=== PATIENT | female | born 1950 | race Caucasian/White ===

== ENCOUNTER 2016-07-28 13:05 | Outpatient (CLI) | payer MEDICARE, OTHER | END 2016-07-28 13:06 | DX: N18.9 Chronic kidney disease, unspecified (principal); E78.5 Hyperlipidemia, unspecified; E11.9 Type 2 diabetes mellitus without complications; I10 Essential (primary) hypertension ==

== ENCOUNTER 2017-08-06 08:00 | Outpatient (CLI) | payer MEDICARE, OTHER ==
[2017-08-06 19:32] LABS: ALBUMIN 3.6 g/dL (3.2-5.5); ALBUMIN/GLOBULIN RATIO 0.9 (1.0-2.2); ALKALINE PHOSPHATASE 66 IU/L (42-121); ALT ALANINE AMINOTRANSFERASE 18 IU/L (10-60); AST ASPARTATE AMINOTRANSFERASE 21 IU/L (10-42); BILIRUBIN,TOTAL 0.2 mg/dL (0.2-1.0); BUN - BLOOD UREA NITROGEN 30 mg/dL (6-20); CALCIUM 8.6 mg/dL (8.5-10.3); CARBON DIOXIDE - CO2 24 mmol/L (21-32); CHLORIDE 104 mmol/L (101-111); CHOL/HDL RATIO 4.9 (<4.4); CHOLESTEROL 227 mg/dL; CREATININE 1.6 mg/dL (0.4-1.0); GFR - MDRD 32 (>89); GLUCOSE 98 mg/dL (70-100); HDL CHOLESTEROL 46 mg/dL; LDL CHOLESTEROL,CALCULATED 130 mg/dL; LDL/HDL RATIO 2.8 (<4.4); SODIUM 140 mmol/L (135-145); TOTAL PROTEIN 7.6 g/dL (6.7-8.2); VLDL CHOLESTEROL 51 mg/dL
[2017-08-06 20:12] LABS: HB2 TOTAL 13.9 g/dL; HEMOGLOBIN A1C 0.69 g/dL; HEMOGLOBIN A1C % 6.7 % (4.6-6.2)
== END 2017-08-06 08:01 | disposition home or self-care (01) ==
LOC: LAB.WCP 08:00
PROVIDERS: ATTEND Family Medicine
DX: E11.22 Type 2 diabetes mellitus with diabetic chronic kidney disease (principal); I12.9 Hypertensive chronic kidney disease with stage 1 through stage 4 chronic kidney disease, or unspecified chronic kidney disease; N18.9 Chronic kidney disease, unspecified; E78.5 Hyperlipidemia, unspecified
CPT/HCPCS: 36415; 80053; 80061; 82043; 83036; 83721

== ENCOUNTER 2018-06-23 14:41 | Outpatient (CLI) | payer MEDICARE, OTHER ==
[2018-06-23 18:56] LABS: BASOPHILS # (AUTO) 0.1 10^3/uL (0.0-0.1); EOSINOPHILS # (AUTO) 0.2 10^3/uL (0.0-0.7); EOSINOPHILS % (AUTO) 2.6 %; HGB - HEMOGLOBIN 11.3 g/dL (12.0-16.0); LYMPHOCYTES # (AUTO) 2.3 10^3/uL (1.5-3.5); LYMPHOCYTES % (AUTO) 26.2 %; MEAN CORPUSCULAR HGB CONC 32.3 g/dL (32.0-36.0); MEAN CORPUSCULAR VOLUME 86.7 fL (81.0-99.0); MEAN PLATELET VOLUME 8.3 fL (7.9-10.8); MONOCYTES # (AUTO) 0.5 10^3/uL (0.0-1.0); MONOCYTES % (AUTO) 5.6 %; NEUTROPHILS # (AUTO) 5.6 10^3/uL (1.5-6.6); NEUTROPHILS % (AUTO) 64.6 %; PLT - PLATELET COUNT 292 10^3/uL (130-450); RED BLOOD COUNT 4.03 10^6/uL (4.20-5.40); WHITE BLOOD COUNT 8.6 x10^3/uL (4.8-10.8)
[2018-06-23 19:21] LABS: ALBUMIN/GLOBULIN RATIO 0.7 (1.0-2.2); ALKALINE PHOSPHATASE 62 IU/L (42-121); ALT ALANINE AMINOTRANSFERASE 13 IU/L (10-60); AST ASPARTATE AMINOTRANSFERASE 14 IU/L (10-42); BILIRUBIN,TOTAL 0.4 mg/dL (0.2-1.0); BUN - BLOOD UREA NITROGEN 33 mg/dL (6-20); CALCIUM 8.8 mg/dL (8.5-10.3); CARBON DIOXIDE - CO2 24 mmol/L (21-32); CHLORIDE 106 mmol/L (101-111); CHOL/HDL RATIO 4.8 (<4.4); CHOLESTEROL 213 mg/dL; CREATININE 2.4 mg/dL (0.4-1.0); GFR - MDRD 20 (>89); GLUCOSE 74 mg/dL (70-100); HDL CHOLESTEROL 44 mg/dL; LDL CHOLESTEROL,CALCULATED 111 mg/dL; LDL/HDL RATIO 2.5 (<4.4); SODIUM 141 mmol/L (135-145); TOTAL PROTEIN 7.2 g/dL (6.7-8.2); VLDL CHOLESTEROL 58 mg/dL
[2018-06-23 20:13] LABS: HB2 TOTAL 10.8 g/dL; HEMOGLOBIN A1C 0.45 g/dL
== END 2018-06-23 23:59 | disposition home or self-care (01) ==
LOC: LAB.WCP 14:41
PROVIDERS: ATTEND Family Medicine
DX: I10 Essential (primary) hypertension (principal); E11.9 Type 2 diabetes mellitus without complications; N18.9 Chronic kidney disease, unspecified; E78.5 Hyperlipidemia, unspecified
CPT/HCPCS: 36415; 80053; 80061; 83036; 83721; 84443; 85025

== ENCOUNTER 2018-07-14 14:48 | Outpatient (CLI) | payer MEDICARE, OTHER ==
--- NOTE | 2018-07-14 16:38 | XRAY Report ---
Reason: COUGH Procedure Date: 07/14/2018 Accession Number: [id number] / [id number] Procedure: WCP - Chest 2 View X-Ray CPT Code: 47917 FULL RESULT: EXAM: CHEST RADIOGRAPHY EXAM DATE: 07/14/2018 02:50 PM. CLINICAL HISTORY: COUGH. COMPARISON: None. TECHNIQUE: 2 views. FINDINGS: Lungs/Pleura: No focal opacities evident. No pleural effusion. No pneumothorax. Normal volumes. Mediastinum: Cardiomegaly. Other: Degenerative change in the spine. IMPRESSION: Cardiomegaly. Clear lungs. RADIA
== END 2018-07-14 14:49 | disposition home or self-care (01) ==
LOC: DI.WCP 14:48
PROVIDERS: ATTEND Family Medicine
DX: R05 Cough (principal); I51.7 Cardiomegaly
CPT/HCPCS: 71046

== ENCOUNTER 2018-07-23 13:15 | Outpatient (CLI) | payer MEDICARE, OTHER | END 2018-07-23 13:16 | disposition home or self-care (01) | LOC: DI 13:15 | PROVIDERS: ATTEND Family Medicine | DX: I51.7 Cardiomegaly (principal); I34.0 Nonrheumatic mitral (valve) insufficiency | CPT/HCPCS: 93306 ==

== ENCOUNTER 2018-08-10 15:34 | Outpatient (CLI) | payer MEDICARE, OTHER ==
[2018-08-10 19:47] LABS: CREATININE,URINE 176.1 mg/dL; PROTEIN/CREATININE RATIO,URINE 5.3 (<=0.2)
== END 2018-08-10 15:35 | disposition home or self-care (01) ==
LOC: LAB.WCP 15:34
PROVIDERS: ATTEND Internal Medicine Nephrology
DX: R80.9 Proteinuria, unspecified (principal)
CPT/HCPCS: 82570; 84156

== ENCOUNTER 2018-08-17 08:00 | Outpatient (CLI) | payer MEDICARE, OTHER ==
[2018-08-17 19:27] LABS: CALCIUM 8.9 mg/dL (8.5-10.3); CREATININE 2.4 mg/dL (0.4-1.0)
[2018-08-19 22:11] LABS: ANCA SCREEN NEGATIVE (NEGATIVE)
[2018-08-19 23:31] LABS: ANA SCREEN NEGATIVE (NEGATIVE)
[2018-08-20 11:30] LABS: GLOM BASEMENT MEMBRANE AB IGG <1.0 AI (<1.0)
[2018-08-25 12:51] LABS: ALPHA 1 GLOBULIN 0.4 g/dL (0.2-0.3); ALPHA 2 GLOBULIN 1.1 g/dL (0.5-0.9); BETA 1 GLOBULIN 0.5 g/dL (0.4-0.6); BETA 2 GLOBULIN 0.6 g/dL (0.2-0.5); GAMMA GLOBULIN 1.1 g/dL (0.8-1.7)
== END 2018-08-17 23:59 ==
LOC: LAB.WCP 08:00
PROVIDERS: ATTEND Internal Medicine Nephrology
DX: L93.2 Other local lupus erythematosus (principal); I50.32 Chronic diastolic (congestive) heart failure; M31.30 Wegener's granulomatosis without renal involvement; N00.9 Acute nephritic syndrome with unspecified morphologic changes; D47.2 Monoclonal gammopathy
CPT/HCPCS: 36415; 80048; 81599; 82570; 83520; 83880; 84155; 84165; 84166; 86021; 86038

== ENCOUNTER 2018-09-01 08:00 | Outpatient (CLI) | payer MEDICARE, OTHER ==
[2018-09-01 19:19] LABS: CALCIUM 8.9 mg/dL (8.5-10.3); CREATININE 2.6 mg/dL (0.4-1.0)
== END 2018-09-01 23:59 | disposition home or self-care (01) ==
LOC: LAB.WCP 08:00
PROVIDERS: ATTEND Internal Medicine Nephrology
DX: N05.9 Unspecified nephritic syndrome with unspecified morphologic changes (principal)
CPT/HCPCS: 36415; 80048

== ENCOUNTER 2018-09-23 11:27 | Outpatient (CLI) | payer MEDICARE, OTHER ==
[2018-09-23 11:52] LABS: HGB - HEMOGLOBIN 8.9 g/dL (12.0-16.0); MEAN CORPUSCULAR HEMOGLOBIN 28.7 pg (27.0-31.0); MEAN CORPUSCULAR HGB CONC 33.3 g/dL (32.0-36.0); RED BLOOD COUNT 3.11 10^6/uL (4.20-5.40); RED CELL DISTRIBUTION WIDTH 14.3 % (12.0-15.0); WHITE BLOOD COUNT 10.1 x10^3/uL (4.8-10.8)
[2018-09-23 11:57] LABS: CALCIUM 7.8 mg/dL (8.5-10.3); CREATININE 2.9 mg/dL (0.4-1.0)
== END 2018-09-23 11:28 | disposition home or self-care (01) ==
LOC: LAB 11:27
PROVIDERS: ATTEND Internal Medicine Nephrology
DX: N05.9 Unspecified nephritic syndrome with unspecified morphologic changes (principal); D70.9 Neutropenia, unspecified; D63.1 Anemia in chronic kidney disease
CPT/HCPCS: 36415; 80048; 85027

== ENCOUNTER 2018-09-29 14:01 | Outpatient (CLI) | payer MEDICARE, OTHER ==
--- NOTE | 2018-09-29 19:13 | XRAY Report ---
Reason: DYSPNEA Procedure Date: 09/29/2018 Accession Number: [id number] / [id number] Procedure: WCP - Chest 2 View X-Ray CPT Code: 32305 FULL RESULT: EXAM: CHEST RADIOGRAPHY EXAM DATE: 09/29/2018 02:16 PM. CLINICAL HISTORY: Status post retroperitoneal bleed from kidney biopsy now with left-sided pain, shortness of breath and decreased oxygen saturation. COMPARISON: 07/14/2018 and 09/20/2018 chest x-ray TECHNIQUE: 2 views. FINDINGS: Lungs/Pleura: Moderate left pleural effusion and associated passive atelectasis. Lungs otherwise clear. Mediastinum: Large heart Other: Slight height loss at T7 and T8. IMPRESSION: Left pleural effusion and basilar airspace disease. Cardiomegaly. RADIA
== END 2018-09-29 14:02 | disposition home or self-care (01) ==
LOC: DI.WCP 14:01
PROVIDERS: ATTEND Family Medicine
DX: R06.00 Dyspnea, unspecified (principal); J90 Pleural effusion, not elsewhere classified; I51.7 Cardiomegaly
CPT/HCPCS: 71046

== ENCOUNTER 2018-09-29 14:59 | Emergency (ER) | payer MEDICARE, OTHER ==
[2018-09-29 16:38] LABS: BASOPHILS # (AUTO) 0.1 10^3/uL (0.0-0.1); BASOPHILS % (AUTO) 0.9 %; EOSINOPHILS # (AUTO) 0.1 10^3/uL (0.0-0.7); EOSINOPHILS % (AUTO) 0.8 %; HGB - HEMOGLOBIN 9.6 g/dL (12.0-16.0); LYMPHOCYTES # (AUTO) 1.2 10^3/uL (1.5-3.5); LYMPHOCYTES % (AUTO) 9.1 %; MEAN CORPUSCULAR HEMOGLOBIN 27.8 pg (27.0-31.0); MEAN CORPUSCULAR HGB CONC 32.6 g/dL (32.0-36.0); MEAN CORPUSCULAR VOLUME 85.4 fL (81.0-99.0); MEAN PLATELET VOLUME 7.6 fL (7.9-10.8); MONOCYTES # (AUTO) 0.9 10^3/uL (0.0-1.0); MONOCYTES % (AUTO) 6.6 %; NEUTROPHILS # (AUTO) 10.9 10^3/uL (1.5-6.6); NEUTROPHILS % (AUTO) 82.6 %; PLT - PLATELET COUNT 446 10^3/uL (130-450); RED BLOOD COUNT 3.44 10^6/uL (4.20-5.40); WHITE BLOOD COUNT 13.2 x10^3/uL (4.8-10.8)
[2018-09-29 16:46] LABS: INR 1.2 (0.8-1.2); PT - PROTHROMBIN TIME 13.2 secs (9.9-12.6)
[2018-09-29 16:53] LABS: ALBUMIN 2.9 g/dL (3.2-5.5); ALBUMIN/GLOBULIN RATIO 0.6 (1.0-2.2); BILIRUBIN,TOTAL 0.9 mg/dL (0.2-1.0); CALCIUM 8.5 mg/dL (8.5-10.3); CREATININE 2.8 mg/dL (0.4-1.0); TOTAL PROTEIN 7.5 g/dL (6.7-8.2)
--- NOTE | 2018-09-29 17:32 | ED Physician Documentation ---
History of Present Illness - Stated complaint Stated Complaint: SENT BY DOC - Chief complaint Chief Complaint: General - History obtained from History obtained from: Patient, Family - History of Present Illness Timing: How many days ago (several) - Additonal information Additional information: 68-year-old female presents to the emergency department 10 days status post a kidney biopsy accompanied by retroperitoneal hematoma. She received 2 units of blood after this. She states she has had increasing shortness of breath over the past week or so, saw her doctor today and had a left-sided pleural effusion on chest x-ray. Her primary care doctor was concerned about a possible recurrent retroperitoneal bleed and sent her here. Patient states she has had n o fevers. No coughing. She is short of breath with exertion. No leg pain or chest pain. Better with rest and worse with exertion Review of Systems Constitutional: denies: Fever, Chills Respiratory: denies: Cough GI: denies: Abdominal Pain, Nausea, Vomiting, Diarrhea : denies: Dysuria, Frequency, Hesitancy, Hematuria Skin: denies: Rash Musculoskeletal: denies: Neck pain, Back pain Neurologic: denies: Headache PD PAST MEDICAL HISTORY - Past Medical History Past Medical History: Yes Cardiovascular: Hypertension Endocrine/Autoimmune: Type 2 diabetes - Past Surgical History Past Surgical History: Yes - Present Medications Home Medications: Ambulatory Orders Medication Instructions Recorded Confirmed Cephalexin [Keflex] 500 mg PO Q6H 7 Days capsule 01/04/15 - Allergies Allergies/Adverse Reactions: Allergies Allergy/AdvReac Type Severity Reaction Status Date / Time No Known Drug Allergies Allergy Verified 09/29/18 15:59 - Social History Does the pt smoke?: No Smoking Status: Never smoker Does the pt drink ETOH?: No Does the pt have substance abuse?: No - Immunizations Immunizations are current?: No - POLST Patient has POLST: No Results - Vitals Vitals: Vital Signs - 24 hr 09/29/18 09/29/18 09/29/18 15:50 17:09 19:12 Temperature 36.4 C L Heart Rate 63 70 63 Respiratory 18 16 18 Rate Blood Pressure 138/65 H 166/77 H 150/74 H O2 Saturation 95 95 95 09/29/18 09/29/18 09/29/18 19:42 20:39 22:00 Temperature 37.0 C 37.0 C Heart Rate 71 63 57 L Respiratory 25 H 14 18 Rate Blood Pressure 174/81 H 157/70 H 145/60 H O2 Saturation 95 98 97 Oxygen O2 Source Room air Oxygen Flow Rate 2 - Labs Labs: Laboratory Tests 09/29/18 09/29/18 09/29/18 16:30 16:30 16:30 WBC 13.2 H RBC 3.44 L Hgb 9.6 L Hct 29.4 L MCV 85.4 MCH 27.8 MCHC 32.6 RDW 14.0 Plt Count 446 MPV 7.6 L Neut # (Auto) 10.9 H Lymph # (Auto) 1.2 L Jack # (Auto) 0.9 Eos # (Auto) 0.1 Baso # (Auto) 0.1 Absolute Nucleated RBC 0.01 Nucleated RBC % 0.1 PT 13.2 H INR 1.2 APTT 33.0 Sodium 134 L Potassium 4.2 Chloride 103 Carbon Dioxide 18 L Anion Gap 13.0 BUN 42 H Creatinine 2.8 H Estimated GFR (MDRD) 17 L Glucose 73 Calcium 8.5 Total Bilirubin 0.9 AST 41 ALT 56 Alkaline Phosphatase 135 H Total Protein 7.5 Albumin 2.9 L Globulin 4.6 H Albumin/Globulin Ratio 0.6 L Lipase 52 H - Rads (name of study) CT abd/pelvis Radiology: Prelim report reviewed, EMP read contemporaneously, See rad report (Moderate amount of left perinephric and retroperitoneal hemorrhage, mildly displacing the left kidney. ) CT chest Radiology: Prelim report reviewed, EMP read contemporaneously, See rad report (Small to moderate left pleural effusion with basilar left lower lobe collapse. 2. Cardiomegaly. ) PD MEDICAL DECISION MAKING - ED course Complexity details: reviewed results, re-evaluated patient, considered differential, d/w patient, d/w family, d/w python consultant ED course: 68-year-old female presents to the emergency department status post a left kidney biopsy approximately 10 days ago. She received a blood transfusion after that. Appears to still have a moderate amount of hemorrhage that appears to be irritating the diaphragm likely causing her pleural effusion on the left. She is hypoxic as well, 88% on room air when walking to the bed. Feels better on oxygen. Discussed the case with 1944 Star Finch in [place] nephrology who recommends admission and diuresis. He recommends admitting the patient here. Discussed the case with 1949 Dr. Ramos, hospitalist he states that the patient is an appropriate for our facility and recommends transfer to [facility]. Recontacted 2004 Dr. Waite who states that that the patient can be transferred to [facility] and accepts in transfer. COBRA forms filled out. Patient transferred This document was made in part using voice recognition software. While efforts are made to proofread this document, sound alike and grammatical errors may occur. Departure - Departure Disposition: 02 Transfer Acute Care Hosp Clinical Impression: Retroperitoneal hemorrhage, Pleural effusion, left, Hypoxia Condition: Stable
--- NOTE | 2018-09-29 19:16 | CT Report ---
Reason: L pleural effusion Procedure Date: 09/29/2018 Accession Number: [id number] / [id number] Procedure: CT - CHEST WO CPT Code: FULL RESULT: EXAM: CT CHEST EXAM DATE: 09/29/2018 05:59 PM. CLINICAL HISTORY: Left pleural effusion. COMPARISONS: ABDOMEN/PELVIS W/ 09/29/2018 5:59 PM CHEST 2 VIEW 09/29/2018 1:55 PM. TECHNIQUE: Routine helical CT imaging was performed through the chest. IV contrast: None. Reconstructions: Coronal and sagittal. In accordance with CT protocol optimization, one or more of the following dose reduction techniques were utilized for this exam: automated exposure control, adjustment of mA and/or KV based on patient size, or use of iterative reconstructive technique. FINDINGS: Lungs/Pleura: There is a small to moderate left pleural effusion. There is basilar left lower lobe collapse. There is mosaic attenuation throughout the remainder of the pulmonary parenchyma. Mild atelectasis in the inferior lingula. No right pleural effusion. No pneumothorax. Mediastinum: The heart is enlarged. No pericardial effusion. No lymphadenopathy. Bones: Unremarkable. Visualized Abdomen: See separately dictated CT. Other: None. IMPRESSION: 1. Small to moderate left pleural effusion with basilar left lower lobe collapse. 2. Cardiomegaly. RADIA
--- NOTE | 2018-09-29 19:35 | CT Report ---
Reason: recent kidney bx, possible retroperitoneal bleed? Procedure Date: 09/29/2018 Accession Number: [id number] / [id number] Procedure: CT - Abdomen/Pelvis WO CPT Code: FULL RESULT: EXAM: CT ABDOMEN AND PELVIS (CT KUB) EXAM DATE: 09/29/2018 05:59 PM. CLINICAL HISTORY: Recent kidney biopsy COMPARISONS: CHEST W/ 09/29/2018 5:59 PM. TECHNIQUE: Routine axial helical CT imaging was performed through the abdomen and pelvis without IV contrast. Reconstructions: Coronal and sagittal. In accordance with CT protocol optimization, one or more of the following dose reduction techniques were utilized for this exam: automated exposure control, adjustment of mA and/or KV based on patient size, or use of iterative reconstructive technique. FINDINGS: Evaluation of solid abdominal organs is limited without intravenous contrast. Lung Bases: See separately dictated CT. Right Kidney/Ureter: No stone, hydronephrosis, or hydroureter. No perinephric fat stranding. Left Kidney/Ureter: Moderate amount of perinephric and retroperitoneal hemorrhage with dominant component measuring 7.1 x 4.7 x 13.4 cm. Hemorrhage extends into the left upper quadrant abutting the left hemidiaphragm measuring 5.2 x 4.0 cm. The left kidney is mildly displaced anteriorly by the hemorrhage. No hydronephrosis. Other Solid Organs: 12 mm hypoattenuating right liver lesion. Noncontrast images of the solid organs are grossly unremarkable. Gallbladder/Bile Ducts: Unremarkable. Peritoneal Cavity: No free fluid, free air or anna marie adenopathy. Left retroperitoneal hemorrhage as described. No hemoperitoneum. Pelvic Organs: The bladder is unremarkable. Uterus and adnexa are unremarkable. Vasculature: Mild atherosclerosis. Other: Left flank subcutaneous edema. IMPRESSION: Moderate amount of left perinephric and retroperitoneal hemorrhage, mildly displacing the left kidney. REY The call report notification system was initiated by Dr. Cesar Law at 07:21 PM on 09/29/2018. The above call report findings were discussed with Yeyo Velazquez by Dr. Cesar Law at 07:28 PM on 09/29/2018.
[2018-09-29 23:34] VITALS: BP 154/72
== END 2018-09-29 23:45 | disposition short-term general hospital (02) ==
LOC: ED 14:59
DX: R58 Hemorrhage, not elsewhere classified (principal); J90 Pleural effusion, not elsewhere classified; R09.02 Hypoxemia; I10 Essential (primary) hypertension; E11.9 Type 2 diabetes mellitus without complications; I51.7 Cardiomegaly
CPT/HCPCS: 36415; 71046; 71250; 74176; 80053; 83690; 85025; 85610; 85730; 99284

== ENCOUNTER 2018-10-19 14:21 | Outpatient (CLI) | payer MEDICARE, OTHER ==
[2018-10-19 19:58] LABS: BASOPHILS # (AUTO) 0.1 10^3/uL (0.0-0.1); BASOPHILS % (AUTO) 1.4 %; EOSINOPHILS # (AUTO) 0.2 10^3/uL (0.0-0.7); EOSINOPHILS % (AUTO) 2.6 %; HGB - HEMOGLOBIN 10.8 g/dL (12.0-16.0); LYMPHOCYTES # (AUTO) 2.1 10^3/uL (1.5-3.5); LYMPHOCYTES % (AUTO) 24.7 %; MEAN CORPUSCULAR HEMOGLOBIN 27.7 pg (27.0-31.0); MEAN CORPUSCULAR HGB CONC 31.9 g/dL (32.0-36.0); MEAN CORPUSCULAR VOLUME 86.8 fL (81.0-99.0); MEAN PLATELET VOLUME 8.7 fL (7.9-10.8); MONOCYTES # (AUTO) 0.6 10^3/uL (0.0-1.0); MONOCYTES % (AUTO) 7.2 %; NEUTROPHILS # (AUTO) 5.3 10^3/uL (1.5-6.6); NEUTROPHILS % (AUTO) 64.1 %; PLT - PLATELET COUNT 375 10^3/uL (130-450); RED BLOOD COUNT 3.91 10^6/uL (4.20-5.40); RED CELL DISTRIBUTION WIDTH 14.5 % (12.0-15.0); WHITE BLOOD COUNT 8.3 x10^3/uL (4.8-10.8)
[2018-10-19 20:14] LABS: CALCIUM 9.1 mg/dL (8.5-10.3); CREATININE 3.1 mg/dL (0.4-1.0); PHOSPHORUS 4.6 mg/dL (2.5-4.6)
[2018-10-19 20:43] LABS: CREATININE,URINE 302.5 mg/dL; PROTEIN/CREATININE RATIO,URINE 4.1 (<=0.2)
== END 2018-10-19 14:22 | disposition home or self-care (01) ==
LOC: LAB.WCP 14:21
PROVIDERS: ATTEND Internal Medicine Nephrology
DX: N05.9 Unspecified nephritic syndrome with unspecified morphologic changes (principal); I50.32 Chronic diastolic (congestive) heart failure; E83.30 Disorder of phosphorus metabolism, unspecified; R80.9 Proteinuria, unspecified; N25.81 Secondary hyperparathyroidism of renal origin
CPT/HCPCS: 36415; 80048; 82570; 83880; 83970; 84100; 84156; 85025

== ENCOUNTER 2018-10-28 13:53 | Outpatient (CLI) | payer MEDICARE, OTHER ==
--- NOTE | 2018-10-28 16:14 | XRAY Report ---
Reason: PLEURAL EFFUSION Procedure Date: 10/28/2018 Accession Number: [id number] / [id number] Procedure: WCP - Chest 2 View X-Ray CPT Code: 60443 FULL RESULT: EXAM: CHEST RADIOGRAPHY 2 VIEWS EXAM DATE: 10/28/2018. CLINICAL HISTORY: Left pleural effusion. COMPARISON: PA and lateral chest on 09/29/2018.. TECHNIQUE: PA and lateral views. FINDINGS: Lungs/Pleura: The left pleural effusion and left lung atelectasis have resolved. Lungs appear clear. The vasculature is normal. No pneumothorax. Mediastinum: Cardiomegaly and aortic tortuosity are unchanged. Bones: Slight decrease in height at T7 and T8, probably developmental, and unchanged. IMPRESSION: Left pleural effusion and left lung atelectasis have resolved since 09/29/2018. Cardiomegaly and aortic tortuosity are unchanged. RADIA
== END 2018-10-28 13:54 | disposition home or self-care (01) ==
LOC: DI.WCP 13:53
PROVIDERS: ATTEND Family Medicine
DX: J90 Pleural effusion, not elsewhere classified (principal); I51.7 Cardiomegaly; Q25.46 Tortuous aortic arch
CPT/HCPCS: 71046

== ENCOUNTER 2018-11-03 08:00 | Outpatient (CLI) | payer MEDICARE, OTHER ==
[2018-11-03 18:59] LABS: CHOLESTEROL 257 mg/dL; HDL CHOLESTEROL 32 mg/dL; LDL CHOLESTEROL,CALCULATED 154 mg/dL; LDL/HDL RATIO 4.8 (<4.4); VLDL CHOLESTEROL 71 mg/dL
[2018-11-03 19:19] LABS: HB2 TOTAL 12.3 g/dL; HEMOGLOBIN A1C 0.52 g/dL
== END 2018-11-03 23:59 | disposition home or self-care (01) ==
LOC: LAB.WCP 08:00
PROVIDERS: ATTEND Family Medicine
DX: E11.9 Type 2 diabetes mellitus without complications (principal); E78.5 Hyperlipidemia, unspecified
CPT/HCPCS: 36415; 80061; 83036; 83721

== ENCOUNTER 2018-12-23 08:00 | Outpatient (CLI) | payer MEDICARE, OTHER ==
[2018-12-23 19:05] LABS: BASOPHILS # (AUTO) 0.1 10^3/uL (0.0-0.1); BASOPHILS % (AUTO) 0.6 %; EOSINOPHILS # (AUTO) 0.3 10^3/uL (0.0-0.7); EOSINOPHILS % (AUTO) 2.6 %; HGB - HEMOGLOBIN 11.7 g/dL (12.0-16.0); LYMPHOCYTES # (AUTO) 2.8 10^3/uL (1.5-3.5); LYMPHOCYTES % (AUTO) 23.6 %; MEAN CORPUSCULAR HEMOGLOBIN 28.8 pg (27.0-31.0); MEAN CORPUSCULAR HGB CONC 32.1 g/dL (32.0-36.0); MEAN CORPUSCULAR VOLUME 89.9 fL (81.0-99.0); MEAN PLATELET VOLUME 10.7 fL (7.9-10.8); MONOCYTES # (AUTO) 0.8 10^3/uL (0.0-1.0); NEUTROPHILS # (AUTO) 7.7 10^3/uL (1.5-6.6); NEUTROPHILS % (AUTO) 65.6 %; PLT - PLATELET COUNT 325 10^3/uL (130-450); RED BLOOD COUNT 4.06 10^6/uL (4.20-5.40); RED CELL DISTRIBUTION WIDTH 13.2 % (12.0-15.0); WHITE BLOOD COUNT 11.7 x10^3/uL (4.8-10.8)
[2018-12-23 19:34] LABS: CALCIUM 9.5 mg/dL (8.5-10.3); CREATININE 2.3 mg/dL (0.4-1.0)
== END 2018-12-23 23:59 | disposition home or self-care (01) ==
LOC: LAB.WCP 08:00
PROVIDERS: ATTEND Internal Medicine Nephrology
DX: N05.9 Unspecified nephritic syndrome with unspecified morphologic changes (principal); D70.9 Neutropenia, unspecified
CPT/HCPCS: 36415; 80048; 85025

== ENCOUNTER 2019-11-27 18:50 | Observation (INO) | payer MEDICARE, OTHER ==
--- NOTE | 2019-11-27 19:40 | XRAY Report ---
PROCEDURE: Chest 1 View X-Ray INDICATIONS: Chest pain TECHNIQUE: One view of the chest was acquired. COMPARISON: Chest x-ray, 2 view, October 28, 2018. FINDINGS: Surgical changes and devices: None. Lungs and pleura: Mild interstitial prominence. No pleural effusions or pneumothorax. Lungs are marta ar. Mediastinum: Mediastinal contours appear normal. Heart size is normal. Bones and chest wall: No suspicious bony lesions. Overlying soft tissues appear unremarkable. IMPRESSION: No acute cardiopulmonary disease. Reviewed by: Rakesh Bhardwaj MD on 11/27/2019 7:38 PM PDT Approved by: Rakesh Bhardwaj MD on 11/27/2019 7:38 PM PDT Station ID: [id number]
--- NOTE | 2019-11-27 20:22 | ED Physician Documentation ---
PD HPI FOCAL NEURO - Stated complaint Stated Complaint: NUMBNESS LT SHOULDER - Chief complaint Chief Complaint: Cardiac - History obtained from History obtained from: Patient, Family - Additional information Additional information: 69-year-old woman with history of renal insufficiency, over the last week she has had waxing and waning but fairly constant left-sided numbness mostly involving the arm but also notable in the face. She has some weakness in the left arm. Review of Systems Ten Systems: 10 systems reviewed and negative Constitutional: denies: Fever, Chills GI: denies: Abdominal Pain, Nausea, Vomiting Neurologic: reports: Headache (Mild frontal and left-sided) PD PAST MEDICAL HISTORY - Past Medical History Cardiovascular: Hypertension Endocrine/Autoimmune: Type 2 diabetes - Past Surgical History Past Surgical History: Yes - Present Medications Home Medications: Ambulatory Orders Medication Instructions Recorded Confirmed Felodipine [Felodipine ER] 10 mg PO DAILY 11/27/19 11/27/19 Furosemide [Lasix] 40 mg PO DAILY 11/27/19 11/27/19 Insulin Glargine [Lantus Solostar] 15 units SQ DAILY 11/27/19 11/27/19 Simvastatin 40 mg PO DAILY 11/27/19 11/27/19 atenoloL [Atenolol] 100 mg PO DAILY 11/27/19 11/27/19 - Allergies Allergies/Adverse Reactions: Allergies Allergy/AdvReac Type Severity Reaction Status Date / Time No Known Drug Allergies Allergy Verified 11/27/19 19:15 - Social History Does the pt smoke?: No Smoking Status: Never smoker Does the pt drink ETOH?: No Does the pt have substance abuse?: No - Immunizations Immunizations are current?: No - POLST Patient has POLST: No PD ED PE NORMAL - Vitals Vital signs reviewed: Yes - General General: Alert and oriented X 3, No acute distress - HEENT HEENT: PERRL, EOMI - Neck Neck: Supple, no meningeal sign, No bony TTP - Cardiac Cardiac: RRR, No murmur - Respiratory Respiratory: No respiratory distress, Clear bilaterally - Abdomen Abdomen: Non tender - Back Back: No CVA TTP, No spinal TTP - Derm Derm: Normal color, Warm and dry - Extremities Extremities: No tenderness to palpate, No edema, No calf tenderness / cord - Neuro Neuro: Alert and oriented X 3, Normal speech NIHSS - Time Time: 20:10 - Level of Consciousness Level of consciousness: (0) Alert, Keenly responsive LOC Questions: (0) Answers both Q's correct LOC Commands: (0) Performs both correctly - Gaze Best Gaze: (0) Normal - Visual Visual: (0) No loss - Facial Palsy Facial Palsy: (0) Normal, symmetrical movement - Motor Arms (both separate) Motor Arm (right): (0) No drift Motor Arm (left): (0) No drift - Motor Legs (both separate) Motor Leg (right): (0) No drift Motor Leg (left): (0) No drift - Limb Ataxia Limb Ataxia: (0) Absent - Sensory Sensory: (1) [id number]-[id number] loss (Left face and arm, spares the leg) - Best Language Best Language: (0) No aphasia - Dysarthria Dysarthria: (0) Normal - Extinction and Inattention (formally neg Extinction and inattention: (0) No abnormality - Total Score/Results Total Score/Result: 1 Results - Vitals Vitals: Vital Signs - 24 hr 11/27/19 11/27/19 11/27/19 19:08 20:18 20:35 Temperature 36.5 C Heart Rate 57 L 114 H 64 Respiratory 16 15 16 Rate Blood Pressure 131/71 H 93/56 L 165/74 H O2 Saturation 99 98 99 11/27/19 11/27/19 11/27/19 21:15 21:16 21:36 Temperature Heart Rate 64 65 62 Respiratory 18 18 13 Rate Blood Pressure 172/79 H 172/79 H 176/78 H O2 Saturation 98 98 98 11/27/19 22:00 Temperature Heart Rate 64 Respiratory 15 Rate Blood Pressure 181/83 H O2 Saturation 99 Oxygen O2 Source Room air - EKG (time done) 191 Rate: Rate (enter#) (191) Rhythm: NSR Amonate: Normal QRS: Normal, LVH Ischemia: Normal ST segments Computer interpretation: Agree with computer - Labs Labs: Laboratory Tests 11/27/19 11/27/19 11/27/19 20:28 20:28 20:28 WBC 13.6 H RBC 3.65 L Hgb 10.7 L Hct 31.9 L MCV 87.4 MCH 29.3 MCHC 33.5 RDW 13.2 Plt Count 269 MPV 10.3 Neut # (Auto) 10.1 H Lymph # (Auto) 2.2 [place] # (Auto) 0.6 Eos # (Auto) 0.4 Baso # (Auto) 0.1 Absolute Nucleated RBC 0.00 Nucleated RBC % 0.0 Sodium 135 Potassium 4.1 Chloride 102 Carbon Dioxide 18 L Anion Gap 15.0 H BUN 82 H* Creatinine 5.2 H Estimated GFR (MDRD) 8 L Glucose 146 H Calcium 8.4 L Total Bilirubin 0.4 AST 12 ALT 12 Alkaline Phosphatase 61 Troponin I High Sens 12.9 Total Protein 8.3 H Albumin 3.9 Globulin 4.4 H Albumin/Globulin Ratio 0.9 L Lipase 99 H - Rads (name of study) CT Head Radiology: EMP read contemporaneously (NAD) PD MEDICAL DECISION MAKING - ED course ED course: 69-year-old woman with history of renal insufficiency presents with waxing and waning but fairly constant left-sided sensory deficits of the arm and face. Distribution would suggest a central phenomenon as opposed to cervical radiculopathy or early Cummings's palsy. Clearly she is not a TPA candidate because of the time course. Case discussed by phone with Dr. Mcleod on on-call for her business applications specialist, Dr. Woods. He reviewed her chart, patient was lost to follow-up since December of last year. She has a history of nephropathy, they are not sure if it is IgA nephropathy or FSGS. Regardless she is on Lasix and wanted that stopped and to follow-up with Dr. Chuck KRAUSE outpatient. Aspirin was ordered. CT Head without acute issue. Spoke with Dr. Vann for admission at 10:08 PM. Departure - Departure Disposition: ED Place in Observation Clinical Impression: Stroke-like symptom, Chronic renal failure Condition: Serious
[2019-11-27 20:36] LABS: BASOPHILS # (AUTO) 0.1 10^3/uL (0.0-0.1); BASOPHILS % (AUTO) 0.8 %; EOSINOPHILS # (AUTO) 0.4 10^3/uL (0.0-0.7); EOSINOPHILS % (AUTO) 3.1 %; HGB - HEMOGLOBIN 10.7 g/dL (12.0-16.0); LYMPHOCYTES # (AUTO) 2.2 10^3/uL (1.5-3.5); LYMPHOCYTES % (AUTO) 16.4 %; MEAN CORPUSCULAR HEMOGLOBIN 29.3 pg (27.0-31.0); MEAN CORPUSCULAR HGB CONC 33.5 g/dL (32.0-36.0); MEAN CORPUSCULAR VOLUME 87.4 fL (81.0-99.0); MEAN PLATELET VOLUME 10.3 fL (7.9-10.8); MONOCYTES # (AUTO) 0.6 10^3/uL (0.0-1.0); MONOCYTES % (AUTO) 4.2 %; NEUTROPHILS # (AUTO) 10.1 10^3/uL (1.5-6.6); NEUTROPHILS % (AUTO) 74.6 %; PLT - PLATELET COUNT 269 10^3/uL (130-450); RED BLOOD COUNT 3.65 10^6/uL (4.20-5.40); RED CELL DISTRIBUTION WIDTH 13.2 % (12.0-15.0); WHITE BLOOD COUNT 13.6 x10^3/uL (4.8-10.8)
[2019-11-27 20:59] LABS: ALBUMIN 3.9 g/dL (3.2-5.5); ALBUMIN/GLOBULIN RATIO 0.9 (1.0-2.2); BILIRUBIN,TOTAL 0.4 mg/dL (0.2-1.0); CALCIUM 8.4 mg/dL (8.5-10.3); CREATININE 5.2 mg/dL (0.4-1.0); TOTAL PROTEIN 8.3 g/dL (6.7-8.2)
--- NOTE | 2019-11-27 21:38 | CT Report ---
PROCEDURE: HEAD WO INDICATIONS: stroke sx TECHNIQUE: Noncontrast 4.5 mm thick angled axial sections acquired from the foramen magnum to the vertex. For r adiation dose reduction, the following was used: automated exposure control, adjustment of mA and/or kV according to patient size. COMPARISON: None. FINDINGS: Image quality: Excellent. CSF spaces: Basal cisterns are patent. No extra-axial fluid collections. Ventricles are normal in size and shape. Brain: No midline shift. No intracranial masses or hemorrhage. There is mild cerebral volume loss. There are periventricular white matter chronic small vessel ischemic changes. Skull and face: Calvarium and visualized facial bones are intact, without suspicious lesions. Sinuses: Visualized sinuses and mastoids are clear. IMPRESSION: No acute intracranial abnormalities. Reviewed by: Rakesh Bhardwaj MD on 11/27/2019 9:37 PM PDT Approved by: Rakesh Bhardwaj MD on 11/27/2019 9:37 PM PDT Station ID: [id number]
[2019-11-27] MEDS ORDERED: ASPIRIN CHEW 81 MG TABLET PO STA (22:04)
[2019-11-27] MEDS ORDERED: ACETAMINOPHEN 325 MG TABLET PO PRN (22:08)
[2019-11-27] MEDS ORDERED: SODIUM CHLORIDE FLUSH 0.9% 10 ML SYRINGE IVP PRN (22:08)
[2019-11-27] MEDS ORDERED: ONDANSETRON 4 MG/2 ML VIAL IVP PRN (22:08)
--- NOTE | 2019-11-27 22:10 | HISTORY & PHYSICAL EXAMINATION ---
Chief Complaint - Chief Complaint Chief Complaint: Left face and arm numbness History of Present Illness - Admitted From Admitted From:: Home - History Obtained From Records Reviewed: Yes History obtained from: Patient, ER Physician, EMR - History of Present Illness HPI Comment/Other: This is a pleasant 69-year-old female with a past medical history significant for type 2 diabetes mellitus on insulin, hypertension, chronic kidney disease who presents today complaining of left-sided facial and arm numbness. She states her symptoms began about 1 week ago but initially were only lasting a few minutes at a time and have been intermittent. Today her symptoms returned and lasted for a few hours and so she sought medical attention. She also feels that today she had some left upper extremity weakness which was not present before. She states numbness in her face and arm always occur at the same time. She reports no slurred speech. She denies any weakness on the right side of her body or in her left lower extremity. She denies any history of stroke in the past. She is not on aspirin at home. Denies any history of atrial fibrillation. She reports that she currently still has ongoing symptoms although they have improved since earlier on in the day. She denies a history of migraines and reports no headache at this time. She does complain of some blurry vision which is chronic and she has cataracts. 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 When asked as to why she did not follow-up, she could not give an explanation. In the emergency department, she was afebrile temperature of 36.5 C. Her heart rate was 57. Her blood pressure was 131/71. She was not tachypneic and saturating well on room air. Labs are significant for a white count of 13.6, a BUN of 82, and a creatinine of 5.2. CT of the head was unremarkable. The ER provider did speak with the on-call [employer] who reported that the patient is a history of nephropathy and it was unclear if it was secondary to IgA nephropathy or FSGS. They recommended discontinuing the Lasix on discharge and to follow-up as soon as possible with Dr. Woods. The patient was administered 325 mg of aspirin in the emergency department. Given the above findings, medicine was consulted for admission. I did discuss goals of care the patient and she would like to be a full code. History - Past Medical History Cardiovascular: reports: Hypertension, High cholesterol Endocrine/Autoimmune: reports: Type 2 diabetes : reports: Renal insuffiency MRSA Hx?: No - Past Surgical History Cardiovascular: reports: Other (She reports a history of renal artery stenting in the early .) HEENT: reports: Cataracts - Family & Social History Family History Comment/Other: Her mother in her late 90s. She reports no family history of stroke or renal disease. Living arrangement: At home Living Situation: With spouse/s.o. Social History Notes: She lives at home with her , Nik. They are both retired. She does not smoke or drink any alcohol. - Substance History Use: Uses substance without health or social issues: NONE - POLST Patient has POLST: No Meds/Allgy - Home Medications Home Medications: Ambulatory Orders Medication Instructions Recorded Confirmed Felodipine [Felodipine ER] 10 mg PO DAILY 11/27/19 11/27/19 Furosemide [Lasix] 40 mg PO DAILY 11/27/19 11/27/19 Insulin Glargine [Lantus Solostar] 15 units SQ DAILY 11/27/19 11/27/19 Simvastatin 40 mg PO DAILY 11/27/19 11/27/19 atenoloL [Atenolol] 100 mg PO DAILY 11/27/19 11/27/19 - Allergies Allergies/Adverse Reactions: Allergies Allergy/AdvReac Type Severity Reaction Status Date / Time No Known Drug Allergies Allergy Verified 11/27/19 19:15 Review of Systems - Constitutional Constitutional: denies: Fatigue, Fever, Chills, Malaise, Weakness, Poor appetite - Eyes Eyes: reports: Blurred vision - Ears, Nose & Throat Ears, Nose & Throat: denies: Nasal discharge, Nasal congestion, Postnasal drainage, Sore throat - Cardiovascular Cariovascular: denies: Chest pain, Edema, Lightheadedness, Syncope, Exertional dyspnea, Decr. exercise tolerance - Respiratory Respiratory: denies: Cough, SOB at rest, SOB with exertion - Gastrointestinal Gastrointestinal: denies: Abdominal pain, Constipation, Diarrhea, Nausea, Vomiting - Genitourinary Genitourinary: denies: Dysuria, Frequency, Urgency, Hematuria - Musculoskeletal Musculoskeletal: reports: Muscle weakness. denies: Muscle pain, Limited range of motion, Joint pain - Integumentary Integumentary: denies: Rash - Neurological Neurological: reports: Focal weakness, Numbness. denies: General weakness, Headache, Dizziness, Memory problems - Hematologic/Lymphatic Hematologic/Lymphatic: denies: Bleeding tendencies - All Other Systems All Other Systems: reports: Reviewed and negative Prior Level of Functionality: She is independent with her ADL's. Exam - Vital Signs Reviewed Vital Signs: Yes Vital Signs: Vital Signs x48h Temp Pulse Resp BP Pulse Ox 11/27/19 22:00 64 15 181/83 H 99 11/27/19 21:36 62 13 176/78 H 98 11/27/19 21:16 65 18 172/79 H 98 11/27/19 21:15 64 18 172/79 H 98 11/27/19 20:35 64 16 165/74 H 99 11/27/19 20:18 114 H 15 93/56 L 98 11/27/19 19:08 36.5 C 57 L 16 131/71 H 99 - Physical Exam General Appearance: positive: Alert Eyes Bilateral: positive: Normal inspection, Conjunctivae nml ENT: positive: ENT inspection nml Neck: positive: Nml inspection Respiratory: positive: No respiratory distress. negative: Wheezes, Rales, Rhonchi Cardiovascular: positive: Regular rate & rhythm, No murmur. negative: Tachycardia, Bradycardia, Systolic murmur Abdomen: positive: Non-tender, No distention, Tenderness. negative: Guarding, Rebound Skin: positive: No rash, Warm, Dry Extremities: positive: Full ROM, No pedal edema Neurologic/Psychiatric: positive: Oriented x3, Other (Sensation is intact in all 4 extremities. She appears to have a slight motor deficit in her left upper extremity when compared to her right upper extremity but overall her strength is quite excellent. Her cranial nerves are grossly intact.). negative: Disoriented to person, Disoriented to place, Disoriented to time, Facial droop, Slurred/abnml speech Conclusion/Plan - Problem List (1) Stroke-like symptom Conclusion/Plan: She presents with left facial numbness and left arm numbness that is been waxing waning for the past week but is more prominent today and now there appears to be evidence of slight left upper extremity weakness. No overt deficits on exam. CT the head was unremarkable. This may potentially be to a stroke versus TIAs. I also do wonder if this may be related to her worsening renal function given her BUN is elevated in the 80s and uremia can at times present with neuropathy. For the time being we will continue her on aspirin 81 mg daily and change her statin to Lipitor 40 mg every evening. Will allow for permissive hypertension overnight and will likely resume her home antihypertensives tomorrow. Obtain MRI of the brain. Check echocardiogram and monitor on telemetry. Check A1c and lipid panel. Neurochecks. (2) Chronic renal failure Conclusion/Plan: She has advanced chronic renal failure which is thought to be secondary to either IgA nephropathy or FSGS. She had been lost to follow-up since January 17. Creatinine at that time was approximately 2.3 and today it is 5.2. It is unclear if this is acute kidney injury or worsening of her kidney disease. Her BUN is also elevated in the 80s. Her electrolytes are acceptable and her bicarbonate is slightly decreased at 18. The ER provider spoke with nephrology who recommended outpatient follow-up within the week and discontinuing her diuretic. We will hydrate her with IV fluids and recheck her renal function tomorrow morning. Avoid nephrotoxins. Qualifiers: Chronic kidney disease stage: stage 5 Qualified Code(s): N18.5 - Chronic kidney disease, stage 5 (3) Hypertension Conclusion/Plan: She is on felodipine and atenolol at home. She is currently hypertensive with systolics ranging from the 160s to 180s. We will allow for permissive hype rtension over the next 24 hours. We will resume her home antihypertensives tomorrow. (4) Type 2 diabetes mellitus treated with insulin Conclusion/Plan: Her blood glucose is 146 on admission. Her last A1c was 6% in October 2018. We will resume her home Lantus and check an A1c in the morning. Carb controlled diet. - Lab Results Lab results reviewed: Yes Fish Bones: 11/27/19 20:28 11/27/19 20:28 - Diagnostic Imaging Results Diagnostic Imaging Results: positive: Final report reviewed - EKG Results EKG Interpreted Independently: Yes EKG Comparison: No prior EKG EKG Findings: EKG shows sinus rhythm with LVH. No evidence of ischemia Core Measures - Anticipated LOS I expect patient to be DC'd or transferred within 96 hours.: Yes - Issues Hospital Issues and Management Plan: 69-year-old female with chronic kidney disease who presents with left-sided facial and arm numbness that has been waxing waning for the past week. CT of the head unremarkable. Will observe overnight for possible stroke/TIA. Will obtain MRI, echo, carotid Dopplers. Monitor on telemetry. - DVT/VTE - Prophylaxis VTE/DVT Device ordered at admit?: Yes VTE/DVT Prophylaxis med ordered at admit?: Yes
[2019-11-28] MEDS: LACTATED RINGERS 1,000 ML IV SCH ×2 (01:43→12:50)
[2019-11-28] MEDS: SODIUM CHLORIDE FLUSH 0.9% 10 ML SYRINGE IVP SCH ×2 (01:44→08:14)
[2019-11-28 06:01] LABS: BASOPHILS # (AUTO) 0.1 10^3/uL (0.0-0.1); BASOPHILS % (AUTO) 0.7 %; EOSINOPHILS # (AUTO) 0.3 10^3/uL (0.0-0.7); EOSINOPHILS % (AUTO) 3.4 %; HGB - HEMOGLOBIN 9.3 g/dL (12.0-16.0); LYMPHOCYTES # (AUTO) 2.6 10^3/uL (1.5-3.5); LYMPHOCYTES % (AUTO) 28.7 %; MEAN CORPUSCULAR HGB CONC 32.5 g/dL (32.0-36.0); MEAN CORPUSCULAR VOLUME 86.1 fL (81.0-99.0); MEAN PLATELET VOLUME 10.2 fL (7.9-10.8); MONOCYTES # (AUTO) 0.5 10^3/uL (0.0-1.0); MONOCYTES % (AUTO) 5.6 %; NEUTROPHILS # (AUTO) 5.4 10^3/uL (1.5-6.6); PLT - PLATELET COUNT 218 10^3/uL (130-450); RED BLOOD COUNT 3.32 10^6/uL (4.20-5.40); RED CELL DISTRIBUTION WIDTH 13.1 % (12.0-15.0); WHITE BLOOD COUNT 8.9 x10^3/uL (4.8-10.8)
[2019-11-28 06:15] LABS: CALCIUM 8.3 mg/dL (8.5-10.3); MAGNESIUM 2.2 mg/dL (1.7-2.8); PHOSPHORUS 4.7 mg/dL (2.5-4.6)
[2019-11-28 06:17] LABS: CHOL/HDL RATIO 5.7 (<4.4); CHOLESTEROL 188 mg/dL; HDL CHOLESTEROL 33 mg/dL; LDL CHOLESTEROL,CALCULATED 106 mg/dL; LDL/HDL RATIO 3.2 (<4.4); VLDL CHOLESTEROL 49 mg/dL
[2019-11-28 06:18] LABS: HB2 TOTAL 9.8 g/dL; HEMOGLOBIN A1C 0.4 g/dL; HEMOGLOBIN A1C % 5.9 % (4.6-6.2)
--- NOTE | 2019-11-28 07:26 | Ultrasound Report ---
PROCEDURE: Carotid Doppler Complete INDICATIONS: stroke sx TECHNIQUE: Color and pulse Doppler interrogation was performed of both carotid systems, with image documentation and velocity measurements. COMPARISON: None. FINDINGS: Right side: Brachial blood pressure: Not measured Common carotid artery peak systolic velocity: 68 cm/sec. Internal carotid artery peak systolic velocity: 135 cm/sec. Internal carotid artery end diastolic velocity: 45 cm/sec. External carotid artery peak systolic velocity: 71 cm/sec. ICA/CCA peak systolic ratio: 1.98 . Cummings scale imaging description: Calcified plaque Percent internal carotid artery stenosis: 50-69% . Vertebral artery: Flow direction is antegrade. Left side: Brachial blood pressure: Not measured Common carotid artery peak systolic velocity: 53 cm/sec. Internal carotid artery peak systolic velocity: 66 cm/sec. Internal carotid artery end diastolic velocity: 22 cm/sec. External carotid artery peak systolic velocity: 254 cm/sec. ICA/CCA peak systolic ratio: 1.24 . Cummings scale imaging description: Calcified plaque Percent internal carotid artery stenosis: Less than 50% . Vertebral artery: Flow direction is antegrade. IMPRESSION: 1. 50-69% right internal carotid artery stenosis. 2. Less than 50% left internal carotid artery stenosis. The estimate of stenosis included in the report of the imaging study was calculated using the NASCET method Reviewed by: Caryn Allen MD, PhD on 11/28/2019 7:24 AM PDT Approved by: Caryn Allen MD, PhD on 11/28/2019 7:24 AM PDT Station ID: [id number]
[2019-11-28 07:49] LABS: BILIRUBIN,URINE NEGATIVE (NEGATIVE); GLUCOSE, URINE (UA) NEGATIVE (NEGATIVE); KETONES,URINE (UA) NEGATIVE (NEGATIVE); LEUKOCYTE ESTERASE, URINE NEGATIVE (NEGATIVE); NITRITE,URINE NEGATIVE (NEGATIVE); OCCULT BLOOD,URINE TRACE-INTA (NEGATIVE); PROTEIN,URINE 100 mg/dL (NEGATIVE); UROBILINOGEN,URINE 0.2 (NORMAL) E.U./dL (NORMAL)
[2019-11-28 07:50] LABS: CLARITY,URINE CLEAR (CLEAR)
[2019-11-28 08:01] LABS: RBC,URINE 0-5 /HPF (0-5)
[2019-11-28 08:02] LABS: BACTERIA,URINE None Seen /HPF (None Seen); SQUAMOUS EPITHELIAL CELL,UR RARE Squamous (<= Few)
--- NOTE | 2019-11-28 08:05 | PHARMACY PROGRESS NOTE ---
- Best Possible Medication History Admit Date and Time: 11/27/192207 Processed by: Pharmacy Medication History completed: Yes Secondary Source(s): Physician records, Pharmacy records, Insurance records As the person ultimately responsible for medication therapy, providers are able to order a medication from an existing home medication list in [facility] via the "Reconcile Routine" prior to Confirmation of that medication by decision support manager. Such practice is discouraged except when the physician, in their clinical judgment, deems that a medical need exists for a medication without regard to previous use.
[2019-11-28] MEDS ORDERED: hydrALAZINE INJ 20 MG/ML VIAL IVP PRN (08:25)
[2019-11-28] MEDS ORDERED: cloNIDine 0.1 MG TABLET PO PRN (08:26)
[2019-11-28] MEDS ORDERED: atenoloL 25 MG TABLET PO SCH (09:00)
[2019-11-28] MEDS ORDERED: FELODIPINE ER 2.5 MG TABLET PO SCH (09:00)
[2019-11-28] MEDS ORDERED: INSULIN GLARGINE 300 UNIT/3 ML PEN SUBQ SCH ×2 (09:00)
[2019-11-28] MEDS ORDERED: HEPARIN 5,000 UNIT/ML VIAL SUBQ SCH (09:00)
[2019-11-28] MEDS ORDERED: ASPIRIN EC 81 MG TABLET PO SCH (09:00)
[2019-11-28 11:58] VITALS: BP 151/74
--- NOTE | 2019-11-28 13:16 | MRI Report ---
PROCEDURE: Brain W/O INDICATIONS: Neuro deficit. TECHNIQUE: Noncontrast axial T1 spin echo, axial T2 fast spin echo, sagittal and axial FLAIR, coronal T2 fast sp in echo, axial gradient echo, axial diffusion and ADC through the brain. COMPARISON: CT head 11/27/2019 FINDINGS: Image quality: Degraded by patient motion artifact. CSF Spaces: Basal cisterns are patent. No extra-axial fluid collections. Ventricles are normal in size and shape. Brain: No intracranial masses or hemorrhage. There is mild, diffuse cerebral volume loss. There are mild periventricular and subcortical white matter chronic microvascular ischemic changes. Cummings/white matter interface is normal. Brainstem appears normal. Diffusion-weighted images demonstrate no acut e ischemic insult. No chronic ischemic insults. Normal intravascular flow voids are present. There is a 6 mm aneurysm of the proximal basilar artery. There is a 3 mm aneurysm of the distal basilar art jeet. Skull and face: Calvarium has normal marrow signal. Orbits appear normal. Sinuses: Sinuses and mastoids are clear. IMPRESSION: 1. No acute intracranial disease process. 2. No areas of acute or chronic infarction. 3. No intracranial hemorrhage. 4. Mild, diffuse cerebral volume loss. 5. Mild periventricular and subcortical white matter chronic microvascular ischemic changes. 6. 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 Recommend CT angiogram of the head and neck for definitive characterization. Reviewed by: Caryn Allen MD, PhD on 11/28/2019 1:15 PM PDT Approved by: Caryn Allen MD, PhD on 11/28/2019 1:15 PM PDT Station ID: [id number]
--- NOTE | 2019-11-28 14:31 | Discharge Plan ---
Discharge Plan Problem Reviewed?: Yes Disposition: Home, Self Care Condition: Stable Prescriptions: Aspirin Chewable [[facility] [place] Aspirin] 81 mg PO DAILY #10 tablet Diet: Diabetic Activity Restrictions: Activity as Tolerated Shower Restrictions: No (fall precaution) Instruction Topics: TIA, Aspirin ASA chewable tablets, Kidney Failure Tx Options, Kidney Failure HC Team Health Concerns: TIA with 6mm and 3mm basilar artery aneurysms, acute on chronic kidney disease Plan of Treatment: Your left facial numbness and left upper extremity weakness are resolved. PT/OT evaluate and treated with you. Your MRI of brain show no acute intracranial disease process but with 6mm and 3mm basilar artery aneurysms, advise you followup neurologist as outpatient and good control of your blood pressure. your kidney function worsen than before but you still make good urination, Advise you closely followup your endoscopy tech Dr Woods, any efforts to make medical compliance and keep medical appointments, meanwhile keep your hydration. Care Goals: stabilization and improvement of your medical conditions Assessment: discussed with you and your about your medical conditions, you and your understood and agreed. you already made an appointment to see Dr. Woods. Additional Instructions or Follow Up instructions: You may followup with your PCP in one week, followup with your endoscopy tech as your scheduled, and followup neurologist as outpatient. Should your symptoms return or worsen, you may present ER or call 911 for help. No Smoking: If you smoke, Please STOP! Call for help. Follow-up with: Melina Miles DO [Primary Care Provider] -
--- NOTE | 2019-11-28 14:59 | DISCHARGE SUMMARY ---
Discharge Summary Admit Date: 11/27/19 Discharge Date: 11/28/19 Discharging Provider: Ghulam Mason Primary Care Provider: Dr. Mirela Miles Condition at Discharge: Stable Discharge Disposition: 01 Home, Self Care Discharge Facility Name: home - DIAGNOSES Admission Diagnoses: (1) Stroke-like symptom (2) Chronic renal failure (3) Hypertension (4) Type 2 diabetes mellitus treated with insulin Discharge Diagnoses with Status of Each Condition: (1) Stroke-like symptom resolved. pt has no more focal neurological deficit. 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 pt's declined to have angiogram because of pt's kidney issue. pt has creatinine 5.0 on today. The call was made to [place] neurologist. [place] neurologist advise pt followup neurologist and neurosurgeon closely. The neurologist also recommended pt need baby aspirin and statin. I discussed the care plan with pt and pt's . Patient's and the patient understood and state they will follow-up closely with neurologist and neurosurgeon closely. Pt has already an appointment on 12/05/2019 to see pt's PCP Dr Miles. Pt had PT/OT evaluation and treatment. PT/OT recommended pt can be d/c to home today safely. pt is prescribed baby aspirin daily. pt had home statin and will continue. Advise pt have medical compliance and a good blood pressure control with her home blood pressure medications. I called pt and pt's after pt was d/c from hospital. Pt's agreed to have MRA of brain for her although he declined to have further angiogram for her in the hospital. advised pt and her when she saw Dr. Miles, discussed with Dr. Miles to have MRA of brain to monitor her basilar artery aneurysm, and referral to neurologist and neurosurgeon to monitor. Advise pt immediately to have medical attention if she had severe headache, and other neurological symptoms. advise her to have a good blood pressure control and make medical compliance. I called Dr. Miles's office and discussed the care with Dr. Miles. Dr. Miles state she will take care of and will order MRA of brain for pt. (2) Chronic renal failure Patient has a history of chronic renal failure but the patient did not follow up with her shaft headman for about 1 year. Patient's creatinine increased, but pt's creatinine and BUN is becoming better and number becoming less in the hospital. The ER provider did speak with the on-call shaft headman who reported that the patient is a history of nephropathy and it was unclear if it was secondary to IgA nephropathy or FSGS. They recommended discontinuing the Lasix on discharge and to follow-up as soon as possible with Dr. Woods. I called 's office to make appointment for pt. Pt is scheduled to see Dr. Woods on 2:30pm 11/30/2019. I notified pt and her the appointment. Her state he will send her to see Dr. Woods on 2:30 pm on 11/30/2019. patient still make a good urine per patient report and the nurse Javon report. pt went to bathroom by herself so documentation of urine 150 cc in [employer] was no accurate at all. I personally saw pt's last urine in bathroom with good yellow color and 350 cc amount around 2:30pm. pt report she had three times of urinatio n like this on today day-time. pt's home meds Lasix was advises to be held by shaft headman in ER consultation with shaft headman, and until pt saw her PCP or shaft headman. pt has normal ECHO, done at this hospital. pt has 97% sat on room air without any respiratory distress, her lung sound is normal. pt has no lower extremities edema. pt's Lasix is hold now. pt ate 100% diet. (3) Hypertension stable, resume home blood pressure. pt's also told me pt actually took Hydralazine 10 mg daily as well but pt did not tell our pharmacy (4) Type 2 diabetes mellitus treated with insulin stable, continue home insulin regimen (5)medical noncompliance pt did not followup with her shaft headman for about one year. advise pt make medical compliance. both pt and her state they will. - HPI History of Present Illness: refer from Dr. Vann's HPI on 11/27/2019 This is a pleasant 69-year-old female with a past medical history significant for type 2 diabetes mellitus on insulin, hypertension, chronic kidney disease who presents today complaining of left-sided facial and arm numbness. She states her symptoms began about 1 week ago but initially were only lasting a few minutes at a time and have been intermittent. Today her symptoms returned and lasted for a few hours and so she sought medical attention. She also feels that today she had some left upper extremity weakness which was not present before. She states numbness in her face and arm always occur at the same time. She reports no slurred speech. She denies any weakness on the right side of her body or in her left lower extremity. She denies any history of stroke in the past. She is not on aspirin at home. Denies any history of atrial fibrillation. She reports that she currently still has ongoing symptoms although they have improved since earlier on in the day. She denies a history of migraines and reports no headache at this time. She does complain of some blurry vision which is chronic and she has cataracts. She is aware of her chronic kidney disease but she has not follow-up with her shaft headman, Dr. Woods in about 1 year. When asked as to why she did not follow-up, she could not give an explanation. In the emergency department, she was afebrile temperature of 36.5 C. Her heart rate was 57. Her blood pressure was 131/71. She was not tachypneic and saturating well on room air. Labs are significant for a white count of 13.6, a BUN of 82, and a creatinine of 5.2. CT of the head was unremarkable. The ER provider did speak with the on-call shaft headman who reported that the patient is a history of nephropathy and it was unclear if it was secondary to IgA nephropathy or FSGS. They recommended discontinuing the Lasix on discharge and to follow-up as soon as possible with Dr. Woods. The patient was administered 325 mg of aspirin in the emergency department. Given the above findings, medicine was consulted for admission. I did discuss goals of care the patient and she would like to be a full code. - HOSPITAL COURSE Hospital Course: Patient was admitted for left facial numbness and left upper extremity weakness.After the patient was admitted in the hospital, his symptoms was completely resolved by her own. Patient has no more other of focal neuro deficits. Echo and ultrasound of carotids were unremarkable. MRI of the brain show no acute stroke process. patient has 6 mm and 3 mm basilar artery aneurysm. Patient declined to have angiogram for patient in the hospital. I called [place] neurologist who recommendation patient can be D/C to home with baby aspirin and statin, and hopeful patient have a MRA to monitor patient. I called to patient after the patient was discharged from the hospital.Patient and her agreed to have MRA of the brain. Patient's report she will see her PCP Dr. Miles on December 05, 2019. I called Dr. Miles, she will schedule an MRA of the brain for patient. Patient was also found to have renal failure with creatinine 5.2. Patient has chronic renal disease and patient was follow-up by Dr. Woods. After hydration, patient's creatinine is running down. ER provider already call shaft headman, shaft headman recommended patient follow-up with Dr. Woods as soon possible. I called 's office and make appointment for patient on November 30, 2019. pt state she will see on 11/30/2019. - ALLERGIES Allergies/Adverse Reactions: Allergies Allergy/AdvReac Type Severity Reaction Status Date / Time No Known Drug Allergies Allergy Verified 11/27/19 19:15 - MEDICATIONS Home Medications: Ambulatory Orders Medication Instructions Recorded Confirmed Felodipine [Felodipine ER] 10 mg PO DAILY 11/27/19 11/27/19 Insulin Glargine [Lantus Solostar] 15 units SQ DAILY 11/27/19 11/27/19 Simvastatin 40 mg PO DAILY 11/27/19 11/27/19 atenoloL [Atenolol] 100 mg PO DAILY 11/27/19 11/27/19 Aspirin Chewable [[place] 81 mg PO DAILY #10 tablet 11/28/19 Aspirin] - PHYSICAL EXAM AT DISCHARGE General Appearance: positive: No acute distress, Alert. negative: Lethargic Eyes Bilateral: positive: Normal inspection, PERRL, No lid inflammation ENT: positive: ENT inspection nml, Pharynx nml, No signs of dehydration. negative: Purulent nasal drainage, Dry mucous membranes Neck: positive: Nml inspection, Thyroid nml, No JVD, Trachea midline. negative: Thyromegaly, Stiff neck, Tracheal deviation Respiratory: positive: Chest non-tender, No respiratory distress, Breath sounds nml. negative: Wheezes, Rales, Rhonchi Cardiovascular: positive: Regular rate & rhythm, No murmur, No gallop. negative: Irregularly irregular, Tachycardia, Bradycardia, Systolic murmur, Diastolic murmur Peripheral Pulses: positive: 2+ Abdomen: positive: Non-tender, No organomegaly, Nml bowel sounds, No distention. negative: Tenderness, Guarding, Rebound Back: positive: Nml inspection. negative: CVA tenderness (R), CVA tenderness (L) Skin: positive: Color nml, No rash, Warm, Dry. negative: Cyanosis, Diaphoresis, Pallor Extremities: positive: Non-tender, Full ROM, Nml appearance. negative: Calf tenderness, Alecia's sign/cords Neurologic/Psychiatric: positive: Oriented x3, Motor nml, Sensation nml, Mood/affect nml. negative: Weakness, Sensory loss, Facial droop, Slurred/abnml speech, Depressed mood/affect - LABS Result Diagrams: 11/28/19 05:48 11/28/19 05:48 - DIAGNOSTIC IMAGING Diagnostic Imaging Results Comments: US of carotid and ECHO are unremarkable, MRI shows no acute stroke but show 6mm and 3mm basilar artery aneurysm - FOLLOW UP Follow Up: Your left facial numbness and left upper extremity weakness are resolved. PT/OT evaluate and treated with you. Your MRI of brain show no acute intracranial disease process but with 6mm and 3mm basilar artery aneurysms, advise you followup neurologist as outpatient and good control of your blood pressure. your kidney function worsen than before but you still make good urination, A dvise you closely followup your shaft headman Dr Woods, any efforts to make medical compliance and keep medical appointments, meanwhile keep your hydration. You may followup with your PCP in one week, followup with your shaft headman as your scheduled, and followup neurologist and neurosurgeon as outpatient. Should your symptoms return or worsen, you may present ER or call 911 for help. - TIME SPENT Time Spent in Discharge (Minutes): 45
[2019-11-28] MEDS ORDERED: ATORVASTATIN 40 MG TABLET PO SCH (21:00)
== END 2019-11-28 15:23 | disposition home or self-care (01) ==
LOC: ED 18:50 → MS2 22:08
PROVIDERS: ADMIT Internal Medicine; ATTEND Nurse Practitioner Gerontology
DX: R20.0 Anesthesia of skin (principal); R53.1 Weakness; I72.5 Aneurysm of other precerebral arteries; E11.22 Type 2 diabetes mellitus with diabetic chronic kidney disease; I12.0 Hypertensive chronic kidney disease with stage 5 chronic kidney disease or end stage renal disease; N18.5 Chronic kidney disease, stage 5; Z79.4 Long term (current) use of insulin; I65.23 Occlusion and stenosis of bilateral carotid arteries; Z91.19 Patient's noncompliance with other medical treatment and regimen; E11.36 Type 2 diabetes mellitus with diabetic cataract; H26.9 Unspecified cataract
CPT/HCPCS: 36415; 70450; 70551; 71045; 80048; 80053; 80061; 81001; 83036; 83690; 83735; 84100; 84484; 85025; 93005; 93306; 93880; 96360; 96361; 96372; 97161; 97166; 99285; A9270; G0378; J1815; J7120; 81003; 83721

== ENCOUNTER 2019-11-28 07:00 | Outpatient (CLI) | payer MEDICARE, OTHER | END 2019-11-28 23:59 | disposition home or self-care (01) | LOC: LAB.R 07:00 | PROVIDERS: ATTEND Internal Medicine Nephrology | DX: N25.81 Secondary hyperparathyroidism of renal origin (principal) | CPT/HCPCS: 83970 ==

== ENCOUNTER 2019-12-08 18:05 | Outpatient (CLI) | payer MEDICARE, OTHER | END 2019-12-08 18:06 | disposition EMS.NT | LOC: EMS 18:05 | PROVIDERS: ATTEND Surgery | DX: R58 Hemorrhage, not elsewhere classified (principal) ==

== ENCOUNTER 2019-12-08 18:50 | Emergency (ER) | payer MEDICARE, OTHER ==
--- NOTE | 2019-12-08 19:44 | ED Physician Documentation ---
History of Present Illness - Stated complaint Stated Complaint: DIALYSIS PORT BLEEDING - Chief complaint Chief Complaint: General - History obtained from History obtained from: Patient - History of Present Illness Timing: Today Pain level max: 0 Pain level now: 0 - Additonal information Additional information: 69-year-old female presents to the emergency department after having a dialysis port placed in the right upper chest today at [facility]. When she got home she noticed that there was bleeding underneath the bandage. Came here for evaluation. Nothing makes it better or worse. Otherwise asymptomatic. She is not on blood thinners. Review of Systems Constitutional: denies: Fever GI: denies: Vomiting, Diarrhea Skin: denies: Rash Musculoskeletal: denies: Neck pain, Back pain PD PAST MEDICAL HISTORY - Past Medical History Cardiovascular: Hypertension, High cholesterol Respiratory: Sleep apnea Endocrine/Autoimmune: Type 2 diabetes GI: None : Renal insuffiency Psych: None Musculoskeletal: None Derm: None - Past Surgical History Past Surgical History: Yes Cardiovascular: Other HEENT: Cataracts - Present Medications Home Medications: Ambulatory Orders Medication Instructions Recorded Confirmed Felodipine [Felodipine ER] 10 mg PO DAILY 11/27/19 11/27/19 Insulin Glargine [Lantus Solostar] 15 units SQ DAILY 11/27/19 11/27/19 Simvastatin 40 mg PO DAILY 11/27/19 11/27/19 atenoloL [Atenolol] 100 mg PO DAILY 11/27/19 11/27/19 Aspirin Chewable [[place] 81 mg PO DAILY #10 tablet 11/28/19 Aspirin] - Allergies Allergies/Adverse Reactions: Allergies Allergy/AdvReac Type Severity Reaction Status Date / Time No Known Drug Allergies Allergy Verified 12/08/19 19:12 - Social History Does the pt smoke?: No Smoking Status: Never smoker Does the pt drink ETOH?: No Does the pt have substance abuse?: No - Immunizations Immunizations are current?: No - POLST Patient has POLST: No PD ED PE NORMAL - Vitals Vital signs reviewed: Yes - General General: Alert and oriented X 3, No acute distress - HEENT HEENT: Moist mucous membranes - Neck Neck: Supple, no meningeal sign - Cardiac Cardiac: RRR - Respiratory Respiratory: No respiratory distress, Clear bilaterally - Derm Derm: Warm and dry, Other (Port in the right upper chest with clotted blood.) - Neuro Neuro: Alert and oriented X 3 Results - Vitals Vitals: Vital Signs - 24 hr 12/08/19 12/08/19 19:06 21:11 Temperature 37 C Heart Rate 57 L 57 L Respiratory 16 18 Rate Blood Pressure 183/83 H 194/86 H O2 Saturation 99 100 Oxygen O2 Source Room air PD MEDICAL DECISION MAKING - ED course Complexity details: reviewed results, re-evaluated patient, considered differential, d/w patient ED course: The dressing was removed and clots were removed. Gauze was applied to the area and a weight was placed on the patient's chest. Allowed to stay for several hours. Minimal trickle of blood after removal of this gauze. A new dressing was placed. We will allow her to go home and see how she progresses overnight, if she worsens, they will return to [facility] for further evaluation as this is where the device was placed. Patient counseled regarding signs and symptoms for which I believe and urgent re-evaluation would be necessary. Patient with good understanding of and agreement to plan and is comfortable going home at this time This document was made in part using voice recognition software. While efforts are made to proofread this document, sound alike and grammatical errors may occur. Departure - Departure Disposition: 01 Home, Self Care Clinical Impression: Visit for wound check Condition: Good Instructions: ED Wound Check Post Op Bleeding Follow-Up: Melina Miles DO [Primary Care Provider] - Within 3 Days Comments: If the bleeding has not stopped by tomorrow morning, you should follow-up with [facility] for repeat evaluation. You can apply ice to the area tonight as well. Return if you worsen.
[2019-12-08 21:16] VITALS: BP 194/86
== END 2019-12-08 21:35 | disposition home or self-care (01) ==
LOC: ED 18:50
DX: T82.838A Hemorrhage due to vascular prosthetic devices, implants and grafts, initial encounter (principal); E11.22 Type 2 diabetes mellitus with diabetic chronic kidney disease; N18.6 End stage renal disease; Z79.4 Long term (current) use of insulin
CPT/HCPCS: 99281; 99282

== ENCOUNTER 2019-12-12 20:33 | Emergency (ER) | payer MEDICARE, OTHER ==
--- NOTE | 2019-12-12 20:58 | ED Physician Documentation ---
History of Present Illness - Stated complaint Stated Complaint: WEAKNESS - Chief complaint Chief Complaint: General - History obtained from History obtained from: Family (the patient is a 69 y/o f brought in by her for left arm weakness that he noticed when she woke up this morning. she is a T/TH dialysis patient and completed dialysis today. is on insulin and takes a baby asa daily.) Review of Systems Constitutional: reports: Reviewed and negative Eyes: reports: Reviewed and negative Ears: reports: Reviewed and negative Nose: reports: Reviewed and negative Throat: reports: Reviewed and negative Cardiac: reports: Reviewed and negative Respiratory: reports: Reviewed and negative GI: reports: Reviewed and negative : reports: Reviewed and negative Skin: reports: Reviewed and negative Musculoskeletal: reports: Reviewed and negative Neurologic: reports: Focal weakness Psychiatric: reports: Reviewed and negative Endocrine: reports: Reviewed and negative Immunocompromised: reports: Reviewed and negative PD PAST MEDICAL HISTORY - Past Medical History Cardiovascular: Hypertension, High cholesterol Respiratory: Sleep apnea Endocrine/Autoimmune: Type 2 diabetes GI: None : Renal insuffiency Psych: None Musculoskeletal: None Derm: None - Past Surgical History Past Surgical History: Yes Cardiovascular: Other HEENT: Cataracts - Present Medications Home Medications: Ambulatory Orders Medication Instructions Recorded Confirmed Felodipine [Felodipine ER] 10 mg PO DAILY 11/27/19 11/27/19 Insulin Glargine [Lantus Solostar] 15 units SQ DAILY 11/27/19 11/27/19 Simvastatin 40 mg PO DAILY 11/27/19 11/27/19 atenoloL [Atenolol] 100 mg PO DAILY 11/27/19 11/27/19 Aspirin Chewable [[place] 81 mg PO DAILY #10 tablet 11/28/19 Aspirin] - Allergies Allergies/Adverse Reactions: Allergies Allergy/AdvReac Type Severity Reaction Status Date / Time No Known Drug Allergies Allergy Verified 12/12/19 20:37 - Social History Does the pt smoke?: No Smoking Status: Never smoker Does the pt drink ETOH?: No Does the pt have substance abuse?: No - Immunizations Immunizations are current?: No - POLST Patient has POLST: No PD ED PE NORMAL - Vitals Vital signs reviewed: Yes - General General: Alert and oriented X 3, No acute distress - HEENT HEENT: PERRL - Neck Neck: Supple, no meningeal sign - Cardiac Cardiac: RRR, No murmur - Respiratory Respiratory: Clear bilaterally - Abdomen Abdomen: Normal bowel sounds, Soft, Non tender, Non distended - Derm Derm: Warm and dry - Extremities Extremities: No deformity - Neuro Neuro: Other (left arm weakness, decreased strength and sensation of the left upper extremity, dysarthria present.) - Psych Psych: Normal mood, Normal affect Results - Vitals Vitals: Vital Signs - 24 hr 12/12/19 20:37 Temperature 36.5 C Heart Rate 58 L Respiratory 16 Rate Blood Pressure 145/66 H O2 Saturation 98 Oxygen O2 Source Room air - EKG (time done) 01:10 Rate: Other (no stemi) - Labs Labs: Laboratory Tests 12/12/19 12/12/19 12/12/19 21:02 21:39 21:39 WBC 9.1 RBC 3.71 L Hgb 10.6 L Hct 31.6 L MCV 85.2 MCH 28.6 MCHC 33.5 RDW 12.8 Plt Count 261 MPV 9.7 Neut # (Auto) 6.8 H Lymph # (Auto) 1.4 L [place] # (Auto) 0.5 Eos # (Auto) 0.3 Baso # (Auto) 0.1 Absolute Nucleated RBC 0.00 Nucleated RBC % 0.0 PT 12.3 INR 1.1 APTT 31.5 Sodium Potassium Chloride Carbon Dioxide Anion Gap BUN Creatinine Estimated GFR (MDRD) Glucose POC Whole Bld Glucose 113 H Calcium Total Bilirubin AST ALT Alkaline Phosphatase Total Protein Albumin Globulin Albumin/Globulin Ratio Lipase 12/12/19 21:39 WBC RBC Hgb Hct MCV MCH MCHC RDW Plt Count MPV Neut # (Auto) Lymph # (Auto) [place] # (Auto) Eos # (Auto) Baso # (Auto) Absolute Nucleated RBC Nucleated RBC % PT INR APTT Sodium 132 L Potassium 3.2 L Chloride 91 L Carbon Dioxide 28 Anion Gap 13.0 BUN 22 H Creatinine 2.6 H Estimated GFR (MDRD) 18 L Glucose 116 H POC Whole Bld Glucose Calcium 8.9 Total Bilirubin 0.9 AST 13 ALT 11 Alkaline Phosphatase 62 Total Protein 8.1 Albumin 4.0 Globulin 4.1 Albumin/Globulin Ratio 1.0 Lipase 60 H PD MEDICAL DECISION MAKING - ED course Complexity details: reviewed old records, reviewed results, re-evaluated patient, considered differential (cva. attempted to get CTA of H/N however radiologist refusing becuase of labs although patient is a dialysis patient. Patient transferred to [facility] for MRI/A, Neuro consult. not a TPA candidate or neurointerventional candidate. ), d/w patient, d/w family, d/w multi site leasing consultant (dr. russell at [facility] accepts this patient. ) - Consults Consults: Consulted (name) (dr. wallace. patient will need higher level of care, patient will require dialysis.), Discussed case with (dr. russell at [facility] who agrees to accept this patient.), Request multi site leasing consultant accept pt in transfer - Critical Care Time(min): 30 Time Includes: Direct patient care, Review records, Reassess patient, Document care, Coordinate care, Medical consult, Family consult for tx dec Data interpretation: Labs, Prior EKG Procedures included in critical care time: Peripheral IV Procedures excluded from critical care time: EKG Departure - Departure Disposition: 02 Transfer Acute Care Hosp Clinical Impression: Left arm weakness CVA (cerebral vascular accident) Qualifiers: CVA mechanism: unspecified Qualified Code(s): I63.9 - Cerebral infarction, unspecified Condition: Stable
[2019-12-12] MEDS ORDERED: IOVERSOL 320 100 ML VIAL IVP ONE (21:48)
[2019-12-12 21:51] LABS: BASOPHILS # (AUTO) 0.1 10^3/uL (0.0-0.1); BASOPHILS % (AUTO) 0.7 %; EOSINOPHILS # (AUTO) 0.3 10^3/uL (0.0-0.7); EOSINOPHILS % (AUTO) 3.2 %; HGB - HEMOGLOBIN 10.6 g/dL (12.0-16.0); LYMPHOCYTES # (AUTO) 1.4 10^3/uL (1.5-3.5); LYMPHOCYTES % (AUTO) 15.5 %; MEAN CORPUSCULAR HEMOGLOBIN 28.6 pg (27.0-31.0); MEAN CORPUSCULAR HGB CONC 33.5 g/dL (32.0-36.0); MEAN CORPUSCULAR VOLUME 85.2 fL (81.0-99.0); MEAN PLATELET VOLUME 9.7 fL (7.9-10.8); MONOCYTES # (AUTO) 0.5 10^3/uL (0.0-1.0); MONOCYTES % (AUTO) 5.5 %; NEUTROPHILS # (AUTO) 6.8 10^3/uL (1.5-6.6); NEUTROPHILS % (AUTO) 74.4 %; PLT - PLATELET COUNT 261 10^3/uL (130-450); RED BLOOD COUNT 3.71 10^6/uL (4.20-5.40); RED CELL DISTRIBUTION WIDTH 12.8 % (12.0-15.0); WHITE BLOOD COUNT 9.1 x10^3/uL (4.8-10.8)
[2019-12-12 21:56] LABS: INR 1.1 (0.8-1.2); PT - PROTHROMBIN TIME 12.3 secs (9.9-12.6)
[2019-12-12 22:04] LABS: PARTIAL THROMBOPLASTIN TIME 31.5 secs (24.9-33.3)
[2019-12-12 22:07] LABS: BILIRUBIN,TOTAL 0.9 mg/dL (0.2-1.0); CALCIUM 8.9 mg/dL (8.5-10.3); CREATININE 2.6 mg/dL (0.4-1.0); TOTAL PROTEIN 8.1 g/dL (6.7-8.2)
[2019-12-12] MEDS ORDERED: MORPHINE 2 MG/ML CARPUJECT IVP STA (22:26)
[2019-12-12] MEDS ORDERED: ONDANSETRON 4 MG/2 ML VIAL IVP STA (22:26)
[2019-12-13 01:42] VITALS: BP 135/85
--- NOTE | 2019-12-13 07:13 | CT Report ---
PROCEDURE: HEAD WO INDICATIONS: left arm weakness TECHNIQUE: Noncontrast 4.5 mm thick angled axial sections acquired from the foramen magnum to the vertex. For r adiation dose reduction, the following was used: automated exposure control, adjustment of mA and/or kV according to patient size. COMPARISON: Brain MRI 11/28/[address] head 11/27/2019. FINDINGS: Image quality: Excellent. CSF spaces: Basal cisterns are patent. No extra-axial fluid collections. Ventricles are normal in size and shape. Brain: No midline shift. No intracranial masses or hemorrhage. Cummings-white matter interface is norm al. Skull and face: Calvarium and visualized facial bones are intact, without suspicious lesions. Sinuses: Visualized sinuses and mastoids are clear. IMPRESSION: No acute intracranial disease process. Reviewed by: Caryn Allen MD, PhD on 12/13/2019 7:12 AM PDT Approved by: Caryn Allen MD, PhD on 12/13/2019 7:12 AM PDT Station ID: [id number]
== END 2019-12-13 02:55 | disposition short-term general hospital (02) ==
LOC: ED 20:33
DX: I63.9 Cerebral infarction, unspecified (principal); R29.898 Other symptoms and signs involving the musculoskeletal system; R47.1 Dysarthria and anarthria; I49.3 Ventricular premature depolarization; I44.0 Atrioventricular block, first degree; N28.9 Disorder of kidney and ureter, unspecified; Z99.2 Dependence on renal dialysis; I10 Essential (primary) hypertension; E11.9 Type 2 diabetes mellitus without complications; Z79.4 Long term (current) use of insulin; Z79.82 Long term (current) use of aspirin
CPT/HCPCS: 36415; 70450; 80053; 83690; 85025; 85610; 85730; 93005; 96374; 96375; 99291

== ENCOUNTER 2020-01-09 14:48 | Outpatient (CLI) | payer MEDICARE, OTHER | END 2020-01-09 14:49 | disposition critical access hospital (66) | LOC: EMS 14:48 | PROVIDERS: ATTEND Surgery | DX: R46.4 Slowness and poor responsiveness (principal); R11.10 Vomiting, unspecified ==

== ENCOUNTER 2020-01-09 21:04 | Outpatient (CLI) | payer MEDICARE, OTHER | END 2020-01-09 21:05 | disposition short-term general hospital (02) | LOC: EMS 21:04 | PROVIDERS: ATTEND Surgery | DX: R90.89 Other abnormal findings on diagnostic imaging of central nervous system (principal); R41.82 Altered mental status, unspecified | CPT/HCPCS: A0425; A0426; A0429 ==

== ENCOUNTER 2020-02-10 08:00 | Outpatient (CLI) | payer MEDICARE, OTHER ==
[2020-02-10 13:08] LABS: BASOPHILS # (AUTO) 0.1 10^3/uL (0.0-0.1); BASOPHILS % (AUTO) 0.9 %; EOSINOPHILS # (AUTO) 0.8 10^3/uL (0.0-0.7); EOSINOPHILS % (AUTO) 13.6 %; HGB - HEMOGLOBIN 7.8 g/dL (12.0-16.0); LYMPHOCYTES # (AUTO) 1.1 10^3/uL (1.5-3.5); LYMPHOCYTES % (AUTO) 19.1 %; MEAN CORPUSCULAR HEMOGLOBIN 29.1 pg (27.0-31.0); MEAN CORPUSCULAR HGB CONC 31.3 g/dL (32.0-36.0); MEAN CORPUSCULAR VOLUME 92.9 fL (81.0-99.0); MEAN PLATELET VOLUME 10.6 fL (7.9-10.8); MONOCYTES # (AUTO) 0.4 10^3/uL (0.0-1.0); MONOCYTES % (AUTO) 6.5 %; NEUTROPHILS # (AUTO) 3.5 10^3/uL (1.5-6.6); NEUTROPHILS % (AUTO) 59.6 %; PLT - PLATELET COUNT 309 10^3/uL (130-450); RED BLOOD COUNT 2.68 10^6/uL (4.20-5.40); RED CELL DISTRIBUTION WIDTH 14.5 % (12.0-15.0); WHITE BLOOD COUNT 5.9 x10^3/uL (4.8-10.8)
[2020-02-10 13:17] LABS: CREATININE 5.9 mg/dL (0.4-1.0); MAGNESIUM 2.4 mg/dL (1.7-2.8); PHOSPHORUS 4.8 mg/dL (2.5-4.6)
== END 2020-02-10 23:59 | disposition home or self-care (01) ==
LOC: LAB.R 08:00
PROVIDERS: ATTEND Family Medicine
DX: N18.6 End stage renal disease (principal)
CPT/HCPCS: 36415; 80048; 83735; 84100; 85025

== ENCOUNTER 2020-03-07 20:20 | Outpatient (CLI) | payer MEDICARE, OTHER | END 2020-03-07 20:21 | disposition critical access hospital (66) | LOC: EMS 20:20 | PROVIDERS: ATTEND Surgery | DX: R07.9 Chest pain, unspecified (principal); R11.10 Vomiting, unspecified | CPT/HCPCS: A0425; A0429 ==

== ENCOUNTER 2020-03-07 20:26 | Emergency (ER) | payer MEDICARE, OTHER ==
--- NOTE | 2020-03-07 20:47 | ED Physician Documentation ---
History of Present Illness - Stated complaint Stated Complaint: CP, N/V - Chief complaint Chief Complaint: Abd Pain - History obtained from History obtained from: Patient, Family - Additonal information Additional information: Patient is a 70-year-old female brought in from [facility] for chest pain and shortness of breath she had a previous stroke that left her with chronic left-sided deficits and also reports that she has a peritoneal dialysis catheter but it has not been being used. The majority of the history is obtained from the patient's , As the patient has chronic aphasia from her stroke. Review of Systems Unable to obtain: Confused PD PAST MEDICAL HISTORY - Past Medical History Cardiovascular: Hypertension, High cholesterol Respiratory: Sleep apnea Neuro: CVA (about a month ago) Endocrine/Autoimmune: Type 2 diabetes GI: None : Renal insuffiency Psych: None Musculoskeletal: None Derm: None - Past Surgical History Past Surgical History: Yes Cardiovascular: Other HEENT: Cataracts - Present Medications Home Medications: Ambulatory Orders Medication Instructions Recorded Confirmed Insulin Glargine [Lantus Solostar] 15 units SQ DAILY 11/27/19 03/07/20 Aspirin Chewable [[place] 81 mg PO DAILY #10 tablet 11/28/19 03/07/20 Aspirin] Acetaminophen [Tylenol] 650 mg PO QID PRN 03/07/20 03/07/20 Apixaban [Eliquis] 2.5 mg PO BID 03/07/20 03/07/20 Atorvastatin Calcium 80 mg PO DAILY PM 03/07/20 03/07/20 Citalopram Hydrobromide 10 mg PO DAILY PRN 03/07/20 03/07/20 [Citalopram HBr] Clopidogrel [Plavix] 75 mg PO DAILY 03/07/20 03/07/20 Ferrous Sulfate 325 mg PO DAILY 03/07/20 03/07/20 Fludrocortisone Acetate 0.1 mg PO DAILY 03/07/20 03/07/20 Gabapentin 100 mg PO DAILY PM 03/07/20 03/07/20 Hydralazine HCl 25 mg PO Q6HR PRN 03/07/20 03/07/20 Lidocaine Patch 5% [Lidoderm Patch] 1 patch TOP DAILY 03/07/20 03/07/20 Metoprolol Tartrate 0.5 tab PO BID 03/07/20 03/07/20 Midodrine HCl 5 mg PO QID 03/07/20 03/07/20 Nitroglycerin 0.4 mg SL Q5MIN PRN 03/07/20 03/07/20 Ondansetron [Ondansetron Odt] 4 mg PO Q8HR 03/07/20 03/07/20 Potassium Chloride 10 meq PO BID 03/07/20 03/07/20 Sennosides/Docusate Sodium 8.6 mg PO BID 03/07/20 03/07/20 [Docuzen Tablet] Sodium Bicarbonate 650 mg PO DAILY 03/07/20 03/07/20 - Allergies Allergies/Adverse Reactions: Allergies Allergy/AdvReac Type Severity Reaction Status Date / Time No Known Drug Allergies Allergy Verified 03/07/20 20:36 - Social History Does the pt smoke?: No Smoking Status: Never smoker Does the pt drink ETOH?: No Does the pt have substance abuse?: No - Immunizations Immunizations are current?: No - POLST Patient has POLST: No PD ED PE NORMAL - Vitals Vital signs reviewed: Yes - General General: No acute distress, Other (Patient is a phasic obvious chronic left- sided deficits from previous stroke) - HEENT HEENT: PERRL - Neck Neck: Supple, no meningeal sign - Cardiac Cardiac: No murmur, Other (Tachycardic and regular rhythm diffuse crackles in bilateral lung benz) - Respiratory Respiratory: No respiratory distress, Other (Trachea midline breath sounds are present no use of accessory muscles breath sounds present bilateral lung benz diffuse crackles in bilateral lung benz throughout worse at the bases) - Abdomen Abdomen: Normal bowel sounds, Soft, Non tender, Non distended, Other (Peritoneal dialysis catheter in place with no signs of infection no swelling no midline abdominal pulsatile mass normoactive bowel sounds no guarding no rebound or hepatosplenomegaly no CVA tenderness) - Back Back: No CVA TTP, No spinal TTP - Derm Derm: Normal color, Warm and dry, No rash - Extremities Extremities: Other (Chronic contracture of left upper extremity no gross deformity of bilateral lower leg) - Neuro Neuro: Other (Chronic upper and lower extremity left-sided deficits with some mild left-sided hemineglect she is aphasic) - Psych Psych: Normal mood, Normal affect Results - Vitals Vitals: Vital Signs - 24 hr 03/07/20 03/07/20 03/07/20 20:30 21:06 21:09 Temperature 36.7 C Heart Rate 116 H 112 H Respiratory 18 Rate Blood Pressure 190/113 H 189/111 H O2 Saturation 98 97 03/07/20 03/07/20 03/07/20 21:24 21:52 22:18 Temperature Heart Rate 111 H 103 H Respiratory 16 13 15 Rate Blood Pressure 179/109 H 178/105 H O2 Saturation 98 94 03/07/20 03/07/20 03/08/20 23:05 23:59 00:10 Temperature 36.0 C L Heart Rate 98 98 102 H Respiratory 16 14 14 Rate Blood Pressure 170/101 H 181/108 H O2 Saturation 95 96 Oxygen O2 Source Room air - EKG (time done) 20:29 Rate: Other (no stemi) - Labs Labs: Laboratory Tests 03/07/20 03/07/20 03/07/20 20:50 20:50 20:50 WBC 7.1 RBC 2.56 L Hgb 7.5 L Hct 24.1 L MCV 94.1 MCH 29.3 MCHC 31.1 L RDW 15.6 H Plt Count 268 MPV 10.4 Neut # (Auto) 5.4 Lymph # (Auto) 1.0 L [place] # (Auto) 0.4 Eos # (Auto) 0.2 Baso # (Auto) 0.1 Absolute Nucleated RBC 0.00 Nucleated RBC % 0.0 Sodium 141 Potassium 4.3 Chloride 102 Carbon Dioxide 24 Anion Gap 15.0 H BUN 39 H Creatinine 5.4 H Estimated GFR (MDRD) 8 L Glucose 153 H Lactic Acid Calcium 9.4 Phosphorus Magnesium Total Bilirubin 0.9 AST 16 ALT < 10 L Alkaline Phosphatase 82 Troponin I High Sens 111.3 H* B-Natriuretic Peptide Total Protein 7.7 Albumin 3.8 Globulin 3.9 Albumin/Globulin Ratio 1.0 Lipase 58 H 03/07/20 03/07/20 03/07/20 20:50 20:50 20:50 WBC RBC Hgb Hct MCV MCH MCHC RDW Plt Count MPV Neut # (Auto) Lymph # (Auto) [place] # (Auto) Eos # (Auto) Baso # (Auto) Absolute Nucleated RBC Nucleated RBC % Sodium Potassium Chloride Carbon Dioxide Anion Gap BUN Creatinine Estimated GFR (MDRD) Glucose Lactic Acid 2.1 Calcium Phosphorus 4.0 Magnesium 2.1 Total Bilirubin AST ALT Alkaline Phosphatase Troponin I High Sens B-Natriuretic Peptide 3007 H Total Protein Albumin Globulin Albumin/Globulin Ratio Lipase PD MEDICAL DECISION MAKING - ED course Complexity details: reviewed old records, reviewed results, re-evaluated patient, considered differential, d/w patient, d/w family, d/w hr consultant ED course: 70 old your old female with previous stroke that has left her with left sided deficits and kidney failure. she is supposed to be on dialysis but has not been receiving dialysis. she has a peritoneal dialysis catheter but is not currently undergoing treatment. she is at [facility] and was sent in by ambulance for cp/sob. patient unable to communicate because of aphasia from prior stroke. patient is here with and the is able to provide limited history. remainder of the history is unknown other than that patient has received the majority of her care at [facility]. her workup here today is concerning for CHF/pulmonary edema, pneumonia, kidney failure, elevated troponin. will need to transfer to a higher level of care for cardiology and nephrology consultation. Attempted multiple times to transfer this patient to [facility] as well as [facility], both of them state they do not have any beds available and will not accept transfer for this patient I did speak to Dr. buitrago at [facility] in [place] has agreed to accept this patient. Patient and family are agreeable to this plan. - Consults Consults: Discussed case with (dr. buitrago, Specialist at [facility] in [place] has agreed to accept this patient) - Critical Care Time(min): 30 Time Includes: Direct patient care, Review records, Reassess patient, Document care, Coordinate care, Medical consult, Family consult for tx dec Data interpretation: Labs, CXR, Prior EKG Procedures included in critical care time: Peripheral IV Procedures excluded from critical care time: EKG Departure - Departure Disposition: 02 Transfer Acute Care Hosp Clinical Impression: Pneumonia Qualifiers: Pneumonia type: due to unspecified organism Laterality: right Lung location: unspecified part of lung Qualified Code(s): J18.9 - Pneumonia, unspecified organism Kidney failure Qualifiers: Renal failure chronicity: acute on chronic Acute renal failure type: unspecified Chronic kidney disease stage: unspecified stage Qualified Code(s): N17.9 - Acute kidney failure, unspecified Pulmonary edema Qualifiers: Chronicity: acute Qualified Code(s): J81.0 - Acute pulmonary edema Condition: Stable
[2020-03-07] MEDS ORDERED: MORPHINE 2 MG/ML CARPUJECT IVP STA (20:54)
[2020-03-07] MEDS ORDERED: ONDANSETRON 4 MG/2 ML VIAL IVP STA (20:54)
[2020-03-07] MEDS ORDERED: ASPIRIN 325 MG TABLET PO STA (20:54)
[2020-03-07 20:57] LABS: BASOPHILS # (AUTO) 0.1 10^3/uL (0.0-0.1); EOSINOPHILS # (AUTO) 0.2 10^3/uL (0.0-0.7); EOSINOPHILS % (AUTO) 2.7 %; HGB - HEMOGLOBIN 7.5 g/dL (12.0-16.0); LYMPHOCYTES % (AUTO) 14.1 %; MEAN CORPUSCULAR HEMOGLOBIN 29.3 pg (27.0-31.0); MEAN CORPUSCULAR HGB CONC 31.1 g/dL (32.0-36.0); MEAN CORPUSCULAR VOLUME 94.1 fL (81.0-99.0); MEAN PLATELET VOLUME 10.4 fL (7.9-10.8); MONOCYTES # (AUTO) 0.4 10^3/uL (0.0-1.0); MONOCYTES % (AUTO) 6.1 %; NEUTROPHILS # (AUTO) 5.4 10^3/uL (1.5-6.6); NEUTROPHILS % (AUTO) 75.5 %; PLT - PLATELET COUNT 268 10^3/uL (130-450); RED BLOOD COUNT 2.56 10^6/uL (4.20-5.40); RED CELL DISTRIBUTION WIDTH 15.6 % (12.0-15.0); WHITE BLOOD COUNT 7.1 x10^3/uL (4.8-10.8)
[2020-03-07 21:12] LABS: ALBUMIN 3.8 g/dL (3.2-5.5); ALKALINE PHOSPHATASE 82 IU/L (42-121); ALT ALANINE AMINOTRANSFERASE < 10 IU/L (10-60); AST ASPARTATE AMINOTRANSFERASE 16 IU/L (10-42); BILIRUBIN,TOTAL 0.9 mg/dL (0.2-1.0); BUN - BLOOD UREA NITROGEN 39 mg/dL (6-20); CALCIUM 9.4 mg/dL (8.5-10.3); CARBON DIOXIDE - CO2 24 mmol/L (21-32); CHLORIDE 102 mmol/L (101-111); CREATININE 5.4 mg/dL (0.4-1.0); GLUCOSE 153 mg/dL (70-100); LIPASE 58 U/L (22-51); SODIUM 141 mmol/L (135-145); TOTAL PROTEIN 7.7 g/dL (6.7-8.2)
[2020-03-07 21:14] LABS: MAGNESIUM 2.1 mg/dL (1.7-2.8)
[2020-03-07] MEDS ORDERED: cefTRIAXone 1 GM VIAL IVP STA (21:42)
--- NOTE | 2020-03-07 21:43 | XRAY Report ---
PROCEDURE: Chest 1 View X-Ray INDICATIONS: Chest pain TECHNIQUE: One view of the chest was acquired. COMPARISON: 01/09/2020 FINDINGS: Surgical changes and devices: A vascular stent projects over the midline lower neck.. There is been interval removal of a right IJ dialysis catheter. Lungs and pleura: Diffuse interstitial prominence. Hazy alveolar opacity in the right lower lung may be accentuated by overlying soft tissue. No pneumothorax. Mediastinum: Mediastinal contours appear normal. The central vasculature is indistinct. Heart size i s enlarged, stable. Bones and chest wall: No suspicious bony lesions. Overlying soft tissues appear unremarkable. IMPRESSION: 1. Findings suggestive of interstitial and alveolar edema. This may be accentuated by overlying soft tissue densities. 2. Stable cardiomegaly with mild central vascular congestion. 3. Interval removal of dialysis catheter. Reviewed by: Dottie Sanderson MD on 03/07/2020 9:42 PM PDT Approved by: Dottie Sanderson MD on 03/07/2020 9:42 PM PDT Station ID: [id number]
[2020-03-08] MEDS ORDERED: FUROSEMIDE 40 MG/4 ML VIAL IVP STA
[2020-03-08 01:17] VITALS: BP 176/102
== END 2020-03-08 01:40 | disposition short-term general hospital (02) ==
LOC: EDUNIT# → ED 20:26
DX: J18.9 Pneumonia, unspecified organism (principal); J81.0 Acute pulmonary edema; N17.9 Acute kidney failure, unspecified; N18.9 Chronic kidney disease, unspecified; I12.9 Hypertensive chronic kidney disease with stage 1 through stage 4 chronic kidney disease, or unspecified chronic kidney disease; E11.22 Type 2 diabetes mellitus with diabetic chronic kidney disease; Z79.4 Long term (current) use of insulin; R79.89 Other specified abnormal findings of blood chemistry; R00.0 Tachycardia, unspecified; R94.31 Abnormal electrocardiogram [ECG] [EKG]; I69.354 Hemiplegia and hemiparesis following cerebral infarction affecting left non-dominant side; I69.320 Aphasia following cerebral infarction; Z79.01 Long term (current) use of anticoagulants; Z79.02 Long term (current) use of antithrombotics/antiplatelets; Z79.82 Long term (current) use of aspirin
CPT/HCPCS: 36415; 71045; 80053; 83605; 83690; 83735; 83880; 84100; 84484; 85025; 87040; 93005; 96374; 96375; 99291

== ENCOUNTER 2020-03-08 01:45 | Outpatient (CLI) | payer MEDICARE, OTHER | END 2020-03-08 01:46 | disposition short-term general hospital (02) | LOC: EMS 01:45 | PROVIDERS: ATTEND Surgery | DX: R07.9 Chest pain, unspecified (principal); R11.0 Nausea; J18.9 Pneumonia, unspecified organism; N19 Unspecified kidney failure | CPT/HCPCS: A0425; A0428 ==

== ENCOUNTER 2020-03-25 15:44 | Outpatient (CLI) | payer MEDICARE, OTHER | END 2020-03-25 15:45 | disposition short-term general hospital (02) | LOC: EMS 15:44 | PROVIDERS: ATTEND Surgery | DX: R55 Syncope and collapse (principal) | CPT/HCPCS: A0425; A0427 ==

== ENCOUNTER 2020-05-16 | Outpatient (CLI) | payer MEDICARE, OTHER | END 2020-05-16 00:01 | disposition short-term general hospital (02) | LOC: EMS | PROVIDERS: ATTEND Surgery | DX: R11.10 Vomiting, unspecified (principal); R50.9 Fever, unspecified; R53.83 Other fatigue | CPT/HCPCS: A0425; A0427 ==

== ENCOUNTER 2020-06-15 08:16 | Outpatient (CLI) | payer MEDICARE, OTHER | END 2020-06-15 08:17 | disposition critical access hospital (66) | LOC: EMS 08:16 | PROVIDERS: ATTEND Surgery | DX: Z76.89 Persons encountering health services in other specified circumstances (principal) | CPT/HCPCS: A0425; A0429 ==

== ENCOUNTER 2020-06-15 08:26 | Emergency (ER) | payer MEDICARE, OTHER ==
--- NOTE | 2020-06-15 08:58 | ED Physician Documentation ---
History of Present Illness - Stated complaint Stated Complaint: LABS - Chief complaint Chief Complaint: General - History obtained from History obtained from: Patient, EMS, Other (TRACY Funes at [facility] in [place]) - Additonal information Additional information: 70-year-old woman with end-stage renal disease on hemodialysis with recent [place] infection 1 month ago presents from [facility] with request for blood cultures from her udall site. Per TRACY Funes at [facility], patient was supposed to get HD yesterday but her BP was 130 systolic which is lower than her usual, so they held off and requested she have blood cultures drawn to make sure she does not have a new infection. Patient denies pain or drainage at the site, fever/chills or other symptoms. 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 : Renal insuffiency HEENT: None Psych: None Musculoskeletal: None Derm: None - Past Surgical History Past Surgical History: Yes Cardiovascular: Other HEENT: Cataracts - Present Medications Home Medications: Ambulatory Orders Medication Instructions Recorded Confirmed Aspirin Chewable [[place] 81 mg PO DAILY #10 tablet 11/28/19 06/15/20 Aspirin] Acetaminophen [Tylenol] 650 mg PO QID PRN 03/07/20 06/15/20 Apixaban [Eliquis] 2.5 mg PO BID 03/07/20 06/15/20 Atorvastatin Calcium 80 mg PO DAILY PM 03/07/20 06/15/20 Citalopram Hydrobromide 10 mg PO DAILY PRN 03/07/20 06/15/20 [Citalopram HBr] Clopidogrel [Plavix] 75 mg PO DAILY 03/07/20 06/15/20 Gabapentin 100 mg PO DAILY PM 03/07/20 06/15/20 Hydralazine HCl 25 mg PO Q6HR PRN 03/07/20 06/15/20 Metoprolol Tartrate 0.5 tab PO BID 03/07/20 06/15/20 Midodrine HCl 5 mg PO QID 03/07/20 06/15/20 Ondansetron [Ondansetron Odt] 4 mg PO Q8HR 03/07/20 06/15/20 Potassium Chloride 10 meq PO BID 03/07/20 06/15/20 Pantoprazole [Protonix] 1 tab PO DAILY 06/15/20 06/15/20 - Allergies Allergies/Adverse Reactions: Allergies Allergy/AdvReac Type Severity Reaction Status Date / Time No Known Drug Allergies Allergy Verified 06/15/20 08:39 - Social History Does the pt smoke?: No Smoking Status: Never smoker Does the pt drink ETOH?: No Does the pt have substance abuse?: No - Immunizations Immunizations are current?: No - POLST Patient has POLST: No PD ED PE NORMAL - Vitals Vital signs reviewed: Yes - General General: No acute distress, Other (elderly woman, alert and interactive) - HEENT HEENT: Atraumatic, PERRL, EOMI - Neck Neck: Supple, no meningeal sign, Other (R subclavian udall clean with dressing in place. nontender to palpation. mild clear crusting around site. no purulent drainage. ) - Cardiac Cardiac: RRR - Respiratory Respiratory: No respiratory distress, Clear bilaterally - Abdomen Abdomen: Non tender, Non distended - Derm Derm: Normal color - Extremities Extremities: No deformity Results - Vitals Vitals: Vital Signs - 24 hr 06/15/20 08:34 Temperature 36 C L Heart Rate 86 Respiratory 18 Rate Blood Pressure 188/86 H O2 Saturation 98 Oxygen O2 Source Room air PD MEDICAL DECISION MAKING - ED course ED course: 70-year-old woman presented for medical screening evaluation and blood culture draw. Low suspicion for infection at this time. Patient will be discharged home to [facility]. They will coordinate hemodialysis and will have her follow-up with her primary doctor for blood culture results. Return precautions given Departure - Departure Disposition: Home, Self Care Clinical Impression: Encounter for medical screening examination Condition: Good Instructions: ED Screening Exam Medical Nonurgent Comments: You were seen in the emergency department for a medical screening exam. Your hemodialysis staff yesterday found that your blood pressure was a little bit lower than usual, and wanted to make sure that you do not have an infection in your dialysis catheter. 2 blood cultures were drawn in the emergency department. Your doctor will need to call to obtain the results. Return to the ED if you develop any new symptoms or have other concerns. Follow up at [facility] to coordinate your dialysis.
[2020-06-15 09:46] VITALS: BP 183/77
== END 2020-06-15 10:24 | disposition home or self-care (01) ==
LOC: EDUNIT# → ED 08:26
DX: Z76.89 Persons encountering health services in other specified circumstances (principal)
CPT/HCPCS: 87040; 87150; 99282; 99283

== ENCOUNTER 2020-06-15 10:34 | Outpatient (CLI) | payer MEDICARE, OTHER | END 2020-06-15 10:35 | disposition home or self-care (01) | LOC: EMS 10:34 | PROVIDERS: ATTEND Surgery | DX: I69.351 Hemiplegia and hemiparesis following cerebral infarction affecting right dominant side (principal); Z74.01 Bed confinement status ==

== ENCOUNTER 2020-06-15 14:58 | Outpatient (CLI) | payer MEDICARE, OTHER | END 2020-06-15 14:59 | disposition critical access hospital (66) | LOC: EMS 14:58 | PROVIDERS: ATTEND Surgery | DX: Z76.89 Persons encountering health services in other specified circumstances (principal) ==

== ENCOUNTER 2020-06-15 15:05 | Emergency (ER) | payer MEDICARE, OTHER ==
--- NOTE | 2020-06-15 14:51 | ED Physician Documentation ---
History of Present Illness - Stated complaint Stated Complaint: PORT FLUSH - History obtained from History obtained from: Other (TRACY Kellogg at [facility]) - Additonal information Additional information: Patient was brought back to the emergency department in order to flush her hemodialysis catheter site since she will not be getting dialysis today and it was accessed for blood cultures earlier today. No other issues at this time. Review of Systems Constitutional: denies: Fever PD ED PE NORMAL - Vitals Vital signs reviewed: Yes - General General: Alert and oriented X 3 - HEENT HEENT: Atraumatic - Neck Neck: Supple, no meningeal sign - Cardiac Cardiac: Other (R subclavian HD central line in place) - Neuro Neuro: Alert and oriented X 3 - Psych Psych: Normal mood, Normal affect PD MEDICAL DECISION MAKING - ED course ED course: I called the senior living after the patient was discharged and requested that a heparin flush be placed through the central venous line that we thuy blood cultures from. Because Chan is unable to do the flush at the facility and she is not getting HD till wednesday, she was brought back in for heparin flush. no other issues at this time. Departure - Departure Disposition: Home, Self Care Clinical Impression: Encounter for medical screening examination Condition: Good Comments: 500 units of heparin flush with inserted into the venous port of your dialysis catheter for maintenance of the lumen. Please follow-up for hemodialysis on Wednesday.
[2020-06-15 15:14] VITALS: BP 164/81
== END 2020-06-15 15:28 | disposition home or self-care (01) ==
LOC: EDUNIT# → ED 15:05
DX: Z49.01 Encounter for fitting and adjustment of extracorporeal dialysis catheter (principal); N18.9 Chronic kidney disease, unspecified; N18.6 End stage renal disease
CPT/HCPCS: 87040; 87150; 96374; 99282; 99283

== ENCOUNTER 2020-06-15 15:33 | Outpatient (CLI) | payer MEDICARE, OTHER | END 2020-06-15 15:34 | disposition home or self-care (01) | LOC: EMS 15:33 | PROVIDERS: ATTEND Surgery | DX: Z74.01 Bed confinement status (principal); I69.351 Hemiplegia and hemiparesis following cerebral infarction affecting right dominant side; Z76.89 Persons encountering health services in other specified circumstances | CPT/HCPCS: A0425; A0428; A0429 ==

== ENCOUNTER 2020-06-17 18:00 | Outpatient (CLI) | payer MEDICARE, OTHER | END 2020-06-17 18:01 | disposition short-term general hospital (02) | LOC: EMS 18:00 | PROVIDERS: ATTEND Surgery | DX: Z74.01 Bed confinement status (principal) | CPT/HCPCS: A0425; A0429 ==

== ENCOUNTER 2020-07-02 16:30 | Outpatient (CLI) | payer MEDICARE, OTHER | END 2020-07-02 16:31 | disposition short-term general hospital (02) | LOC: EMS 16:30 | PROVIDERS: ATTEND Surgery | DX: D58.2 Other hemoglobinopathies (principal) | CPT/HCPCS: A0425; A0429 ==

== ENCOUNTER → 2021-01-29 | Outpatient (CLI) | payer MEDICARE, OTHER | END | disposition short-term general hospital (02) | LOC: EMS 10:17 | DX: R41.82 Altered mental status, unspecified (principal) | CPT/HCPCS: A0425; A0429 ==

== ENCOUNTER 2021-05-14 15:18 | Outpatient (CLI) | payer MEDICARE, OTHER | END 2021-05-14 15:19 | disposition short-term general hospital (02) | LOC: EMS 15:18 | DX: T85.898A Other specified complication of other internal prosthetic devices, implants and grafts, initial encounter (principal) | CPT/HCPCS: A0425; A0429 ==

== ENCOUNTER 2021-06-10 14:37 | Outpatient (CLI) | payer MEDICARE, OTHER | END 2021-06-10 14:38 | disposition home or self-care (01) | LOC: LAB.R 14:37 | DX: T80.219A Unspecified infection due to central venous catheter, initial encounter (principal) | CPT/HCPCS: 87070; 87077; 87181; 87205 ==

== ENCOUNTER 2021-07-29 13:38 | Outpatient (CLI) | payer MEDICARE, OTHER ==
--- NOTE | 2021-07-29 15:43 | XRAY Report ---
PROCEDURE: Shoulder 2 View LT INDICATIONS: LT SHOULDER PAIN TECHNIQUE: 2 views of the shoulder were acquired. COMPARISON: None. FINDINGS: Bones: There is prominent inferior subluxation/borderline dislocation of the humerus at the glenohume ral joint space. No visualized fracture. No suspicious bony lesions. Visualized ribs appear intact. Severe acromioclavicular degenerative narrowing. Soft tissues: No suspicious soft tissue calcifications. IMPRESSION: Prominent inferior subluxation with borderline anterior dislocation of the left shoulder . Full x-ray shoulder views as well as clinical correlation is recommended. Reviewed by: Chantal Fletcher MD on 07/29/2021 3:41 PM PST Approved by: Chantal Fletcher MD on 07/29/2021 3:41 PM PST Station ID: [id number]
== END 2021-07-29 13:39 | disposition home or self-care (01) ==
LOC: DI 13:38
PROVIDERS: ATTEND Hospitalist
DX: S43.032A Inferior subluxation of left humerus, initial encounter (principal)

== ENCOUNTER 2021-07-30 14:28 | Emergency (ER) | payer MEDICARE, OTHER ==
[2021-07-30] MEDS ORDERED: SODIUM CHLORIDE 0.9% 1,000 ML IV STA (14:58)
[2021-07-30] MEDS ORDERED: PROPOFOL 200 MG/20 ML VIAL IVP STA (14:58)
--- NOTE | 2021-07-30 15:59 | ED Physician Documentation ---
History of Present Illness - Stated complaint Stated Complaint: LEFT SHOULDER PX - Chief complaint Chief Complaint: Ext Problem - History obtained from History obtained from: Patient, Family - History of Present Illness Timing: Other (3 months) Pain level max: 7 Pain level now: 7 - Additonal information Additional information: Patient is a 71-year-old female with complaint of left shoulder pain for the past 4 to 5 months. She had a stroke about a year and a half ago and has been paralyzed in the left arm. Had an x-ray yesterday which showed a subluxation versus dislocation. Sent here for evaluation. No current complaints. The states he thinks she fell in March. 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 : Renal insuffiency HEENT: None Psych: None Musculoskeletal: None Derm: None - Past Surgical History Past Surgical History: Yes Cardiovascular: Other HEENT: Cataracts - Present Medications Home Medications: Ambulatory Orders Medication Instructions Recorded Confirmed Aspirin Chewable [[place] 81 mg PO DAILY #10 tablet 11/28/19 06/15/20 Aspirin] Acetaminophen [Tylenol] 650 mg PO QID PRN 03/07/20 06/15/20 Apixaban [Eliquis] 2.5 mg PO BID 03/07/20 06/15/20 Atorvastatin Calcium 80 mg PO DAILY PM 03/07/20 06/15/20 Citalopram Hydrobromide 10 mg PO DAILY PRN 03/07/20 06/15/20 [Citalopram HBr] Clopidogrel [Plavix] 75 mg PO DAILY 03/07/20 06/15/20 Gabapentin 100 mg PO DAILY PM 03/07/20 06/15/20 Hydralazine HCl 25 mg PO Q6HR PRN 03/07/20 06/15/20 Metoprolol Tartrate 0.5 tab PO BID 03/07/20 06/15/20 Midodrine HCl 5 mg PO QID 03/07/20 06/15/20 Ondansetron [Ondansetron Odt] 4 mg PO Q8HR 03/07/20 06/15/20 Potassium Chloride 10 meq PO BID 03/07/20 06/15/20 Pantoprazole [Protonix] 1 tab PO DAILY 06/15/20 06/15/20 - Allergies Allergies/Adverse Reactions: Allergies Allergy/AdvReac Type Severity Reaction Status Date / Time No Known Drug Allergies Allergy Verified 07/30/21 14:39 - Social History Does the pt smoke?: No Smoking Status: Never smoker Does the pt drink ETOH?: No Does the pt have substance abuse?: No - Immunizations Immunizations are current?: No - POLST Patient has POLST: No PD ED PE NORMAL - Vitals Vital signs reviewed: Yes - General General: Alert and oriented X 3, No acute distress - HEENT HEENT: Moist mucous membranes - Neck Neck: Supple, no meningeal sign - Cardiac Cardiac: RRR - Respiratory Respiratory: No respiratory distress, Clear bilaterally - Derm Derm: Warm and dry - Extremities Extremities: No edema, Other (Limited range of motion of the left shoulder secondary to pain. Neurovascularly intact. She holds the left hand in a clenched fist.) - Neuro Neuro: Alert and oriented X 3, Other (Left arm and left leg paralysis) - Psych Psych: Normal mood, Normal affect Results - Vitals Vitals: Vital Signs - 24 hr 07/30/21 07/30/21 07/30/21 14:33 15:56 16:00 Temperature 36.2 C L Heart Rate 66 65 68 Respiratory 18 21 13 Rate Blood Pressure 146/76 H 141/82 H 173/90 H O2 Saturation 98 98 100 07/30/21 07/30/21 16:05 16:12 Temperature Heart Rate 81 64 Respiratory 18 14 Rate Blood Pressure 167/71 H O2 Saturation 100 Oxygen O2 Source Room air - Rads (name of study) Left shoulder x-ray Postreduction Radiology: Final report received, EMP read contemporaneously, See rad report (Interval reduction without visualized fracture. ) Procedures - Reduction Body part reduced: Left, Shoulder Fracture or dislocation: Dislocation Anesthesia: Other (Propofol) Shoulder reduction technique: [place] / ext rotation Reduction aftercare: NV intact, Xray confirms reduction, Alignment improved, Sling - Procedural sedation Sedation prep: Informed consent, ASA 3 - severe disease Sedation Medications: propofol Mallampati classification: III Patient status during sedation: Vitals remained stable, Maintained airway, Recovered uneventfully Sedation recovery: Recovered uneventfully Time in sedation (Minutes): 25 PD MEDICAL DECISION MAKING - ED course Complexity details: reviewed results, re-evaluated patient, considered differential, d/w patient, d/w customer service and sales consultant ED course: 71-year-old female with a inferior left shoulder dislocation that was reduced. She appears to have a chronic subluxation secondary to paralysis in that arm. Placed in a sling. Dr. Randall, orthopedics also came and evaluated the patient. Does not feel that she needs any further work-up at this time. Recommends follow-up with her PCP as an outpatient. Patient and family counseled regarding signs and symptoms for which I believe and urgent re-evaluation would be necessary. Patient with good understanding of and agreement to plan and is comfortable going home at this time This document was made in part using voice recognition software. While efforts are made to proofread this document, sound alike and grammatical errors may occur. Departure - Departure Disposition: 01 Home, Self Care Clinical Impression: Subluxation of left shoulder joint Qualifiers: Encounter type: initial encounter Qualified Code(s): S43.002A - Unspecified subluxation of left shoulder joint, initial encounter Condition: Good Instructions: Stroke Arm Care Follow-Up: PHIL CHAPPELL MD [Primary Care Provider] - Within 1 week Comments: Her left shoulder appears subluxed at this time. This is likely secondary to the paralysis of the left arm from the stroke. Does not appear to be acutely dislocated. Please follow-up with her doctor for further care. Return if she worsens Discharge Date/Time: 07/30/21 16:24
[2021-07-30 16:12] VITALS: BP 167/71
--- NOTE | 2021-07-30 16:20 | XRAY Report ---
PROCEDURE: Shoulder 2 View LT INDICATIONS: post reduction TECHNIQUE: 2 views of the shoulder were acquired. COMPARISON: None. FINDINGS: Bones: No fractures or dislocations. There is been interval reduction of the previous inferior disl ocation. No suspicious bony lesions. Visualized ribs appear intact. Soft tissues: No suspicious soft tissue calcifications. IMPRESSION: Interval reduction without visualized fracture. Reviewed by: Chantal Fletcher MD on 07/30/2021 4:19 PM PST Approved by: Chantal Fletcher MD on 07/30/2021 4:19 PM PST Station ID: [id number]
== END 2021-07-30 16:24 | disposition home or self-care (01) ==
LOC: ED 14:28
DX: S43.002A Unspecified subluxation of left shoulder joint, initial encounter (principal); X58.XXXA Exposure to other specified factors, initial encounter; I10 Essential (primary) hypertension; E11.9 Type 2 diabetes mellitus without complications; I48.91 Unspecified atrial fibrillation; Z79.01 Long term (current) use of anticoagulants
CPT/HCPCS: 94770; 99152; 99153; 99282; 99285

== ENCOUNTER 2021-08-11 15:25 | Outpatient (CLI) | payer MEDICARE, OTHER ==
[2021-08-11 15:45] LABS: BASOPHILS % (AUTO) 0.8 %; EOSINOPHILS % (AUTO) 0.2 %; HCT - HEMATOCRIT 42.4 % (37.0-47.0); HGB - HEMOGLOBIN 13.2 g/dL (12.0-16.0); LYMPHOCYTES % (AUTO) 20.1 %; MEAN CORPUSCULAR HEMOGLOBIN 30.3 pg (27.0-31.0); MEAN CORPUSCULAR HGB CONC 31.1 g/dL (32.0-36.0); MEAN CORPUSCULAR VOLUME 97.2 fL (81.0-99.0); MEAN PLATELET VOLUME 9.7 fL (7.9-10.8); MONOCYTES # (AUTO) 0.6 10^3/uL (0.0-1.0); MONOCYTES % (AUTO) 11.5 %; NEUTROPHILS # (AUTO) 3.2 10^3/uL (1.5-6.6); PLT - PLATELET COUNT 173 10^3/uL (130-450); RED BLOOD COUNT 4.36 10^6/uL (4.20-5.40); RED CELL DISTRIBUTION WIDTH 15.5 % (12.0-15.0); WHITE BLOOD COUNT 4.8 x10^3/uL (4.8-10.8)
[2021-08-11 16:07] LABS: ALBUMIN 3.5 g/dL (3.2-5.5); BILIRUBIN,TOTAL 0.5 mg/dL (0.2-1.0); CALCIUM 9.3 mg/dL (8.5-10.3); POTASSIUM 5.4 mmol/L (3.5-5.0)
[2021-08-11 16:21] LABS: CREATININE 7.4 mg/dL (0.4-1.0)
== END 2021-08-11 15:26 | disposition home or self-care (01) ==
LOC: LAB 15:25 → LAB.R 15:26
DX: I13.2 Hypertensive heart and chronic kidney disease with heart failure and with stage 5 chronic kidney disease, or end stage renal disease (principal)
CPT/HCPCS: 80053; 85025

== ENCOUNTER 2021-08-12 01:27 | Emergency (ER) | payer MEDICARE, OTHER ==
--- OUTSIDE RECORDS SUMMARY | 2021-08-12 01:46 | EXTERNAL MEDICAL SUMMARY RPT | Continuity of Care Document ---
:1950 Author Organization [employer] Address [address] [place] [address] Phone Allergies No information. Encounters No information. Medications No information. Problems date description facility [id number] Unspecified complication of cardiac and [employer] [facility] vascular prosthetic device, implant and graft, initial encounter [id number] Hyperkalemia [facility] [id number] Dependence on renal dialysis [facility] Results No information.
[2021-08-12] MEDS ORDERED: ACETAMINOPHEN 500 MG TABLET PO STA (01:48)
--- NOTE | 2021-08-12 02:07 | ED Physician Documentation ---
History of Present Illness - Stated complaint Stated Complaint: ABNORMAL LABS - Chief complaint Chief Complaint: General - History obtained from History obtained from: Patient, EMS - Additonal information Additional information: Patient with a history of stroke and renal failure (on HD) Presenting for evaluation of abnormal labs. Patient Resides at [facility] and reports feeling unwell yesterday. She then did not feel well enough to go to her dialysis appointment and missed her appointment.Due to the missed dialysis appointment, labs were ordered by the facility.Reportedly she had an elevated potassium level of 5.5 and the doctor on-call requested patient be transported for evaluation.Patient denies recent cough, abdominal pain, vomiting, diarrhea. She does report making some urine and denies Dysuria, dark-colored urine, Or odor to urine.She believes she was last dialyzed on Wednesday. Review of Systems Constitutional: reports: Fever Throat: denies: Sore throat Cardiac: denies: Chest pain / pressure Respiratory: denies: Dyspnea, Cough GI: denies: Abdominal Pain, Nausea, Vomiting : denies: Dysuria Skin: denies: Rash Neurologic: denies: Headache PD PAST MEDICAL HISTORY - Past Medical History Past Medical History: Yes Cardiovascular: Hypertension, High cholesterol Respiratory: Sleep apnea Neuro: CVA Endocrine/Autoimmune: Type 2 diabetes GI: None ADMINISTRATIVE AIDE: None : Renal insuffiency HEENT: None Psych: None Musculoskeletal: None Derm: None - Past Surgical History Past Surgical History: Yes Cardiovascular: Other HEENT: Cataracts - Present Medications Home Medications: Ambulatory Orders Medication Instructions Recorded Confirmed Aspirin Chewable [[place] 81 mg PO DAILY #10 tablet 11/28/19 08/12/21 Aspirin] Acetaminophen [Tylenol] 650 mg PO QID PRN 03/07/20 08/12/21 Apixaban [Eliquis] 2.5 mg PO BID 03/07/20 08/12/21 Atorvastatin Calcium 80 mg PO DAILY PM 03/07/20 08/12/21 Citalopram Hydrobromide 10 mg PO DAILY PRN 03/07/20 08/12/21 [Citalopram HBr] Clopidogrel [Plavix] 75 mg PO DAILY 03/07/20 08/12/21 Gabapentin 100 mg PO DAILY PM 03/07/20 08/12/21 Hydralazine HCl 25 mg PO Q6HR PRN 03/07/20 08/12/21 Metoprolol Tartrate 0.5 tab PO BID 03/07/20 08/12/21 Midodrine HCl 5 mg PO QID 03/07/20 08/12/21 Ondansetron [Ondansetron Odt] 4 mg PO Q8HR 03/07/20 08/12/21 Potassium Chloride 10 meq PO BID 03/07/20 08/12/21 Pantoprazole [Protonix] 1 tab PO DAILY 06/15/20 08/12/21 - Allergies Allergies/Adverse Reactions: Allergies Allergy/AdvReac Type Severity Reaction Status Date / Time clonidine Allergy Unknown Verified 08/12/21 01:34 - Social History Does the pt smoke?: No Smoking Status: Never smoker Does the pt drink ETOH?: No Does the pt have substance abuse?: No - Immunizations Immunizations are current?: No - POLST Patient has POLST: No PD ED PE NORMAL - General General: Alert and oriented X 3, No acute distress, Well developed/nourished - HEENT HEENT: Atraumatic, PERRL, Other (Dry oral mucosa) - Neck Neck: Supple, no meningeal sign - Cardiac Cardiac: RRR, No murmur, Other (Right-sided subclavian Colton, No surrounding erythema, swelling or tenderness, No abnormal discharge from insertion site) - Respiratory Respiratory: No respiratory distress, Clear bilaterally - Abdomen Abdomen: Normal bowel sounds, Non tender - Derm Derm: Normal color - Extremities Extremities: Other (Left upper extremity contracture) - Neuro Neuro: Alert and oriented X 3, Normal speech - Psych Psych: Normal mood Results - Vitals Vitals: Vital Signs - 24 hr 08/12/21 08/12/21 08/12/21 01:34 03:01 03:02 Temperature 38.9 C H Heart Rate 88 72 73 Respiratory 16 19 21 Rate Blood Pressure 149/95 H 124/61 124/61 O2 Saturation 97 95 95 08/12/21 08/12/21 08/12/21 03:30 03:32 04:21 Temperature Heart Rate 69 69 72 Respiratory 17 15 17 Rate Blood Pressure 142/105 H 129/93 H 138/54 H O2 Saturation 97 97 93 08/12/21 08/12/21 08/12/21 04:30 04:55 05:03 Temperature 36.7 C Heart Rate 64 71 Respiratory 16 16 Rate Blood Pressure 131/65 H 115/67 O2 Saturation 96 97 08/12/21 08/12/21 08/12/21 05:30 06:00 06:30 Temperature Heart Rate 62 69 63 Respiratory 16 14 15 Rate Blood Pressure 157/72 H 134/63 H 152/61 H O2 Saturation 94 100 96 08/12/21 08/12/21 08/12/21 07:00 07:31 08:00 Temperature 36.5 C Heart Rate 71 69 69 Respiratory 16 15 14 Rate Blood Pressure 143/72 H 154/107 H 159/106 H O2 Saturation 98 100 96 08/12/21 08/12/21 08/12/21 08:30 09:00 09:30 Temperature Heart Rate 90 76 73 Respiratory 15 18 15 Rate Blood Pressure 162/82 H 162/82 H 188/101 H O2 Saturation 94 95 95 08/12/21 08/12/21 08/12/21 10:00 10:53 11:05 Temperature 37.7 C Heart Rate 76 75 71 Respiratory 20 17 15 Rate Blood Pressure 143/110 H 152/78 H 165/84 H O2 Saturation 94 96 94 08/12/21 08/12/21 08/12/21 11:30 12:00 13:00 Temperature Heart Rate 78 76 66 Respiratory 25 H 18 15 Rate Blood Pressure 106/87 H 158/78 H 156/71 H O2 Saturation 92 96 97 08/12/21 08/12/21 08/12/21 13:30 14:06 15:00 Temperature 37.6 C Heart Rate 61 63 59 L Respiratory 11 L 12 14 Rate Blood Pressure 144/61 H 161/64 H 159/65 H O2 Saturation 97 98 100 08/12/21 08/12/21 08/12/21 15:49 16:00 16:28 Temperature 37.1 C Heart Rate 71 71 70 Respiratory 13 21 14 Rate Blood Pressure 117/89 H 134/78 H 134/78 H O2 Saturation 100 100 100 08/12/21 08/12/21 16:30 17:04 Temperature Heart Rate 71 79 Respiratory 13 18 Rate Blood Pressure 155/86 H O2 Saturation 100 100 Oxygen O2 Source Room air - EKG (time done) 0220 Rate: Rate (enter#) (78) Rhythm: NSR Ischemia: No: ST elevation c/w ischemia, Hyperacute T waves Computer interpretation: Agree with computer - Labs Labs: Laboratory Tests 08/12/21 08/12/21 08/12/21 01:55 04:10 04:10 WBC 5.0 RBC 4.17 L Hgb 12.7 Hct 40.5 MCV 97.1 MCH 30.5 MCHC 31.4 L RDW 15.6 H Plt Count 172 MPV 10.1 Neut # (Auto) 3.8 Lymph # (Auto) 0.[address] [place] # (Auto) 0.5 Eos # (Auto) 0.0 Baso # (Auto) 0.0 Absolute Nucleated RBC 0.00 Nucleated RBC % 0.0 Sodium 134 L Potassium 5.7 H Chloride 102 Carbon Dioxide 18 L Anion Gap 14.0 H BUN 64 H Creatinine 7.6 H* Estimated GFR (MDRD) 5 L Glucose 101 H Lactic Acid Calcium 9.3 Phosphorus 4.6 Magnesium 2.2 Total Bilirubin 0.6 AST 10 ALT 12 Alkaline Phosphatase 54 Troponin I High Sens Total Protein 6.9 Albumin 3.6 Globulin 3.3 Albumin/Globulin Ratio 1.1 Lipase 44 Urine Color Urine Clarity Urine pH Ur Specific [place] Urine Protein Urine Glucose (UA) Urine Ketones Urine Occult Blood Urine Nitrite Urine Bilirubin Urine Urobilinogen Ur Leukocyte Esterase Urine RBC Urine WBC Ur Squamous Epith Cells Urine Bacteria Urine Culture Comments SARS-CoV-2 (PCR) NOT DETECTED 08/12/21 08/12/21 08/12/21 04:10 04:10 04:47 WBC RBC Hgb Hct MCV MCH MCHC RDW Plt Count MPV Neut # (Auto) Lymph # (Auto) [place] # (Auto) Eos # (Auto) Baso # (Auto) Absolute Nucleated RBC Nucleated RBC % Sodium Potassium Chloride Carbon Dioxide Anion Gap BUN Creatinine Estimated GFR (MDRD) Glucose Lactic Acid 0.7 Calcium Phosphorus Magnesium Total Bilirubin AST ALT Alkaline Phosphatase Troponin I High Sens 17.1 H* Total Protein Albumin Globulin Albumin/Globulin Ratio Lipase Urine Color YELLOW Urine Clarity CLEAR Urine pH 7.0 Ur Specific [place] 1.020 Urine Protein 100 H Urine Glucose (UA) 100 H Urine Ketones NEGATIVE Urine Occult Blood MODERATE H Urine Nitrite NEGATIVE Urine Bilirubin NEGATIVE Urine Urobilinogen 0.2 (NORMAL) Ur Leukocyte Esterase TRACE H Urine RBC 6-10 H Urine WBC 0-3 Ur Squamous Epith Cells MOD Squamous H Urine Bacteria Rare Urine Culture Comments NOT INDICATED SARS-CoV-2 (PCR) 08/12/21 08/12/21 10:20 17:03 WBC RBC Hgb Hct MCV MCH MCHC RDW Plt Count MPV Neut # (Auto) Lymph # (Auto) [place] # (Auto) Eos # (Auto) Baso # (Auto) Absolute Nucleated RBC Nucleated RBC % Sodium 133 L 133 L Potassium 5.3 H 5.3 H Chloride 103 103 Carbon Dioxide 19 L 19 L Anion Gap 11.0 11.0 BUN 66 H 64 H Creatinine 7.6 H* 7.7 H* Estimated GFR (MDRD) 5 L 5 L Glucose 95 88 Lactic Acid Calcium 9.0 9.0 Phosphorus Magnesium Total Bilirubin AST ALT Alkaline Phosphatase Troponin I High Sens Total Protein Albumin Globulin Albumin/Globulin Ratio Lipase Urine Color Urine Clarity Urine pH Ur Specific [place] Urine Protein Urine Glucose (UA) Urine Ketones Urine Occult Blood Urine Nitrite Urine Bilirubin Urine Urobilinogen Ur Leukocyte Esterase Urine RBC Urine WBC Ur Squamous Epith Cells Urine Bacteria Urine Culture Comments SARS-CoV-2 (PCR) Procedures - Central Line Central Line Preparation: Consent Obtained, Time out completed, Ultrasound used, Sterile prep and drape Central line location: Left IJ (Attempt made but unable to pass guidewire, Compression held to site for 10 minutes.), Right Femoral Central line type: Triple lumen Central line aftercare: Chlorhexidine disc placed, Secured, No pneumothorax, No complications, Pt tolerated well, Other (Repeat x-ray Obtained for attempt at left IJ and is negative for a pneumothorax) PD MEDICAL DECISION MAKING - ED course ED course: Patient presenting for evaluation of abnormal labs. Found to have fever on arrival. Septic work-up initiated. Patient is a very difficult IV access. Multiple attempts made by Phlebotomy and nursing staff without success. Left arm is contractured and unable to be used. Central line was placed in right femoral. Attempt was made at left IJ but unable to pass guidewire. Patient has a long incision overlying right neck And already has a right subclavian Colton.Therefore I did not make an attempt To the right IJ. Labs reviewed and significant for a potassium of 5.7. No clear source for the patient's fever. Her abdominal exam is benign. Urine was obtained and does not suggest an infection. Chest x-ray is negative for pneumonia and patient does not have pneumonia symptoms.Concerns that the fevers is from a line infection as patient has a Colton. I will start the patient on vancomycin and ceftazidime. We do not have nephrology coverage here or dialysis, therefore I will treat the hyperkalemia with IV insulin and D50. Patient additionally makes urine so I will give her a dose of Lasix. I do feel patient needs admission for dialysis due to the hyperkalemia as well as IV antibiotics given fever with unclear source in a dialysis patient. Plan for transfer to a facility with dialysis capabilities. 0650: Dr Woods - Patient's hawk missile system crewmember has been paged to review the case with him. The on-call covering provider has not yet returned our page. There are no beds available at [facility].Gisell Osborn may have discharges later This morning and will give us a call back. Patient will be signed out to oncoming provider. - Critical Care Time(min): 32 Time Includes: Direct patient care, Review records, Reassess patient, Document care Data interpretation: Labs Procedures excluded from critical care time: Central IV Departure - Departure Disposition: 02 Transfer Acute Care Hosp Clinical Impression: Fever, unknown origin, Hyperkalemia, ESRD (end stage renal disease) on dialysis Condition: Stable Discharge Date/Time: 08/12/21 17:45
[2021-08-12 04:30] LABS: BASOPHILS % (AUTO) 0.6 %; EOSINOPHILS % (AUTO) 0.2 %; HCT - HEMATOCRIT 40.5 % (37.0-47.0); HGB - HEMOGLOBIN 12.7 g/dL (12.0-16.0); LYMPHOCYTES # (AUTO) 0.6 10^3/uL (1.5-3.5); LYMPHOCYTES % (AUTO) 12.7 %; MEAN CORPUSCULAR HEMOGLOBIN 30.5 pg (27.0-31.0); MEAN CORPUSCULAR HGB CONC 31.4 g/dL (32.0-36.0); MEAN CORPUSCULAR VOLUME 97.1 fL (81.0-99.0); MEAN PLATELET VOLUME 10.1 fL (7.9-10.8); MONOCYTES # (AUTO) 0.5 10^3/uL (0.0-1.0); MONOCYTES % (AUTO) 10.4 %; NEUTROPHILS # (AUTO) 3.8 10^3/uL (1.5-6.6); NEUTROPHILS % (AUTO) 75.7 %; PLT - PLATELET COUNT 172 10^3/uL (130-450); RED BLOOD COUNT 4.17 10^6/uL (4.20-5.40); RED CELL DISTRIBUTION WIDTH 15.6 % (12.0-15.0)
[2021-08-12 04:51] LABS: ALBUMIN 3.6 g/dL (3.2-5.5); ALBUMIN/GLOBULIN RATIO 1.1 (1.0-2.2); BILIRUBIN,TOTAL 0.6 mg/dL (0.2-1.0); CALCIUM 9.3 mg/dL (8.5-10.3); MAGNESIUM 2.2 mg/dL (1.7-2.8); PHOSPHORUS 4.6 mg/dL (2.5-4.6); POTASSIUM 5.7 mmol/L (3.5-5.0); TOTAL PROTEIN 6.9 g/dL (6.7-8.2)
[2021-08-12 04:52] LABS: BILIRUBIN,URINE NEGATIVE (NEGATIVE); GLUCOSE, URINE (UA) 100 mg/dL (NEGATIVE); KETONES,URINE (UA) NEGATIVE (NEGATIVE); LEUKOCYTE ESTERASE, URINE TRACE (NEGATIVE); NITRITE,URINE NEGATIVE (NEGATIVE); OCCULT BLOOD,URINE MODERATE (NEGATIVE); PROTEIN,URINE 100 mg/dL (NEGATIVE); UROBILINOGEN,URINE 0.2 (NORMAL) E.U./dL (NORMAL)
[2021-08-12 04:54] LABS: CREATININE 7.6 mg/dL (0.4-1.0)
[2021-08-12 04:56] LABS: CLARITY,URINE CLEAR (CLEAR)
[2021-08-12 05:00] LABS: BACTERIA,URINE Rare /HPF (None Seen); SQUAMOUS EPITHELIAL CELL,UR MOD Squamous (<= Few); WBC,URINE 0-3 /HPF (0-5)
[2021-08-12] MEDS ORDERED: VANCOMYCIN INJ 1,500 GM in SODIUM CHLORIDE 0.9% 500 ML IV STA (05:02)
[2021-08-12] MEDS ORDERED: INSULIN REGULAR HUMAN 100 UNIT/1 ML 10 ML MDV IVP STA (05:03)
[2021-08-12] MEDS ORDERED: DEXTROSE 50% ABBOJECT 25 GM/50 ML SYRINGE IVP STA (05:04)
[2021-08-12] MEDS ORDERED: VANCOMYCIN 500 MG VIAL ONE (05:56)
[2021-08-12] MEDS ORDERED: cefTAZidime 1 GM in SODIUM CHLORIDE 0.9% MINIBAG 100 ML IV ONE (06:00)
[2021-08-12] MEDS ORDERED: VANCOMYCIN INJ 1.5 GM in SODIUM CHLORIDE 0.9% 500 ML IV STA (06:17)
[2021-08-12] MEDS ORDERED: SODIUM CHLORIDE 0.9% IV SCH (07:00)
[2021-08-12] MEDS ORDERED: VANCOMYCIN IV SCH (07:00)
--- NOTE | 2021-08-12 10:19 | XRAY Report ---
PROCEDURE: Chest 1 View X-Ray INDICATIONS: fever/weak TECHNIQUE: One view of the chest was acquired. COMPARISON: Chest x-ray 03/07/2020 FINDINGS: Surgical changes and devices: Right-sided dialysis catheter is present, unchanged. Lungs and pleura: No pleural effusions or pneumothorax. There is an overall appearance of increased pulmonary vascularity. Mediastinum: Mediastinal contours appear normal. Heart size is enlarged. Bones and chest wall: No suspicious bony lesions. Overlying soft tissues appear unremarkable. IMPRESSION: Cardiomegaly with increased vascularity suggestive of edema. The above findings are concordant with preliminary report. Reviewed by: Chantal Fletcher MD on 08/12/2021 10:18 AM PDT Approved by: Chantal Fletcher MD on 08/12/2021 10:18 AM PDT Station ID: [id number]
--- NOTE | 2021-08-12 10:20 | XRAY Report ---
PROCEDURE: Chest 1 View X-Ray INDICATIONS: attempted [facility] CVC - unable to pass wire TECHNIQUE: One view of the chest was acquired. COMPARISON: Chest x-ray 08/12/2021 FINDINGS: Surgical changes and devices: Right-sided dialysis catheter is unchanged. Lungs and pleura: Mild increased vascularity. No consolidations or pneumothorax. Mediastinum: Mediastinal contours appear normal. Heart size is enlarged. Bones and chest wall: No suspicious bony lesions. Overlying soft tissues appear unremarkable. IMPRESSION: Stable interval exam demonstrating cardiomegaly with increased vascularity suggestive of edema. The above findings are concordant with preliminary report. Reviewed by: Chantal Fletcher MD on 08/12/2021 10:19 AM PDT Approved by: Chantal Fletcher MD on 08/12/2021 10:19 AM PDT Station ID: [id number]
[2021-08-12 10:46] LABS: POTASSIUM 5.3 mmol/L (3.5-5.0)
[2021-08-12 10:49] LABS: CREATININE 7.6 mg/dL (0.4-1.0)
[2021-08-12] MEDS ORDERED: ACETAMINOPHEN 325 MG TABLET PO STA (10:52)
--- NOTE | 2021-08-12 13:02 | ED Physician Documentation ---
ED Addendum - Addendum Addendum: 08/12/21 13:00 71-year-old female endorsed to me by my off going night partner presented to the emergency department last night after getting a call from her primary care doctor about elevated potassium. She had skipped her dialysis yesterday as not feeling well. She arrived to the emergency department last night with a fever of [address] Rivera took care of this patient last night and required administration of a central line into the right femoral access and through this she was able to administer vancomycin and cefepime. The patient also received treatment for hyperkalemia with insulin and dextrose. This morning she is now afebrile her vital signs are stable her white count is normal and no other source of infection was discovered. The thought is she may have a line sepsis. Dr. Rowe the hospitalist at [facility] was kind enough to contact us and will accept the patient in transfer. 08/12/21 13:01 08/12/21 13:02 Final impression fever of unknown origin, end-stage renal dialysis, hyperkalemia Disposition: Transferred to with Dr. Rowe accepting. 08/12/21 13:03 08/12/21 16:49 Bed is still not available. At shift change care is turned over to Dr. Blair
[2021-08-12 16:38] VITALS: BP 155/86
[2021-08-12 17:19] LABS: POTASSIUM 5.3 mmol/L (3.5-5.0)
[2021-08-12 17:21] LABS: CREATININE 7.7 mg/dL (0.4-1.0)
== END 2021-08-12 17:45 | disposition short-term general hospital (02) ==
LOC: EDUNIT# → ED 01:27
DX: E87.5 Hyperkalemia (principal); R50.9 Fever, unspecified; E11.22 Type 2 diabetes mellitus with diabetic chronic kidney disease; I12.0 Hypertensive chronic kidney disease with stage 5 chronic kidney disease or end stage renal disease; N18.6 End stage renal disease; Z99.2 Dependence on renal dialysis; Z20.822 Contact with and (suspected) exposure to COVID-19
CPT/HCPCS: 36415; 36556; 71045; 80048; 80053; 81001; 83605; 83690; 83735; 84100; 84484; 85025; 87040; 87150; 87635; 93005; 96365; 96366; 96368; 96375; 99285; 99291; A9270; J1815; J3370; 87086

== ENCOUNTER 2021-08-12 01:27 | Outpatient (CLI) | payer MEDICARE, OTHER | END 2021-08-12 01:28 | disposition critical access hospital (66) | LOC: EMS 01:27 | DX: R79.89 Other specified abnormal findings of blood chemistry (principal); R50.9 Fever, unspecified; R25.1 Tremor, unspecified; R53.81 Other malaise; Z99.2 Dependence on renal dialysis | CPT/HCPCS: A0425; A0429 ==

== ENCOUNTER 2021-08-12 17:44 | Outpatient (CLI) | payer MEDICARE, OTHER | END 2021-08-12 17:45 | disposition short-term general hospital (02) | LOC: EMS 17:44 | PROVIDERS: ATTEND Emergency Medicine | DX: R50.9 Fever, unspecified (principal); E87.5 Hyperkalemia; N18.6 End stage renal disease; Z99.2 Dependence on renal dialysis | CPT/HCPCS: A0425; A0428 ==

== ENCOUNTER 2021-09-07 16:09 | Outpatient (CLI) | payer MEDICARE, OTHER | END 2021-09-07 16:10 | disposition short-term general hospital (02) | LOC: EMS 16:09 | DX: Z45.2 Encounter for adjustment and management of vascular access device (principal) | CPT/HCPCS: A0425; A0429 ==

== ENCOUNTER 2021-09-12 15:52 | Outpatient (CLI) | payer MEDICARE, OTHER, MEDICAID | END 2021-09-12 15:53 | disposition short-term general hospital (02) | LOC: EMS 15:52 | DX: T82.42XA Displacement of vascular dialysis catheter, initial encounter (principal); R58 Hemorrhage, not elsewhere classified; Y92.538 Other ambulatory health services establishments as the place of occurrence of the external cause; Z99.2 Dependence on renal dialysis | CPT/HCPCS: A0425; A0429 ==

== ENCOUNTER 2022-02-20 19:49 | Outpatient (CLI) | payer MEDICARE, OTHER | END 2022-02-20 19:50 | disposition critical access hospital (66) | LOC: EMS 19:49 | DX: M79.602 Pain in left arm (principal); R25.2 Cramp and spasm; R11.2 Nausea with vomiting, unspecified; I69.398 Other sequelae of cerebral infarction; Z99.2 Dependence on renal dialysis | CPT/HCPCS: A0425; A0429 ==

== ENCOUNTER 2022-02-20 20:04 | Emergency (ER) | payer MEDICARE, OTHER ==
[2022-02-20] MEDS ORDERED: LORazepam 1 MG TABLET PO STA (20:18)
[2022-02-20] MEDS ORDERED: LIDOCAINE PATCH 5% TOP STA (20:22)
--- NOTE | 2022-02-20 20:30 | ED Physician Documentation ---
History of Present Illness - Stated complaint Stated Complaint: L ARM CRAMPING - Chief complaint Chief Complaint: Ext Problem - History obtained from History obtained from: Patient, Family () - Additonal information Additional information: Patient is a 72-year-old female with a history of stroke and end-stage renal disease on dialysis presenting for evaluation of cramping and pain to her left arm that started during dialysis around 430 this evening. Patient completed dialysis around 515 and per her completed the full session.She only needs to attend dialysis Mondays and Fridays. 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 Normally he is able to give Tylenol or massage it and it relaxes But he tried those today and it did not improve. Patient denies any recent falls or injuries. Denies pain elsewhere such as in the chest. Review of Systems Constitutional: denies: Fever Nose: denies: Congestion Cardiac: denies: Chest pain / pressure Respiratory: denies: Dyspnea GI: denies: Abdominal Pain : denies: Dysuria Musculoskeletal: reports: Extremity pain. denies: Back pain Neurologic: denies: Headache PD PAST MEDICAL HISTORY - Past Medical History Cardiovascular: Hypertension, High cholesterol Respiratory: Sleep apnea Neuro: CVA Endocrine/Autoimmune: Type 2 diabetes GI: None SUPERVISOR OF GUIDANCE AND TESTING: None : Renal insuffiency HEENT: None Psych: None Musculoskeletal: None Derm: None - Past Surgical History Past Surgical History: Yes Cardiovascular: Other HEENT: Cataracts - Present Medications Home Medications: Ambulatory Orders Medication Instructions Recorded Confirmed Aspirin Chewable [[place] 81 mg PO DAILY #10 tablet 11/28/19 08/12/21 Aspirin] Acetaminophen [Tylenol] 650 mg PO QID PRN 03/07/20 08/12/21 Apixaban [Eliquis] 2.5 mg PO BID 03/07/20 08/12/21 Atorvastatin Calcium 80 mg PO DAILY PM 03/07/20 08/12/21 Citalopram Hydrobromide 10 mg PO DAILY PRN 03/07/20 08/12/21 [Citalopram HBr] Clopidogrel [Plavix] 75 mg PO DAILY 03/07/20 08/12/21 Gabapentin 100 mg PO DAILY PM 03/07/20 08/12/21 Hydralazine HCl 25 mg PO Q6HR PRN 03/07/20 08/12/21 Metoprolol Tartrate 0.5 tab PO BID 03/07/20 08/12/21 Midodrine HCl 5 mg PO QID 03/07/20 08/12/21 Ondansetron [Ondansetron Odt] 4 mg PO Q8HR 03/07/20 08/12/21 Potassium Chloride 10 meq PO BID 03/07/20 08/12/21 Pantoprazole [Protonix] 1 tab PO DAILY 06/15/20 08/12/21 - Allergies Allergies/Adverse Reactions: Allergies Allergy/AdvReac Type Severity Reaction Status Date / Time clonidine Allergy Unknown Verified 02/20/22 20:13 - Social History Does the pt smoke?: No Smoking Status: Never smoker Does the pt drink ETOH?: No Does the pt have substance abuse?: No - Immunizations Immunizations are current?: No - POLST Patient has POLST: No PD ED PE NORMAL - General General: Alert and oriented X 3, No acute distress, Well developed/nourished - HEENT HEENT: Atraumatic - Neck Neck: Supple, no meningeal sign - Cardiac Cardiac: RRR, No murmur, Strong equal pulses - Respiratory Respiratory: No respiratory distress, Clear bilaterally - Abdomen Abdomen: Normal bowel sounds, Soft, Non tender - Extremities Extremities: No tenderness to palpate, No edema, Other (Left arm Contracture, held in flexion, no bony tenderness noted on palpation, no erythema or swelling, radial pulse intact,Arm stiffened and patient not able to relax it) Results - Vitals Vitals: Vital Signs - 24 hr 02/20/22 02/20/22 20:13 22:25 Temperature 36.5 C Heart Rate 86 79 Respiratory 20 18 Rate Blood Pressure 180/97 H 180/93 H O2 Saturation 98 99 Oxygen O2 Source Room air - EKG (time done) 2027 Rate: Rate (enter#) (83) Rhythm: NSR Intervals: No: Prolonged QT Ischemia: No: ST elevation c/w ischemia, Hyperacute T waves - Labs Labs: Laboratory Tests 02/20/22 02/20/22 20:26 20:26 WBC 7.1 RBC 4.11 L Hgb 12.2 Hct 37.1 MCV 90.3 MCH 29.7 MCHC 32.9 RDW 14.6 Plt Count 208 MPV 9.2 Neut # (Auto) 4.9 Lymph # (Auto) 1.3 L [place] # (Auto) 0.4 Eos # (Auto) 0.3 Baso # (Auto) 0.1 Absolute Nucleated RBC 0.00 Nucleated RBC % 0.0 Sodium 133 L Potassium 3.5 Chloride 98 L Carbon Dioxide 23 Anion Gap 12.0 BUN 13 Creatinine 3.1 H Estimated GFR (MDRD) 15 L Glucose 135 H Calcium 8.5 Magnesium 1.7 Total Bilirubin 0.7 AST 17 ALT 21 Alkaline Phosphatase 78 Total Protein 7.3 Albumin 3.8 Globulin 3.5 Albumin/Globulin Ratio 1.1 PD MEDICAL DECISION MAKING - ED course Complexity details: reviewed results, re-evaluated patient, d/w patient, d/w family ED course: Patient with left arm cramping and pain which started at dialysis. Per this is a regular occurrence and usually he is able to manage her symptoms but was not able to this evening. EKG reassuring without signs of acute ischemia and labs Without significant findings including normal electrolytes. Patient given 1 dose of p.o. Ativan. X-ray of the shoulder was obtained due to history of chronic subluxation. Shoulder appears to be intact. No bony tenderness noted. Distal pulses present. No swelling to suggest DVT. Patient symptoms quickly improved.Discussed with patient and her that they should have close follow-up with her primary care doctor as states this often happens during dialysis. 2102 - Pt feeling better, says arm feels looser And she is able to move it around a bit now with the aid of her right arm which is how she usually moves it.. Departure - Departure Disposition: 01 Home, Self Care Clinical Impression: Left arm pain, Cramp of muscle of left upper extremity Condition: Stable Instructions: ED Spasm Muscle Follow-Up: PHIL CHAPPELL MD [Primary Care Provider] - Comments: You were evaluated for pain/cramping to your left arm. Your shoulder x-ray does not show a fracture or dislocation. Your labs were reassuring. Good improvem ent with dose of muscle relaxer called Ativan. Please call your primary care doctor on Wednesday for close follow-up as you reported often having these episodes during dialysis. They may recommend medications to take to help prevent these episodes in the future. Return to ER with any worsening symptoms. Discharge Date/Time: 02/20/22 22:27
[2022-02-20 20:31] LABS: BASOPHILS # (AUTO) 0.1 10^3/uL (0.0-0.1); BASOPHILS % (AUTO) 0.7 %; EOSINOPHILS # (AUTO) 0.3 10^3/uL (0.0-0.7); EOSINOPHILS % (AUTO) 4.2 %; HCT - HEMATOCRIT 37.1 % (37.0-47.0); HGB - HEMOGLOBIN 12.2 g/dL (12.0-16.0); LYMPHOCYTES # (AUTO) 1.3 10^3/uL (1.5-3.5); LYMPHOCYTES % (AUTO) 18.8 %; MEAN CORPUSCULAR HEMOGLOBIN 29.7 pg (27.0-31.0); MEAN CORPUSCULAR HGB CONC 32.9 g/dL (32.0-36.0); MEAN CORPUSCULAR VOLUME 90.3 fL (81.0-99.0); MEAN PLATELET VOLUME 9.2 fL (7.9-10.8); MONOCYTES # (AUTO) 0.4 10^3/uL (0.0-1.0); MONOCYTES % (AUTO) 6.2 %; NEUTROPHILS # (AUTO) 4.9 10^3/uL (1.5-6.6); NEUTROPHILS % (AUTO) 69.5 %; PLT - PLATELET COUNT 208 10^3/uL (130-450); RED BLOOD COUNT 4.11 10^6/uL (4.20-5.40); RED CELL DISTRIBUTION WIDTH 14.6 % (12.0-15.0); WHITE BLOOD COUNT 7.1 x10^3/uL (4.8-10.8)
[2022-02-20 20:43] LABS: ALBUMIN 3.8 g/dL (3.2-5.5); ALBUMIN/GLOBULIN RATIO 1.1 (1.0-2.2); BILIRUBIN,TOTAL 0.7 mg/dL (0.2-1.0); CALCIUM 8.5 mg/dL (8.5-10.3); CREATININE 3.1 mg/dL (0.4-1.0); MAGNESIUM 1.7 mg/dL (1.7-2.8); POTASSIUM 3.5 mmol/L (3.5-5.0); TOTAL PROTEIN 7.3 g/dL (6.7-8.2)
--- NOTE | 2022-02-20 21:05 | XRAY Report ---
PROCEDURE: Shoulder 3 View LT INDICATIONS: Pain with history of dislocation TECHNIQUE: 4 views of the shoulder were acquired. COMPARISON: 07/30/2021. FINDINGS: Bones: No fractures or dislocations. There is moderate acromioclavicular and mild glenohumeral joint degeneration. No suspicious bony lesions. Visualized ribs appear intact. Soft tissues: No suspicious soft tissue calcifications. A left internal jugular central venous joanne ter is demonstrated with the tip projecting over the superior vena cava. There is a vascular stent in the right neck region. IMPRESSION: 1. No fracture or dislocation. Reviewed by: Arnaldo Parnell MD on 02/20/2022 9:03 PM PDT Approved by: Arnaldo Parnell MD on 02/20/2022 9:03 PM PDT Station ID: [id number]
[2022-02-20 22:27] VITALS: BP 180/93
== END 2022-02-20 22:27 | disposition home or self-care (01) ==
LOC: EDUNIT# → ED 20:04
DX: R25.2 Cramp and spasm (principal)
CPT/HCPCS: 36415; 73030; 80053; 83735; 85025; 93005; 99284; A9270; J8499

== ENCOUNTER 2022-02-20 22:27 | Outpatient (CLI) | payer MEDICARE, OTHER | END 2022-02-20 22:28 | disposition home or self-care (01) | LOC: EMS 22:27 | PROVIDERS: ATTEND Emergency Medicine | DX: I69.354 Hemiplegia and hemiparesis following cerebral infarction affecting left non-dominant side (principal); M79.602 Pain in left arm; R25.2 Cramp and spasm; R11.2 Nausea with vomiting, unspecified; Z99.2 Dependence on renal dialysis | CPT/HCPCS: A0425; A0428 ==

== ENCOUNTER 2022-03-02 19:58 | Emergency (ER) | payer MEDICARE, OTHER ==
[2022-03-02] MEDS ORDERED: LORazepam 1 MG TABLET PO STA (20:15)
--- NOTE | 2022-03-02 22:17 | ED Physician Documentation ---
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 She has had this issue in the past and responded well to Ativan. states that she has been getting agitated after dialysis and also has been having issues with spasm/pain in her arm for which they are seeing an occupational therapist. No known trauma to the arm. No other complaints. 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 : Renal insuffiency HEENT: None Psych: None Musculoskeletal: None Derm: None - Past Surgical History Past Surgical History: Yes Cardiovascular: Other HEENT: Cataracts - Present Medications Home Medications: Ambulatory Orders Medication Instructions Recorded Confirmed Aspirin Chewable [[place] 81 mg PO DAILY #10 tablet 11/28/19 08/12/21 Aspirin] Acetaminophen [Tylenol] 650 mg PO QID PRN 03/07/20 08/12/21 Apixaban [Eliquis] 2.5 mg PO BID 03/07/20 08/12/21 Atorvastatin Calcium 80 mg PO DAILY PM 03/07/20 08/12/21 Citalopram Hydrobromide 10 mg PO DAILY PRN 03/07/20 08/12/21 [Citalopram HBr] Clopidogrel [Plavix] 75 mg PO DAILY 03/07/20 08/12/21 Gabapentin 100 mg PO DAILY PM 03/07/20 08/12/21 Hydralazine HCl 25 mg PO Q6HR PRN 03/07/20 08/12/21 Metoprolol Tartrate 0.5 tab PO BID 03/07/20 08/12/21 Midodrine HCl 5 mg PO QID 03/07/20 08/12/21 Ondansetron [Ondansetron Odt] 4 mg PO Q8HR 03/07/20 08/12/21 Potassium Chloride 10 meq PO BID 03/07/20 08/12/21 Pantoprazole [Protonix] 1 tab PO DAILY 06/15/20 08/12/21 - Allergies Allergies/Adverse Reactions: Allergies Allergy/AdvReac Type Severity Reaction Status Date / Time clonidine Allergy Unknown Verified 03/02/22 20:05 - Social History Does the pt smoke?: No Smoking Status: Never smoker Does the pt drink ETOH?: No Does the pt have substance abuse?: No - Immunizations Immunizations are current?: No - POLST Patient has POLST: No PD ED PE NORMAL - Vitals Vital signs reviewed: Yes - General General: No acute distress, Well developed/nourished, Other (alert, anxious appearing on initial arrival, calming after physical exam and symptomatic care) - HEENT HEENT: Atraumatic, PERRL, EOMI - Neck Neck: Supple, no meningeal sign - Derm Derm: Normal color, Warm and dry - Extremities Extremities: Other (Left upper extremity contracture. Unable to move fingertips at baseline. Radial pulse present. Normal capillary refill. No specific areas of bony tenderness.No swelling) Results - Vitals Vitals: Vital Signs - 24 hr 03/02/22 03/02/22 20:02 20:05 Temperature 37.2 C Heart Rate 83 88 Respiratory 18 16 Rate Blood Pressure 169/78 H 169/78 H O2 Saturation 99 100 Oxygen O2 Source Room air PD MEDICAL DECISION MAKING - ED course ED course: 72-year-old woman presented complaining of left arm pain after dialysis. She has had this happen in the past and responded well to Ativan. Ativan was provided again today and she states that her pain has resolved. Return precautions given. Plan to follow-up with primary doctor. 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 Massage the arm daily and try to do some gentle stretching exercises. Follow-up with your primary doctor for further management. Return to the emergency department if you have any new or worsening symptoms or other concerns.
[2022-03-02 22:18] VITALS: BP 150/90
== END 2022-03-02 22:29 | disposition home or self-care (01) ==
LOC: EDUNIT# → ED 19:58
DX: G83.24 Monoplegia of upper limb affecting left nondominant side (principal); I69.398 Other sequelae of cerebral infarction; E11.9 Type 2 diabetes mellitus without complications; I10 Essential (primary) hypertension; N28.9 Disorder of kidney and ureter, unspecified; G47.30 Sleep apnea, unspecified
CPT/HCPCS: 99281; 99283; J8499

== ENCOUNTER 2022-08-15 01:23 | Outpatient (CLI) | payer MEDICARE, OTHER | END 2022-08-15 01:24 | disposition critical access hospital (66) | LOC: EMS 01:23 | DX: R68.83 Chills (without fever) (principal); R35.0 Frequency of micturition; Z99.2 Dependence on renal dialysis | CPT/HCPCS: A0425; A0429 ==

== ENCOUNTER 2022-08-15 01:38 | Emergency (ER) | payer MEDICARE, OTHER ==
[2022-08-15 02:27] LABS: BASOPHILS # (AUTO) 0.1 10^3/uL (0.0-0.1); BASOPHILS % (AUTO) 0.7 %; EOSINOPHILS # (AUTO) 0.3 10^3/uL (0.0-0.7); EOSINOPHILS % (AUTO) 4.3 %; HCT - HEMATOCRIT 34.7 % (37.0-47.0); HGB - HEMOGLOBIN 11.2 g/dL (12.0-16.0); LYMPHOCYTES # (AUTO) 1.6 10^3/uL (1.5-3.5); LYMPHOCYTES % (AUTO) 20.8 %; MEAN CORPUSCULAR HEMOGLOBIN 28.6 pg (27.0-31.0); MEAN CORPUSCULAR HGB CONC 32.3 g/dL (32.0-36.0); MEAN CORPUSCULAR VOLUME 88.7 fL (81.0-99.0); MONOCYTES # (AUTO) 0.4 10^3/uL (0.0-1.0); MONOCYTES % (AUTO) 5.6 %; NEUTROPHILS # (AUTO) 5.1 10^3/uL (1.5-6.6); NEUTROPHILS % (AUTO) 68.2 %; PLT - PLATELET COUNT 231 10^3/uL (130-450); RED BLOOD COUNT 3.91 10^6/uL (4.20-5.40); RED CELL DISTRIBUTION WIDTH 13.2 % (12.0-15.0); WHITE BLOOD COUNT 7.5 x10^3/uL (4.8-10.8)
[2022-08-15 02:39] LABS: ALBUMIN 3.7 g/dL (3.2-5.5); ALBUMIN/GLOBULIN RATIO 0.9 (1.0-2.2); BILIRUBIN,TOTAL 0.7 mg/dL (0.2-1.0); CREATININE 3.9 mg/dL (0.4-1.0); POTASSIUM 3.8 mmol/L (3.5-5.0); TOTAL PROTEIN 7.6 g/dL (6.7-8.2)
[2022-08-15 03:09] LABS: BILIRUBIN,URINE NEGATIVE (NEGATIVE); GLUCOSE, URINE (UA) 100 mg/dL (NEGATIVE); KETONES,URINE (UA) NEGATIVE (NEGATIVE); LEUKOCYTE ESTERASE, URINE NEGATIVE (NEGATIVE); NITRITE,URINE NEGATIVE (NEGATIVE); OCCULT BLOOD,URINE TRACE-INTA (NEGATIVE); PROTEIN,URINE 30 mg/dL (NEGATIVE); UROBILINOGEN,URINE 0.2 (NORMAL) E.U./dL (NORMAL)
[2022-08-15 03:11] LABS: CLARITY,URINE CLEAR (CLEAR)
[2022-08-15 03:18] LABS: RBC,URINE 0-5 /HPF (0-5); WBC,URINE 0-3 /HPF (0-5)
[2022-08-15 03:19] LABS: BACTERIA,URINE Rare /HPF (None Seen); SQUAMOUS EPITHELIAL CELL,UR RARE Squamous (<= Few)
--- NOTE | 2022-08-15 03:25 | ED Physician Documentation ---
History of Present Illness - Stated complaint Stated Complaint: COLD X 2 DAYS, DIALYSIS TODAY - Chief complaint Chief Complaint: General - History obtained from History obtained from: Patient, Family - Additonal information Additional information: Patient is a 72-year-old female presenting for evaluation of feeling cold since her dialysis appointment this evening. Patient returned from dialysis around 7 PM per her has been complaining of feeling cold since then. He took her temperature and it was 99.1. He gave her a dose of Tylenol. She slept for a few hours but then again woke up stating again that she felt cold so he called 911. She denies other symptoms. She finished her dialysis appointment today. She has been compliant with her dialysis. She denies known fever, cough, con gestion, chest pain, difficulty breathing, abdominal pain, vomiting. She does make urine and denies dysuria. 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 : Renal insuffiency HEENT: None Psych: None Musculoskeletal: None Derm: None - Past Surgical History Past Surgical History: Yes Cardiovascular: Other HEENT: Cataracts - Present Medications Home Medications: Ambulatory Orders Medication Instructions Recorded Confirmed Aspirin Chewable [[place] 81 mg PO DAILY #10 tablet 11/28/19 08/12/21 Aspirin] Acetaminophen [Tylenol] 650 mg PO QID PRN 03/07/20 08/12/21 Apixaban [Eliquis] 2.5 mg PO BID 03/07/20 08/12/21 Atorvastatin Calcium 80 mg PO DAILY PM 03/07/20 08/12/21 Citalopram Hydrobromide 10 mg PO DAILY PRN 03/07/20 08/12/21 [Citalopram HBr] Clopidogrel [Plavix] 75 mg PO DAILY 03/07/20 08/12/21 Gabapentin 100 mg PO DAILY PM 03/07/20 08/12/21 Hydralazine HCl 25 mg PO Q6HR PRN 03/07/20 08/12/21 Metoprolol Tartrate 0.5 tab PO BID 03/07/20 08/12/21 Midodrine HCl 5 mg PO QID 03/07/20 08/12/21 Ondansetron [Ondansetron Odt] 4 mg PO Q8HR 03/07/20 08/12/21 Potassium Chloride 10 meq PO BID 03/07/20 08/12/21 Pantoprazole [Protonix] 1 tab PO DAILY 06/15/20 08/12/21 - Allergies Allergies/Adverse Reactions: Allergies Allergy/AdvReac Type Severity Reaction Status Date / Time clonidine Allergy Unknown Verified 03/02/22 20:05 hydralazine Allergy Unknown Verified 08/15/22 01:45 - Social History Does the pt smoke?: No Smoking Status: Never smoker Does the pt drink ETOH?: No Does the pt have substance abuse?: No - Immunizations Immunizations are current?: No - POLST Patient has POLST: No PD ED PE NORMAL - General General: Alert and oriented X 3, No acute distress, Well developed/nourished - HEENT HEENT: Atraumatic, Moist mucous membranes - Neck Neck: Supple, no meningeal sign - Cardiac Cardiac: RRR, Other (Tunneled dialysis catheter to left chest wall, no surroun ding erythema, swelling or abnormal drainage) - Respiratory Respiratory: No respiratory distress, Clear bilaterally - Abdomen Abdomen: Soft, Non tender, Non distended - Derm Derm: Warm and dry - Extremities Extremities: No edema - Neuro Neuro: Alert and oriented X 3, Normal speech, Other (Left-sided hemiparesis from prior stroke). No: No motor deficit Results - Vitals Vitals: Vital Signs - 24 hr 08/15/22 08/15/22 08/15/22 01:45 02:45 04:00 Temperature 36.9 C Heart Rate 94 80 84 Respiratory 13 19 17 Rate Blood Pressure 151/64 H 169/95 H 154/94 H O2 Saturation 98 100 100 Oxygen O2 Source Room air - EKG (time done) 0237 EKG releavant findings:: EKG personally interpreted by author of this note. Relevant findings are: Rate 90, normal sinus rhythm, no STEMI, QTc 437, No peak T waves Rate: Rate (enter#) (90) Rhythm: NSR Intervals: No: Prolonged QT Ischemia: No: ST elevation c/w ischemia - Labs Labs: Laboratory Tests 08/15/22 08/15/22 08/15/22 02:04 02:17 02:17 WBC 7.5 RBC 3.91 L Hgb 11.2 L Hct 34.7 L MCV 88.7 MCH 28.6 MCHC 32.3 RDW 13.2 Plt Count 231 MPV 9.0 Neut # (Auto) 5.1 Lymph # (Auto) 1.6 [place] # (Auto) 0.4 Eos # (Auto) 0.3 Baso # (Auto) 0.1 Absolute Nucleated RBC 0.00 Nucleated RBC % 0.0 Sodium 135 Potassium 3.8 Chloride 98 L Carbon Dioxide 25 Anion Gap 12.0 BUN 26 H Creatinine 3.9 H Estimated GFR (MDRD) 11 L Glucose 100 Lactic Acid Calcium 9.0 Total Bilirubin 0.7 AST 13 ALT 13 Alkaline Phosphatase 89 Total Protein 7.6 Albumin 3.7 Globulin 3.9 Albumin/Globulin Ratio 0.9 L Lipase 79 H Urine Color Urine Clarity Urine pH Ur Specific [place] Urine Protein Urine Glucose (UA) Urine Ketones Urine Occult Blood Urine Nitrite Urine Bilirubin Urine Urobilinogen Ur Leukocyte Esterase Urine RBC Urine WBC Ur Squamous Epith Cells Urine Bacteria Ur Microscopic Review Urine Culture Comments Nasal Adenovirus (PCR) NOT DETECTED Nasal B. parapertussis DNA (PCR) NOT DETECTED Nasal Coronavir 229E PCR NOT DETECTED Nasal Coronavir HKU1 PCR NOT DETECTED Nasal Coronavir NL63 PCR NOT DETECTED Nasal Coronavir OC43 PCR NOT DETECTED Nasal Enterovir/Rhinovir PCR NOT DETECTED Nasal Influenza B PCR NOT DETECTED Nasal Influenza A PCR NOT DETECTED Nasal Parainfluen 1 PCR NOT DETECTED Nasal Parainfluen 2 PCR NOT DETECTED Nasal Parainfluen 3 PCR NOT DETECTED Nasal Parainfluen 4 PCR NOT DETECTED Nasal RSV (PCR) NOT DETECTED Nasal B.pertussis DNA PCR NOT DETECTED Nasal C.pneumoniae (PCR) NOT DETECTED [place] Human Metapneumo PCR NOT DETECTED Nasal M.pneumoniae (PCR) NOT DETECTED Nasal SARS-CoV-2 (PCR) NOT DETECTED 08/15/22 08/15/22 02:17 02:58 WBC RBC Hgb Hct MCV MCH MCHC RDW Plt Count MPV Neut # (Auto) Lymph # (Auto) [place] # (Auto) Eos # (Auto) Baso # (Auto) Absolute Nucleated RBC Nucleated RBC % Sodium Potassium Chloride Carbon Dioxide Anion Gap BUN Creatinine Estimated GFR (MDRD) Glucose Lactic Acid 1.2 Calcium Total Bilirubin AST ALT Alkaline Phosphatase Total Protein Albumin Globulin Albumin/Globulin Ratio Lipase Urine Color YELLOW Urine Clarity CLEAR Urine pH 8.0 H Ur Specific [place] 1.010 Urine Protein 30 H Urine Glucose (UA) 100 H Urine Ketones NEGATIVE Urine Occult Blood TRACE-INTA Urine Nitrite NEGATIVE Urine Bilirubin NEGATIVE Urine Urobilinogen 0.2 (NORMAL) Ur Leukocyte Esterase NEGATIVE Urine RBC 0-5 Urine WBC 0-3 Ur Squamous Epith Cells RARE Squamous Urine Bacteria Rare Ur Microscopic Review INDICATED Urine Culture Comments NOT INDICATED Nasal Adenovirus (PCR) Nasal B. parapertussis DNA (PCR) Nasal Coronavir 229E PCR Nasal Coronavir HKU1 PCR Nasal Coronavir NL63 PCR Nasal Coronavir OC43 PCR Nasal Enterovir/Rhinovir PCR Nasal Influenza B PCR Nasal Influenza A PCR Nasal Parainfluen 1 PCR Nasal Parainfluen 2 PCR Nasal Parainfluen 3 PCR Nasal Parainfluen 4 PCR Nasal RSV (PCR) Nasal B.pertussis DNA PCR Nasal C.pneumoniae (PCR) [place] Human Metapneumo PCR Nasal M.pneumoniae (PCR) Nasal SARS-CoV-2 (PCR) PD Medical Decision Making - ED course Complexity details: reviewed results, re-evaluated patient, d/w patient ED course: Patient presenting for evaluation of feeling cold since returning home from dialysis. There is no documented fever at home and she has been afebrile here. Her vital signs are otherwise stable. She also does not have any other associated symptoms and is feeling better here without any intervention. Labs including blood cultures were obtained. Her white count is normal. Potassium is normal. Creatinine is elevated as expected in a patient on dialysis. Her respiratory panel is negative and urinalysis is negative for infection. I personally reviewed her chest x-ray do not see signs of pneumonia.Patient currently does not appear septic. Her line also is well-appearing with no surrounding erythema or abnormal drainage. Blood cultures are pending. Discussed the case with her public health policy analyst who also agrees that patient can be discharged with plan to follow-up on her blood cultures. Patient is also counseled on continuing with dialysis as scheduled and advised that we will notify her of any abnormal blood culture results. She is also advised on strict return precautions. [id number] - D/W Nephrology marketing content manager for Dr. Samuel (Dr. Mcleod?) - Agrees with plan for discharge with blood cultures pending Departure - Departure Disposition: 01 Home, Self Care Clinical Impression: Generalized weakness, ESRD (end stage renal disease) on dialysis Condition: Stable Instructions: ED Weakness UKO Comments: The exact cause for your symptoms this evening is unclear but your work-up here today is reassuring. Blood cultures are pending. Please continue to attend your dialysis appointments. If for any reason your blood cultures are positive we will notify you immediately and directed back to the emergency department for evaluation. If you develop any worsening symptoms please consider reevaluation in the emergency department.
[2022-08-15 03:45] LABS: B. PARAPERTUSSIS- RESP PCR PAN NOT DETECTED; B. PERTUSSIS- RESP PCR PANEL NOT DETECTED; C. PNEUMONIAE- RESP PCR PANEL NOT DETECTED; CORONAVIRUS 229E-RESP PCR NOT DETECTED; CORONAVIRUS HKU1-RESP PCR NOT DETECTED; CORONAVIRUS NL63-RESP PCR NOT DETECTED; CORONAVIRUS OC43-RESP PCR NOT DETECTED; HUMAN METAPNEUMOVIRUS NOT DETECTED; INFLUENZA A- RESP PCR PANEL NOT DETECTED; INFLUENZA B - RESP PCR PANEL NOT DETECTED; M. PNEUMONIAE- RESP PCR PANEL NOT DETECTED; PARAINFLUENZA VIRUS 1 NOT DETECTED; PARAINFLUENZA VIRUS 2 NOT DETECTED; PARAINFLUENZA VIRUS 3 NOT DETECTED; PARAINFLUENZA VIRUS 4 NOT DETECTED; RHINOVIRUS/ENTEROVIRUS NOT DETECTED; RSV- RESP PCR PANEL NOT DETECTED; SARS-CoV-2 -RESP PCR PANEL NOT DETECTED
[2022-08-15 04:10] VITALS: BP 154/94
--- NOTE | 2022-08-15 08:41 | XRAY Report ---
PROCEDURE: Chest 1 View X-Ray INDICATIONS: chills TECHNIQUE: One view of the chest was acquired. COMPARISON: None. FINDINGS: Patient is rotated. Surgical changes and devices: Large bore catheter with the tip in the right atria. Vascular stent pr ojects over the thoracic inlet. Lungs and pleura: No pleural effusions or pneumothorax. Lungs are clear. Mediastinum: Mediastinal contours appear normal. Heart size is normal. Bones and chest wall: No suspicious bony lesions. Overlying soft tissues appear unremarkable. IMPRESSION: No concerning consolidation. No significant pleural effusion. Reviewed by: Nik Noel MD on 08/15/2022 7:40 AM BALBIR Approved by: Nik Noel MD on 08/15/2022 7:40 AM BALBIR Station ID: [id number]
== END 2022-08-15 03:00 | disposition home or self-care (01) ==
LOC: EDBD → ED 01:38
DX: R53.1 Weakness (principal); I12.0 Hypertensive chronic kidney disease with stage 5 chronic kidney disease or end stage renal disease; E11.22 Type 2 diabetes mellitus with diabetic chronic kidney disease; N18.6 End stage renal disease; E78.00 Pure hypercholesterolemia, unspecified; Z99.2 Dependence on renal dialysis; Z86.73 Personal history of transient ischemic attack (TIA), and cerebral infarction without residual deficits; Z79.82 Long term (current) use of aspirin; Z79.01 Long term (current) use of anticoagulants; Z79.02 Long term (current) use of antithrombotics/antiplatelets; Z79.899 Other long term (current) drug therapy; Z20.822 Contact with and (suspected) exposure to COVID-19
CPT/HCPCS: 36415; 80053; 81001; 81003; 83605; 83690; 85025; 87040; 87086; 87633; 93005; 99284

== ENCOUNTER 2022-09-04 22:11 | Outpatient (CLI) | payer MEDICARE, OTHER | END 2022-09-04 23:59 | disposition EMS.NT | LOC: EMS 22:11 | DX: R50.9 Fever, unspecified (principal) ==

== ENCOUNTER 2022-09-10 14:55 | Outpatient (CLI) | payer MEDICARE, OTHER ==
--- NOTE | 2022-09-10 19:04 | DEXA Report ---
PROCEDURE: Dexa Spine and/or Hip INDICATIONS: POST MENOPAUSAL TECHNIQUE: Dual energy x-ray absorptiometry (DXA) was performed on a [employer] System. Regions measur ed are the AP Spine, femoral neck, and if needed forearm. COMPARISON: None. FINDINGS: Lumbar Spine: Bone Mineral Density 1.035 g/cm/cm,T score -1.2, osteopenia Left Femoral Neck: Bone Mineral Density 0.699 g/cm/cm, T score -2.4, osteopenia Left Hip: Bone Mineral Density 0.751 g/cm/cm,T score -2.0, osteopenia (T score greater or equal to -1.0: NORMAL) (T score from -1.1 to -2.4: OSTEOPENIA) (T score less than or equal to -2.5 to: OSTEOPOROSIS) Impression: Osteopenia Patients with diagnosis of osteoporosis or osteopenia should have regular bone mineral density assess ment. For those eligible for Medicare, routine testing is allowed once every 2 years. Testing frequ ency can be increased for patients who have rapidly progressing disease or for those who are receivin g medical therapy to restore bone mass. Reviewed by: Hong Conti MD on 09/10/2022 6:03 PM BALBIR Approved by: Hong Conti MD on 09/10/2022 6:03 PM BALBIR Station ID: [id number]
== END 2022-09-10 14:56 | disposition home or self-care (01) ==
LOC: DI 14:55
PROVIDERS: ATTEND Nurse Practitioner Family
DX: Z78.0 Asymptomatic menopausal state (principal); M85.89 Other specified disorders of bone density and structure, multiple sites

== ENCOUNTER 2022-10-13 00:59 | Outpatient (CLI) | payer MEDICARE, OTHER | END 2022-10-13 23:59 | disposition critical access hospital (66) | LOC: EMS 00:59 | DX: R06.02 Shortness of breath (principal) | CPT/HCPCS: A0425; A0429 ==

== ENCOUNTER 2022-10-13 01:59 | Emergency (ER) | payer MEDICARE, OTHER ==
--- NOTE | 2022-10-13 02:38 | ED Physician Documentation ---
PD HPI DYSPNEA - Stated complaint Stated Complaint: SOA - Chief complaint Chief Complaint: Resp - History obtained from History obtained from: Patient, EMS - History of Present Illness Timing - onset: Enter time (23:00) - Additional information Additional information: HPI from patient, EMS, and patient's spouse (in ED at bedside). Patient had HD yesterday. Went to sleep this evening feeling well, but woke at approximately 11PM due to dyspnea. Denies cough, fever. Dyspnea has gradually improved en route to ED and nearly resolved by the time of my H+P. Review of Systems Constitutional: denies: Fever, Chills, Sweats Respiratory: reports: Dyspnea. 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 : Renal insuffiency HEENT: None Psych: None Musculoskeletal: None Derm: None - Past Surgical History Past Surgical History: Yes Cardiovascular: Other HEENT: Cataracts - Present Medications Home Medications: Ambulatory Orders Medication Instructions Recorded Confirmed Aspirin Chewable [[place] 81 mg PO DAILY #10 tablet 11/28/19 08/12/21 Aspirin] Acetaminophen [Tylenol] 650 mg PO QID PRN 03/07/20 08/12/21 Apixaban [Eliquis] 2.5 mg PO BID 03/07/20 08/12/21 Atorvastatin Calcium 80 mg PO DAILY PM 03/07/20 08/12/21 Citalopram Hydrobromide 10 mg PO DAILY PRN 03/07/20 08/12/21 [Citalopram HBr] Clopidogrel [Plavix] 75 mg PO DAILY 03/07/20 08/12/21 Gabapentin 100 mg PO DAILY PM 03/07/20 08/12/21 Hydralazine HCl 25 mg PO Q6HR PRN 03/07/20 08/12/21 Metoprolol Tartrate 0.5 tab PO BID 03/07/20 08/12/21 Midodrine HCl 5 mg PO QID 03/07/20 08/12/21 Ondansetron [Ondansetron Odt] 4 mg PO Q8HR 03/07/20 08/12/21 Potassium Chloride 10 meq PO BID 03/07/20 08/12/21 Pantoprazole [Protonix] 1 tab PO DAILY 06/15/20 08/12/21 - Allergies Allergies/Adverse Reactions: Allergies Allergy/AdvReac Type Severity Reaction Status Date / Time clonidine Allergy Unknown Verified 10/13/22 02:16 hydralazine Allergy Unknown Verified 10/13/22 02:16 - Social History Does the pt smoke?: No Smoking Status: Never smoker Does the pt drink ETOH?: No Does the pt have substance abuse?: No - Immunizations Immunizations are current?: No - POLST Patient has POLST: No PD ED PE NORMAL - Vitals Vital signs reviewed: Yes - General General: Alert and oriented X 3, No acute distress, Well developed/nourished - Neck Neck: Supple, no meningeal sign - Cardiac Cardiac: RRR - Respiratory Respiratory: No respiratory distress, Clear bilaterally PD ED PE EXPANDED - Cardiac Cardiac: Other (left chest wall HD catheter noted) Results - Vitals Vitals: Oxygen O2 Source Room air - Labs Labs: Laboratory Tests 10/13/22 10/13/22 10/13/22 03:25 03:25 03:25 WBC 7.4 RBC 3.38 L Hgb 10.6 L Hct 33.0 L MCV 97.6 MCH 31.4 H MCHC 32.1 RDW 15.0 Plt Count 276 MPV 9.1 Neut # (Auto) 5.2 Lymph # (Auto) 1.2 L [place] # (Auto) 0.5 Eos # (Auto) 0.4 Baso # (Auto) 0.1 Absolute Nucleated RBC 0.00 Nucleated RBC % 0.0 Sodium 138 Potassium 3.8 Chloride 100 L Carbon Dioxide 24 Anion Gap 14.0 H BUN 20 Creatinine 4.8 H Estimated GFR (MDRD) 9 L Glucose 102 H Calcium 8.9 Total Bilirubin 0.4 AST 12 ALT 11 Alkaline Phosphatase 69 B-Natriuretic Peptide 46 Total Protein 7.3 Albumin 3.8 Globulin 3.5 Albumin/Globulin Ratio 1.1 Lipase 49 Nasal Adenovirus (PCR) Nasal B. parapertussis DNA (PCR) Nasal Coronavir 229E PCR Nasal Coronavir HKU1 PCR Nasal Coronavir NL63 PCR Nasal Coronavir OC43 PCR Nasal Enterovir/Rhinovir PCR Nasal Influenza B PCR Nasal Influenza A PCR Nasal Parainfluen 1 PCR Nasal Parainfluen 2 PCR Nasal Parainfluen 3 PCR Nasal Parainfluen 4 PCR Nasal RSV (PCR) Nasal B.pertussis DNA PCR Nasal C.pneumoniae (PCR) [place] Human Metapneumo PCR Nasal M.pneumoniae (PCR) Nasal SARS-CoV-2 (PCR) 10/13/22 05:04 WBC RBC Hgb Hct MCV MCH MCHC RDW Plt Count MPV Neut # (Auto) Lymph # (Auto) [place] # (Auto) Eos # (Auto) Baso # (Auto) Absolute Nucleated RBC Nucleated RBC % Sodium Potassium Chloride Carbon Dioxide Anion Gap BUN Creatinine Estimated GFR (MDRD) Glucose Calcium Total Bilirubin AST ALT Alkaline Phosphatase B-Natriuretic Peptide Total Protein Albumin Globulin Albumin/Globulin Ratio Lipase Nasal Adenovirus (PCR) NOT DETECTED Nasal B. parapertussis DNA (PCR) NOT DETECTED Nasal Coronavir 229E PCR NOT DETECTED Nasal Coronavir HKU1 PCR NOT DETECTED Nasal Coronavir NL63 PCR NOT DETECTED Nasal Coronavir OC43 PCR NOT DETECTED Nasal Enterovir/Rhinovir PCR NOT DETECTED Nasal Influenza B PCR NOT DETECTED Nasal Influenza A PCR NOT DETECTED Nasal Parainfluen 1 PCR NOT DETECTED Nasal Parainfluen 2 PCR NOT DETECTED Nasal Parainfluen 3 PCR NOT DETECTED Nasal Parainfluen 4 PCR NOT DETECTED Nasal RSV (PCR) NOT DETECTED Nasal B.pertussis DNA PCR NOT DETECTED Nasal C.pneumoniae (PCR) NOT DETECTED [place] Human Metapneumo PCR NOT DETECTED Nasal M.pneumoniae (PCR) NOT DETECTED Nasal SARS-CoV-2 (PCR) NOT DETECTED - Rads (name of study) chest xray Relevant Findings:: Prelim report reviewed, EMP independent interpretation of test (I reviewed these images and my interpretation is no acute/active disease or abnormality including no evidence of pulmonary edema/effusion, infiltrate), See rad report PD Medical Decision Making - ED course Complexity details: reviewed results, re-evaluated patient, considered differential, d/w patient ED course: NAD throughout ED stay. NSR on monitor. CXR without acute abnormality. No concerning nor diagnostic findings on blood tests: normal WBC (7.4). Mildly low hgb (10.6), lower than previous but comparable to overall baseline. Creatinine 4.8 as expected for this HD patient, normal potassium (3.8). BNP normal (46). Results d/w patient and family at bedside. Symptoms resolved without intervention. Return precautions discussed. Cause of her dyspnea is not apparent at this time. Departure - Departure Disposition: 01 Home, Self Care Clinical Impression: Dyspnea Qualifiers: Dyspnea type: unspecified Qualified Code(s): R06.00 - Dyspnea, unspecified Condition: Good Instructions: ED Dyspnea Shortness of Breath Comments: There were no concerning or diagnostic results on tonight's test, including the chest x-ray, blood tests. Additionally, the nasal swab was tested for several different viruses including COVID and influenza, the result of this test was negative for all of the viruses that were tested. There is no evidence of infection such as pneumonia on your chest x-ray, and your white blood cell count is normal which would argue against any infectious process. The cause of your symptoms is not apparent at this time. Discharge Date/Time: 10/13/22 08:53
[2022-10-13 03:30] LABS: BASOPHILS # (AUTO) 0.1 10^3/uL (0.0-0.1); BASOPHILS % (AUTO) 0.9 %; EOSINOPHILS # (AUTO) 0.4 10^3/uL (0.0-0.7); HGB - HEMOGLOBIN 10.6 g/dL (12.0-16.0); LYMPHOCYTES # (AUTO) 1.2 10^3/uL (1.5-3.5); LYMPHOCYTES % (AUTO) 16.5 %; MEAN CORPUSCULAR HEMOGLOBIN 31.4 pg (27.0-31.0); MEAN CORPUSCULAR HGB CONC 32.1 g/dL (32.0-36.0); MEAN CORPUSCULAR VOLUME 97.6 fL (81.0-99.0); MEAN PLATELET VOLUME 9.1 fL (7.9-10.8); MONOCYTES # (AUTO) 0.5 10^3/uL (0.0-1.0); MONOCYTES % (AUTO) 6.1 %; NEUTROPHILS # (AUTO) 5.2 10^3/uL (1.5-6.6); NEUTROPHILS % (AUTO) 70.7 %; PLT - PLATELET COUNT 276 10^3/uL (130-450); RED BLOOD COUNT 3.38 10^6/uL (4.20-5.40); WHITE BLOOD COUNT 7.4 x10^3/uL (4.8-10.8)
[2022-10-13 03:42] LABS: ALBUMIN 3.8 g/dL (3.2-5.5); ALBUMIN/GLOBULIN RATIO 1.1 (1.0-2.2); BILIRUBIN,TOTAL 0.4 mg/dL (0.2-1.0); CALCIUM 8.9 mg/dL (8.5-10.3); CREATININE 4.8 mg/dL (0.4-1.0); POTASSIUM 3.8 mmol/L (3.5-5.0); TOTAL PROTEIN 7.3 g/dL (6.7-8.2)
[2022-10-13 06:01] LABS: B. PARAPERTUSSIS- RESP PCR PAN NOT DETECTED; B. PERTUSSIS- RESP PCR PANEL NOT DETECTED; C. PNEUMONIAE- RESP PCR PANEL NOT DETECTED; CORONAVIRUS 229E-RESP PCR NOT DETECTED; CORONAVIRUS HKU1-RESP PCR NOT DETECTED; CORONAVIRUS NL63-RESP PCR NOT DETECTED; CORONAVIRUS OC43-RESP PCR NOT DETECTED; HUMAN METAPNEUMOVIRUS NOT DETECTED; INFLUENZA A- RESP PCR PANEL NOT DETECTED; INFLUENZA B - RESP PCR PANEL NOT DETECTED; M. PNEUMONIAE- RESP PCR PANEL NOT DETECTED; PARAINFLUENZA VIRUS 1 NOT DETECTED; PARAINFLUENZA VIRUS 2 NOT DETECTED; PARAINFLUENZA VIRUS 3 NOT DETECTED; PARAINFLUENZA VIRUS 4 NOT DETECTED; RHINOVIRUS/ENTEROVIRUS NOT DETECTED; RSV- RESP PCR PANEL NOT DETECTED; SARS-CoV-2 -RESP PCR PANEL NOT DETECTED
[2022-10-13 08:54] VITALS: BP 180/88
--- NOTE | 2022-10-13 09:51 | XRAY Report ---
PROCEDURE: Chest 2 View X-Ray INDICATIONS: dyspnea TECHNIQUE: 2 views of the chest were acquired. COMPARISON: Chest x-ray 08/15/2022 FINDINGS: Surgical changes and devices: Left-sided central venous catheter is present unchanged. Lungs and pleura: No pleural effusions or pneumothorax. Lungs are clear. Mediastinum: Mediastinal contours appear normal. Heart size is normal. Bones and chest wall: No suspicious bony lesions. Overlying soft tissues appear unremarkable. IMPRESSION: No acute cardiopulmonary process. Reviewed by: Chantal Fletcher MD on 10/13/2022 9:49 AM PDT Approved by: Chantal Fletcher MD on 10/13/2022 9:49 AM PDT Station ID: [id number]
== END 2022-10-13 08:53 | disposition home or self-care (01) ==
LOC: EDUNIT# → ED 01:59
DX: R06.00 Dyspnea, unspecified (principal); I12.0 Hypertensive chronic kidney disease with stage 5 chronic kidney disease or end stage renal disease; E11.22 Type 2 diabetes mellitus with diabetic chronic kidney disease; N18.6 End stage renal disease; Z99.2 Dependence on renal dialysis; E78.00 Pure hypercholesterolemia, unspecified; Z20.822 Contact with and (suspected) exposure to COVID-19; Z79.82 Long term (current) use of aspirin; Z79.01 Long term (current) use of anticoagulants; Z79.02 Long term (current) use of antithrombotics/antiplatelets; Z79.899 Other long term (current) drug therapy
CPT/HCPCS: 36415; 80053; 83690; 83880; 85025; 87633; 99283; 99284

== ENCOUNTER 2022-10-23 18:06 | Outpatient (CLI) | payer MEDICARE, OTHER | END 2022-10-23 23:59 | disposition critical access hospital (66) | LOC: EMS 18:06 | DX: D64.9 Anemia, unspecified (principal); I69.354 Hemiplegia and hemiparesis following cerebral infarction affecting left non-dominant side; Z99.2 Dependence on renal dialysis | CPT/HCPCS: A0425; A0429 ==

== ENCOUNTER 2022-10-23 18:26 | Emergency (ER) | payer MEDICARE, OTHER ==
--- NOTE | 2022-10-23 18:36 | ED Physician Documentation ---
History of Present Illness - Stated complaint Stated Complaint: LOW HGB, WEAKNESS - History obtained from History obtained from: Patient - Additonal information Additional information: 72-year-old woman with history of ESRD on dialysis Wednesday and Wednesday, history of stroke affecting the left side and history of anemia of chronic disease presents with hemoglobin that is been drifting down. Recent lab work accompanies the patient and independent history was taken from the nurse first assist. Over the last month or 2 her hemoglobin has drifted down from about 10-6.8. They actually did a Hemoccult on her stool 2 days ago which was negative. She has required transfusion in the past, last time was about a year ago. PD PAST MEDICAL HISTORY - Past Medical History Cardiovascular: Hypertension, High cholesterol Respiratory: Sleep apnea Neuro: CVA Endocrine/Autoimmune: Type 2 diabetes GI: None TOPOLOGY PROFESSOR: None : Renal insuffiency HEENT: None Psych: None Musculoskeletal: None Derm: None - Past Surgical History Past Surgical History: Yes Cardiovascular: Other HEENT: Cataracts - Present Medications Home Medications: Ambulatory Orders Medication Instructions Recorded Confirmed Aspirin Chewable [[place] 81 mg PO DAILY #10 tablet 11/28/19 08/12/21 Aspirin] Acetaminophen [Tylenol] 650 mg PO QID PRN 03/07/20 08/12/21 Apixaban [Eliquis] 2.5 mg PO BID 03/07/20 08/12/21 Atorvastatin Calcium 80 mg PO DAILY PM 03/07/20 08/12/21 Citalopram Hydrobromide 10 mg PO DAILY PRN 03/07/20 08/12/21 [Citalopram HBr] Clopidogrel [Plavix] 75 mg PO DAILY 03/07/20 08/12/21 Gabapentin 100 mg PO DAILY PM 03/07/20 08/12/21 Hydralazine HCl 25 mg PO Q6HR PRN 03/07/20 08/12/21 Metoprolol Tartrate 0.5 tab PO BID 03/07/20 08/12/21 Midodrine HCl 5 mg PO QID 03/07/20 08/12/21 Ondansetron [Ondansetron Odt] 4 mg PO Q8HR 03/07/20 08/12/21 Potassium Chloride 10 meq PO BID 03/07/20 08/12/21 Pantoprazole [Protonix] 1 tab PO DAILY 06/15/20 08/12/21 - Allergies Allergies/Adverse Reactions: Allergies Allergy/AdvReac Type Severity Reaction Status Date / Time clonidine Allergy Unknown Verified 10/13/22 02:16 hydralazine Allergy Unknown Verified 10/13/22 02:16 - Social History Does the pt smoke?: No Smoking Status: Never smoker Does the pt drink ETOH?: No Does the pt have substance abuse?: No - Immunizations Immunizations are current?: No - POLST Patient has POLST: No PD ED PE NORMAL - Vitals Vital signs reviewed: Yes - General General: Alert and oriented X 3, No acute distress - Cardiac Cardiac: RRR, No murmur - Respiratory Respiratory: No respiratory distress, Clear bilaterally - Abdomen Abdomen: Non tender - Neuro Neuro: Alert and oriented X 3, Normal speech, Other (Contracture of the left upper extremity from prior stroke) Results - Vitals Vitals: Vital Signs - 24 hr 10/23/22 10/23/22 18:35 19:17 Temperature 36.7 C Heart Rate 89 90 Respiratory 16 16 Rate Blood Pressure 150/67 H 138/81 H O2 Saturation 99 98 Oxygen O2 Source Room air - Labs Labs: Laboratory Tests 10/23/22 18:59 Hgb 11.7 L Hct 35.4 L PD Medical Decision Making - ED course ED course: She presents for presumed symptomatic anemia, given the outpatient findings I ordered crossmatch and a hemoglobin. Her hemoglobin was 11.7 here suggesting no need for transfusion. Departure - Departure Disposition: Home, Self Care Clinical Impression: ESRD (end stage renal disease) on dialysis Condition: Good Record reviewed to determine appropriate education?: Yes Comments: Your labs today are much better than they were the other day. Today your hemoglobin is 11.7. As such you do not need a transfusion. Follow-up for dialysis on Wednesday as routine. Return for new or worsening symptoms. Discharge Date/Time: 10/23/22 19:45
[2022-10-23 19:03] LABS: HCT - HEMATOCRIT 35.4 % (37.0-47.0); HGB - HEMOGLOBIN 11.7 g/dL (12.0-16.0)
[2022-10-23 19:18] VITALS: BP 138/81
== END 2022-10-23 19:45 | disposition home or self-care (01) ==
LOC: EDUNIT# → ED 18:26
DX: I12.0 Hypertensive chronic kidney disease with stage 5 chronic kidney disease or end stage renal disease (principal); E11.22 Type 2 diabetes mellitus with diabetic chronic kidney disease; N18.6 End stage renal disease; Z99.2 Dependence on renal dialysis
CPT/HCPCS: 36415; 85014; 85018; 86850; 86900; 86901; 86920; 99283

== ENCOUNTER 2022-10-23 19:48 | Outpatient (CLI) | payer MEDICARE, OTHER | END 2022-10-23 23:59 | disposition home or self-care (01) | LOC: EMS 19:48 | PROVIDERS: ATTEND Emergency Medicine | DX: R53.1 Weakness (principal); Z74.01 Bed confinement status; Z99.2 Dependence on renal dialysis | CPT/HCPCS: A0425; A0428 ==

== ENCOUNTER 2023-05-28 19:17 | Outpatient (CLI) | payer MEDICARE, OTHER | END 2023-05-28 23:59 | disposition short-term general hospital (02) | LOC: EMS 19:17 | DX: R42 Dizziness and giddiness (principal); R11.0 Nausea; I10 Essential (primary) hypertension; Z99.2 Dependence on renal dialysis | CPT/HCPCS: A0425; A0429 ==

== ENCOUNTER 2023-06-05 01:35 | Outpatient (CLI) | payer MEDICARE, OTHER | END 2023-06-05 23:59 | disposition critical access hospital (66) | LOC: EMS 01:35 | DX: R10.13 Epigastric pain (principal); R11.2 Nausea with vomiting, unspecified; R19.7 Diarrhea, unspecified | CPT/HCPCS: A0425; A0429 ==

== ENCOUNTER 2023-06-05 01:51 | Emergency (ER) | payer MEDICARE, OTHER ==
--- NOTE | 2023-06-05 01:51 | ED Physician Documentation ---
PD HPI ABD PAIN - Stated complaint Stated Complaint: ABD PAIN - History obtained from History obtained from: Patient - Additional information Additional information: Patient is a poor historian; her answers are frequently vague, and she repe atedly defers to her regarding most of the questions that I asked. Thus, HPI is partially from patient but significant contribution is from patient's (in ED at patient's bedside). BIBA. Patient complains of abdominal pain, across upper abdomen but predominantly right upper quadrant and epigastric. Onset of pain was at approximately 7 PM tonight, shortly after eating dinner. This pain is associate with nausea and vomiting, as well. The pain waxes and wanes, without apparent exacerbating or ameliorating factors. The patient was inpatient at [facility] from May 29 to June 01 for these symptoms.Between the patient and the patient's , it is unclear as to what the final diagnosis was; the patient has discharge instructions with her which indicate she was seen for abdominal pain, but the discharge instructions are generic abdominal pain instructions and do not make mention of any 1 specific diagnosis. The patient's says that initially there was concerned that she had an "inflamed gallbladder" (per ) but further testing ruled this out. He says she is being referred to a vascular surgeon due to some finding on CT regarding a possible vascular problem. Her PMHx includes renal artery stent, coronary artery stents and says a stent was also placed in her neck for vascular issues. She gets hemodialysis M/W/F. Review of Systems Constitutional: denies: Fever, Chills, Sweats Cardiac: reports: Reviewed and negative Respiratory: reports: Reviewed and negative GI: reports: Abdominal Pain, Nausea, Vomiting PD PAST MEDICAL HISTORY - Past Medical History Past Medical History: Yes Cardiovascular: Hypertension, High cholesterol, Coronary artery disease, Atrial fibrillation Neuro: CVA Endocrine/Autoimmune: Type 2 diabetes : Dialysis - Present Medications Home Medications: Ambulatory Orders Medication Instructions Recorded Confirmed Aspirin Chewable [[place] 81 mg PO DAILY #10 tablet 11/28/19 08/12/21 Aspirin] Acetaminophen [Tylenol] 650 mg PO QID PRN 03/07/20 08/12/21 Apixaban [Eliquis] 2.5 mg PO BID 03/07/20 08/12/21 Atorvastatin Calcium 80 mg PO DAILY PM 03/07/20 08/12/21 Citalopram Hydrobromide 10 mg PO DAILY PRN 03/07/20 08/12/21 [Citalopram HBr] Clopidogrel [Plavix] 75 mg PO DAILY 03/07/20 08/12/21 Gabapentin 100 mg PO DAILY PM 03/07/20 08/12/21 Hydralazine HCl 25 mg PO Q6HR PRN 03/07/20 08/12/21 Metoprolol Tartrate 0.5 tab PO BID 03/07/20 08/12/21 Midodrine HCl 5 mg PO QID 03/07/20 08/12/21 Ondansetron [Ondansetron Odt] 4 mg PO Q8HR 03/07/20 08/12/21 Potassium Chloride 10 meq PO BID 03/07/20 08/12/21 Pantoprazole [Protonix] 1 tab PO DAILY 06/15/20 08/12/21 Famotidine [Pepcid] 20 mg PO DAILY #20 tablet 06/05/23 HYDROcod/ACETAM 5/325 [[place] 5/325] 1 ea PO Q6H PRN #18 tablet 06/05/23 - Allergies Allergies/Adverse Reactions: Allergies Allergy/AdvReac Type Severity Reaction Status Date / Time clonidine Allergy Unknown Verified 10/13/22 02:16 hydralazine Allergy Unknown Verified 10/13/22 02:16 PD ED PE NORMAL - Vitals Vital signs reviewed: Yes - General General: Alert and oriented X 3, Well developed/nourished, Other (appears to be in waxing and waning painful distress) - HEENT HEENT: Moist mucous membranes - Cardiac Cardiac: RRR - Respiratory Respiratory: No respiratory distress, Clear bilaterally - Abdomen Abdomen: Soft, Non distended, Other (mild TTP RUQ and epigastrium without rebound or guarding) - Derm Derm: No rash PD ED PE EXPANDED - Cardiac Cardiac: Murmur Present (2/6 RAHUL right second ICS) Results - Vitals Vitals: Vital Signs - 24 hr 06/05/23 06/05/23 06/05/23 08:34 10:00 14:00 Temperature Heart Rate 84 77 75 Respiratory 18 14 18 Rate Blood Pressure 188/87 H 180/82 H 195/95 H O2 Saturation 95 96 96 06/05/23 06/05/23 15:29 16:35 Temperature 36.8 C Heart Rate 70 78 Respiratory 15 16 Rate Blood Pressure 189/88 H 180/78 H O2 Saturation 98 99 Oxygen O2 Source Room air - EKG (time done) No standard instances EKG releavant findings:: EKG personally interpreted by author of this note. Relevant findings are: Rate: Rate (enter#) (80) Rhythm: NSR [place]: LAD Intervals: Prolonged TN QRS: LVH Ischemia: Normal ST segments Other comments: Other comments (PVC) - Labs Labs: Laboratory Tests 06/05/23 06/05/23 02:28 02:28 WBC 12.4 H RBC 4.13 L Hgb 11.6 L Hct 36.9 L MCV 89.3 MCH 28.1 MCHC 31.4 L RDW 14.3 Plt Count 317 MPV 10.2 Neut # (Auto) 8.4 H Lymph # (Auto) 1.5 [place] # (Auto) 0.5 Eos # (Auto) 1.8 H Baso # (Auto) 0.1 Absolute Nucleated RBC 0.00 Nucleated RBC % 0.0 Manual Slide Review Indicated Platelet Estimate NORMAL (130-450,000) Platelet Morphology NORMAL APPEARANCE Sodium 135 Potassium 3.7 Chloride 97 L Carbon Dioxide 26 Anion Gap 12.0 BUN 18 Creatinine 6.5 H Estimated GFR (MDRD) 6 L Glucose 116 H Calcium 9.2 Total Bilirubin 0.5 AST 48 H ALT 26 Alkaline Phosphatase 60 Troponin I High Sens 20.3 H* Total Protein 7.3 Albumin 4.1 Globulin 3.2 Albumin/Globulin Ratio 1.3 Lipase 144 H - Rads (name of study) CT A/P Relevant Findings:: Prelim report reviewed, See rad report PD Medical Decision Making - ED course Complexity details: reviewed old records (Records from inpatient stay at [facility] were requested, faxed to me and reviewed by me.), reviewed results, re-evaluated patient, considered differential, d/w patient ED course: Patient presents with recurrence of right upper quadrant and epigastric pain for which she was recently evaluated in the inpatient setting at [facility]. Records from that visit indicate CT of the abdomen pelvis (performed both without contrast as well as a CT angio) revealed gallbladder dilatation with gallstones and gallbladder sludge. There was a suspicion of cholecystitis; however, a HIDA scan was performed and interpreted as "normal filling of the gallbladder. No evidence of acute cholecystitis. Low gallbladder ejection fraction of 4 percent." The CTA A/P was interpreted as "zjge-sd-brdpxaxs stenosis in the mesenteric and renal arteries... no acute thrombus". Few abnormalities on blood tests which are non-contributory. BUN 18 with creatinine 6.5, consistent with known renal failure (patient is a hemodialysis patient). Mild leukocytosis noted (WBC 12.4). Liver function tests are normal except for a minimally elevated AST (48), mildly elevated lipase (144). Patient is given 0.5 mg Dilaudid IV with good effect; on reevaluation, she is sleeping. When woken, she reports good symptom relief. Later in ED stay, she did require a second dose of 0.5 mg Dilaudid IV, which again had good effect for analgesia. She had resolution of n/v with 4mg IV zofran. CT of the abdomen and pelvis without contrast again demonstrates gallbladder dilatation, gallstones, and gallbladder sludge. An ultrasound of the right upper quadrant is ordered; this is pending at the end of my shift, and thus care of patient is turned over to the oncoming ED physician (Dr. Cardoza). Departure - Departure Disposition: 01 Home, Self Care Clinical Impression: Right upper quadrant abdominal pain, Acute cholecystitis, Dialysis patient, Vascular disease Condition: Stable Follow-Up: Gayathri Logan MD [Physician No Access] - Prescriptions: HYDROcod/ACETAM 5/325 [[place] 5/325] 1 ea PO Q6H PRN #18 tablet PRN Reason: Pain Famotidine [Pepcid] 20 mg PO DAILY #20 tablet Comments: Frequent fluids. Avoid fatty foods. Have mostly clear liquids for the next couple of days. Continue your other usual medicines. Add Lodine acid reducing medicine daily for the next week or 2. It does look like your gallbladder is having inflammation and is likely the cause of your pain based on the location and the persistence of it. I did talk with Dr. Logan who is on-call for surgery in [facility], who wanted to see you in the office early this coming week. Call Wednesday morning for an appointment and let them know you are seen in the ER and we did talk to the surgeon wants a quick follow-up. Meanwhile you can use Tylenol 500 to 650 mg every 4-6 hours if needed for pain or hydrocodone/acetaminophen if needed for worse pain. Return to an ER if needed. As we are unable to do surgery on you here because of your renal failure/dialysis etc., if you do need to go to an ER, it could make sense to go to [facility]. However we are certainly happy to see you at our ER to give medication and assessment and facilitate transfer if needed. I am prescribing a short course of narcotic pain medication for you. These are potentially dangerous and addictive medications that should be used carefully. These medications may constipate you. Take an nkcu-lmm-okliiax stool softener such as docusate twice daily with plenty of water while taking these medications. If you go 24 hours without a bowel movement, take [id number] MiraLAX, per package instructions. Do not drink or drive while taking these medications. If you received narcotic or sedating medications while in the emergency department do not drive for 24 hours. Store this medication in a safe, secure place and out of reach of children. It is a violation of federal law to give or sell this medication to another person or to use in a manner other than prescribed. The ED will not refill narcotic prescriptions, including prescriptions lost or stolen. You can dispose of unwanted medications at the [facility]'s office or at several pharmacies such as [facility]. Dialysis Wednesday as scheduled. Forms: PCP List Discharge Date/Time: 06/05/23 16:36
[2023-06-05] MEDS ORDERED: HYDROmorphone 1 MG/ML CARPUJECT IVP STA ×4 (02:11→13:07)
[2023-06-05] MEDS ORDERED: ONDANSETRON 4 MG/2 ML VIAL IVP STA ×2 (02:11→13:27)
[2023-06-05 02:50] LABS: BASOPHILS # (AUTO) 0.1 10^3/uL (0.0-0.1); BASOPHILS % (AUTO) 0.5 %; EOSINOPHILS # (AUTO) 1.8 10^3/uL (0.0-0.7); EOSINOPHILS % (AUTO) 14.6 %; HCT - HEMATOCRIT 36.9 % (37.0-47.0); HGB - HEMOGLOBIN 11.6 g/dL (12.0-16.0); LYMPHOCYTES # (AUTO) 1.5 10^3/uL (1.5-3.5); LYMPHOCYTES % (AUTO) 12.2 %; MEAN CORPUSCULAR HEMOGLOBIN 28.1 pg (27.0-31.0); MEAN CORPUSCULAR HGB CONC 31.4 g/dL (32.0-36.0); MEAN CORPUSCULAR VOLUME 89.3 fL (81.0-99.0); MEAN PLATELET VOLUME 10.2 fL (7.9-10.8); MONOCYTES # (AUTO) 0.5 10^3/uL (0.0-1.0); MONOCYTES % (AUTO) 3.9 %; NEUTROPHILS # (AUTO) 8.4 10^3/uL (1.5-6.6); NEUTROPHILS % (AUTO) 67.9 %; PLT - PLATELET COUNT 317 10^3/uL (130-450); RED BLOOD COUNT 4.13 10^6/uL (4.20-5.40); RED CELL DISTRIBUTION WIDTH 14.3 % (12.0-15.0); WHITE BLOOD COUNT 12.4 x10^3/uL (4.8-10.8)
[2023-06-05 02:52] LABS: ALBUMIN 4.1 g/dL (3.2-5.5)
[2023-06-05 03:08] LABS: ALBUMIN/GLOBULIN RATIO 1.3 (1.0-2.2); BILIRUBIN,TOTAL 0.5 mg/dL (0.2-1.0); CALCIUM 9.2 mg/dL (8.5-10.3); POTASSIUM 3.7 mmol/L (3.5-4.5); TOTAL PROTEIN 7.3 g/dL (6.4-8.9); TROPONIN I HIGH SENSITIVITY 20.3 ng/L (2.3-14.8)
[2023-06-05 03:35] LABS: SLIDE REVIEW? Indicated
[2023-06-05 03:54] LABS: PLATELET ESTIMATE, MANUAL NORMAL (130-450,000) (NORMAL); PLATELET MORPHOLOGY NORMAL APPEARANCE (NORMAL)
[2023-06-05 04:31] LABS: CREATININE 6.5 mg/dL (0.6-1.3)
--- NOTE | 2023-06-05 08:47 | Ultrasound Report ---
PROCEDURE: Abdomen Limited INDICATIONS: abd. pain TECHNIQUE: Real-time focused scanning was performed of the abdomen, with image documentation. COMPARISONS: None. FINDINGS: Liver: Liver is normal in size and heterogeneous in echotexture. Gallbladder: Distended gallbladder containing multiple stones. The gallbladder wall is thickened and there is trace pericholecystic fluid. Sonographic Walker's sign unable to be assessed. Biliary ducts: Intrahepatic bile ducts are non-dilated. Extrahepatic bile duct caliber measures 6 m m. Normal is 6-7 mm or less in diameter, or 10 mm or less post-cholecystectomy. Pancreas: Visualized portions of the pancreas are sonographically normal. Right kidney: Normal in size and echotexture. Right kidney measures 9.1 cm long. No hydronephrosis o r nephrolithiasis. No solid masses. No complex renal cystic lesions which require follow-up. IVC: Intrahepatic inferior vena cava is patent. IMPRESSION: Cholelithiasis with sonographic evidence of acute cholecystitis. Preliminary report given to ordering provider by the trailers and motor homes salesperson at time of imaging completion. Reviewed by: sAuncion Nash MD on 06/05/2023 8:46 AM PST Approved by: Asuncion Nash MD on 06/05/2023 8:46 AM PST Station ID: [id number]
[2023-06-05] MEDS ORDERED: KETOROLAC 15 MG/ML VIAL IVP STA (09:52)
--- NOTE | 2023-06-05 11:31 | CT Report ---
PROCEDURE: Abdomen/Pelvis WO INDICATIONS: epigastric pain TECHNIQUE: A CT scan of the abdomen and pelvis was performed without the use of intravenous contrast. Images we re recorded and evaluated at appropriate window settings. Reformats: coronal and sagittal. For radiat ion dose reduction, the following was used: automated exposure control, adjustment of mA and/or kV ac cording to patient size. COMPARISON: Prior abdomen pelvis CT, 09/29/2018. Correlation is made with the accompanying ultrasound. FINDINGS: Image quality: Excellent. Lung bases and heart: Minimal presumed atelectasis can be seen dependently at the left lung base. At least moderate coronary calcification can be seen. A small hiatal hernia is incidentally noted. Liver: No contour-deforming mass. Gallbladder and biliary tree: Gallstones are seen, which are better demonstrated on the accompanying ultrasound. Pericholecystic fluid is seen. Spleen: No splenomegaly. Pancreas: No pancreatic ductal dilation. Adrenals: No adrenal nodule. Kidneys and ureters: There is a 2 mm nonobstructing right-sided kidney stone. Calcifications can also be seen involving the hilum of both kidneys, which are most likely related to vascular calcification s. No hydronephrosis. No renal cystic lesion which requires follow up. No solid mass. Bowel and peritoneum: No bowel distension. No pathologic free fluid. Lymph nodes: No central or retroperitoneal adenopathy. Vessels: No infrarenal aortic aneurysm. Atherosclerotic calcification is seen. PELVIS Reproductive organs: At least one calcified uterine fibroid can be seen. No adnexal masses are seen o n either side. Bladder: No wall thickness, accounting for underdistention. Pelvic lymph nodes: No pelvic adenopathy by size criteria. Bones: No aggressive osseous abnormality. Age-appropriate degenerative changes are seen. Other: No significant ventral or inguinal hernia. IMPRESSION: 2 mm obstructing right-sided kidney stone. Negative for hydronephrosis on either side. Gallstones are seen, with pericholecystic fluid. Additional findings: At least moderate coronary artery calcification Small hiatal hernia Vascular calcifications of both kidneys Calcified uterine fibroid Note: No significant discrepancy from the preliminary report. Reviewed by: Tal Brito MD on 06/05/2023 10:30 AM [facility] Approved by: Tal Brito MD on 06/05/2023 10:30 AM [facility] Station ID: [id number]
[2023-06-05] MEDS ORDERED: MAG HYDROX/AL HYDROX/SIMETH 30 ML UDC PO STA (13:07)
[2023-06-05] MEDS ORDERED: FAMOTIDINE 20 MG TABLET PO STA (13:07)
--- NOTE | 2023-06-05 13:11 | ED Physician Documentation ---
ED Addendum - Addendum Addendum: 06/05/23 13:07 Recheck of the patient after ultrasound was still showing some right upper quadrant epigastric area tenderness. No guarding or percussion tenderness. The ultrasound report was showing distended gallbladder with some gallstones and sludge and wall thickening and some pericholecystic fluid. This sounds similar to report from [facility] from 05/29/2023. That did show those findings. She did have a HIDA scan actually done as well that showed normal filling of the gallbladder but a low gallbladder ejection fraction of 4%. There was findings on the CT of some stenosis of the mesenteric vessel up to 70% I believe. Is trying to find the previous report I looked at. Her symptoms sound more likely gallbladder. Her pain is moderated and minimal without any acute abdomen on exam at this time. I talked with our surgeon here, Dr. Viramontes, who did state the patient was not a candidate for any surgery here because of her dialysis and prior heart problems etc. we would not have the ability to take care of her postoperatively and anesthesia. I did not want the patient to have less than a tight follow-up and they do have an appointment with her primary care next week. However think this needed more sooner attention. I called and talked with Dr. Logan who is on-call for [facility]. I reviewed the findings and course and her feeling was the patient was likely going to need gallbladder surgery. They should call the office Wednesday and let them know they were seen here in the ER for an expedited follow-up appointment this coming week. I will prescribe the patient some pain medicine and a H2 maggie as well. To return to an ER if they have worsening symptoms. Given the follow-ups through [facility] area, I did suggest to the patient's that if they need to come back to an ER, they are perfectly welcome to come back to ours but it may be more logical to go to [facility]. Disposition: The patient discharged home in stable condition Diagnoses: 1. Upper abdominal pain semiacute 2. Cholecystitis by ultrasound 3. Renal failure on dialysis 4. History of vascular disease
[2023-06-05 16:41] VITALS: BP 180/78; O2SAT 99
== END 2023-06-05 16:36 | disposition home or self-care (01) ==
LOC: EDUNIT# → ED 01:51
DX: K81.0 Acute cholecystitis (principal); I48.91 Unspecified atrial fibrillation; Z99.2 Dependence on renal dialysis; I10 Essential (primary) hypertension; E11.22 Type 2 diabetes mellitus with diabetic chronic kidney disease; I12.0 Hypertensive chronic kidney disease with stage 5 chronic kidney disease or end stage renal disease; N18.6 End stage renal disease; Z79.01 Long term (current) use of anticoagulants
CPT/HCPCS: 36415; 74176; 76705; 80053; 83690; 84484; 85025; 93005; 96374; 96375; 96376; 99284; 99285; A9270; J1170

== ENCOUNTER 2023-06-05 19:06 | Outpatient (CLI) | payer MEDICARE, OTHER | END 2023-06-05 23:59 | disposition EMS.NT | LOC: EMS 19:06 | DX: R11.2 Nausea with vomiting, unspecified (principal); R10.84 Generalized abdominal pain; I10 Essential (primary) hypertension ==

== ENCOUNTER 2023-06-09 03:37 | Outpatient (CLI) | payer MEDICARE, OTHER | END 2023-06-09 03:38 | disposition critical access hospital (66) | LOC: EMS 03:37 | DX: K81.9 Cholecystitis, unspecified (principal) | CPT/HCPCS: A0425; A0429 ==

== ENCOUNTER 2023-06-09 03:54 | Emergency (ER) | payer MEDICARE, OTHER ==
--- NOTE | 2023-06-09 04:11 | ED Physician Documentation ---
PD HPI ABD PAIN - Stated complaint Stated Complaint: RUQ PX - History obtained from History obtained from: Patient, Family, EMS - History of Present Illness Timing - onset: How many weeks ago (about 3 weeks of pain to upper abd/RUQ with poor appetite and nausea. Seen at [facility] with eval by CT/US and also HIDA scan. US showed gallstones, thickened wall and some surrounding fluid. HIDA though showed no acute cholecystitis but low EF4%. Discharged with pain meds. 06/09.) Recently seen: Emergency Dept (seen [facility] Apr, and [facility] 06/05 with similar pains, tonight similar. Had US and labs again with again showing GB wall thickening and pericholcystic fluid. Due to her renal failure/dialysis, not a surgical candidate here. I had talked with Dr. Logan 06/05, pt was to call on 06/07). No: Clinic ( did not call surgery office on Wednesday, but instead went to PCP, who ordered repeat labs. Missed dialysis 2 days ago due to abd pain and not feeling well. Has had continued pain despite oxycodone PO and Zofran.) Review of Systems Constitutional: denies: Fever, Chills PD PAST MEDICAL HISTORY - Past Medical History Cardiovascular: Hypertension, High cholesterol, Coronary artery disease, Atrial fibrillation Respiratory: Sleep apnea Neuro: CVA Endocrine/Autoimmune: Type 2 diabetes GI: None [employer]: None : Dialysis HEENT: None Psych: None Musculoskeletal: None Derm: None - Past Surgical History Past Surgical History: Yes Cardiovascular: Other HEENT: Cataracts - Present Medications Home Medications: Ambulatory Orders Medication Instructions Recorded Confirmed Aspirin Chewable [[place] 81 mg PO DAILY #10 tablet 11/28/19 06/09/23 Aspirin] Acetaminophen [Tylenol] 650 mg PO QID PRN 03/07/20 06/09/23 Apixaban [Eliquis] 2.5 mg PO BID 03/07/20 06/09/23 Citalopram Hydrobromide 10 mg PO DAILY PRN 03/07/20 08/12/21 [Citalopram HBr] Gabapentin 100 mg PO DAILY PM 03/07/20 08/12/21 Hydralazine HCl 25 mg PO Q6HR PRN 03/07/20 08/12/21 Ondansetron [Ondansetron Odt] 4 mg PO Q8HR 03/07/20 08/12/21 Potassium Chloride 10 meq PO BID 03/07/20 08/12/21 HYDROcod/ACETAM 5/325 [Lannon 5/325] 1 ea PO Q6H PRN #18 tablet 06/05/23 Ropinirole HCl 06/09/23 Rosuvastatin Calcium [Crestor] 10 mg PO DAILY 06/09/23 06/09/23 Sertraline [Zoloft] 25 mg PO DAILY 06/09/23 06/09/23 carvediloL [Coreg] 12.5 mg PO BID 06/09/23 06/09/23 - Allergies Allergies/Adverse Reactions: Allergies Allergy/AdvReac Type Severity Reaction Status Date / Time clonidine Allergy Unknown Verified 06/09/23 05:19 hydralazine Allergy Unknown Verified 06/09/23 05:19 - Social History Does the pt smoke?: No Smoking Status: Never smoker Does the pt drink ETOH?: No Does the pt have substance abuse?: No - Immunizations Immunizations are current?: No - POLST Patient has POLST: No PD ED PE NORMAL - Vitals Vital signs reviewed: Yes (BP initial low at 89 systolic, improves with IV fluids. ) - General General: Alert and oriented X 3, Well developed/nourished, Other (appears in pain on initial presentation but lessens after arrival. ) - HEENT HEENT: Pharynx benign. No: Moist mucous membranes - Neck Neck: Supple, no meningeal sign, No adenopathy - Cardiac Cardiac: RRR, No murmur - Respiratory Respiratory: No respiratory distress, Clear bilaterally - Abdomen Abdomen: Normal bowel sounds, Soft, Non distended, No organomegaly, Other (tender iwth guarding RUQ. ) - Back Back: No CVA TTP - Derm Derm: Normal color, Warm and dry - Extremities Extremities: No calf tenderness / cord, Other (mild edema. ) - Neuro Neuro: Alert and oriented X 3, No motor deficit, Normal speech Results - Vitals Vitals: Vital Signs - 24 hr 06/09/23 06/09/23 06/09/23 04:01 04:11 06:11 Temperature 36.3 C L Heart Rate 76 79 86 Respiratory 12 12 15 Rate Blood Pressure 86/58 L 102/79 O2 Saturation 94 92 95 If not protocol 2 : Oxygen Flow, liters/minute Oxygen O2 Source Nasal cannula - Labs Labs: Laboratory Tests 06/09/23 06/09/23 06/09/23 04:29 04:29 04:29 WBC 19.6 H RBC 3.25 L Hgb 9.3 L Hct 29.8 L MCV 91.7 MCH 28.6 MCHC 31.2 L RDW 15.5 H Plt Count 255 MPV 11.3 H Neut # (Auto) Not Reportable Lymph # (Auto) Not Reportable Amite # (Auto) Not Reportable Eos # (Auto) Not Reportable Baso # (Auto) Not Reportable Absolute Nucleated RBC Not Reportable Total Counted 100 Band Neuts % (Manual) 3 Abnorm Lymph % (Manual) 0 Nucleated RBC % Not Reportable Neutrophils # (Manual) 17.8 H Lymphocytes # (Manual) 1.2 L Monocytes # (Manual) 0.4 Eosinophils # (Manual) 0.0 Basophils # (Manual) 0.2 H Differential Comment MANUAL DIFFERENTIAL Platelet Estimate NORMAL (130-450,000) RBC Morph Micro Appear NORMAL APPEARANCE Sodium 133 L Potassium 4.4 Chloride 95 L Carbon Dioxide 23 Anion Gap 15.0 H BUN 75 H Creatinine 13.1 H* Estimated GFR (MDRD) 3 L Glucose 101 Lactic Acid Calcium 8.6 Phosphorus 8.2 H Magnesium 2.2 Total Bilirubin 0.7 AST 237 H ALT 136 H Alkaline Phosphatase 309 H B-Natriuretic Peptide 372 H Total Protein 5.9 L Albumin 2.9 L Globulin 3.0 Albumin/Globulin Ratio 1.0 Lipase 24 06/09/23 04:48 WBC RBC Hgb Hct MCV MCH MCHC RDW Plt Count MPV Neut # (Auto) Lymph # (Auto) Amite # (Auto) Eos # (Auto) Baso # (Auto) Absolute Nucleated RBC Total Counted Band Neuts % (Manual) Abnorm Lymph % (Manual) Nucleated RBC % Neutrophils # (Manual) Lymphocytes # (Manual) Monocytes # (Manual) Eosinophils # (Manual) Basophils # (Manual) Differential Comment Platelet Estimate RBC Morph Micro Appear Sodium Potassium Chloride Carbon Dioxide Anion Gap BUN Creatinine Estimated GFR (MDRD) Glucose Lactic Acid 0.8 Calcium Phosphorus Magnesium Total Bilirubin AST ALT Alkaline Phosphatase B-Natriuretic Peptide Total Protein Albumin Globulin Albumin/Globulin Ratio Lipase PD Medical Decision Making - ED course Complexity details: considered differential, d/w patient ED course: The patient has persistent pain in the right upper quadrant most likely related to acute cholecystitis/subacute cholecystitis that has been bothering her now for about 2 and half weeks. Indications on ultrasounds twice had been cholecystitis changes. Due to the patient's comorbidities with dialysis and heart disease etc., the patient is not a surgical candidate for here at [facility]. She was here 4 days ago which was on a Wednesday and had her pain improved enough to be able to be treated outpatient at that time. There were no beds available acutely anyway at surrounding hospitals. The on-call surgeon at [facility], Dr. Logan was amenable to follow-up with the patient and would pr esumably schedule her promptly for outpatient gallbladder surgery Wednesday or Wednesday. The patient was to get dialysis on Wednesday and call the surgical office for an appointment that day or Wednesday and presumably would get expedited surgical intervention. However the patient's and did not call the surgical office but instead the primary care office who just ordered outpatient labs for today. The patient did not feel well enough to go to dialysis and so missed that on Wednesday. She would be due for it again on Wednesday as she only gets it twice weekly. The pain has been enough that she is not taken usual medicines and has not eaten or drink much fluids in the last 2 days. The creatinine is significantly elevated but her electrolytes including potassium are in the normal range. Her white count is elevated as are some LFTs. We can get an ultrasound again today but really she needs to be transferred for both dialysis and presumed cholecystitis and cholecystectomy. I did give a dose of piperacillin for presumed infection starting. At this point she had taken an oral pain medicine shortly before coming here and is sedate. I did not give any pain medicine for that reason. When she does need more we will watch the blood pressure which had been a little bit low but is improved with some fluids. At this point I think her blood pressure is adequate to allow for pain medicine if needed. She is given a small amount of fluid bolusing to improve on her blood pressure which it has done. Her lactate is normal even though her white count is elevated and she does not have a fever. I think the blood pressure was from under hydration and not from sepsis. At this point we are looking at [facility] for transfer as the patient's first choice. They are anticipating beds after discharges this morning. If that is not true then we can expand the search to other hospitals. Care is given over to Dr. Rivera the oncoming physician. Departure - Departure Disposition: 02 Transfer Acute Care Hosp Forms: PCP List
[2023-06-09 04:34] LABS: BASOPHILS % (AUTO) 0.4 %; EOSINOPHILS % (AUTO) 0.1 %; HCT - HEMATOCRIT 29.8 % (37.0-47.0); HGB - HEMOGLOBIN 9.3 g/dL (12.0-16.0); LYMPHOCYTES % (AUTO) 4.1 %; MEAN CORPUSCULAR HEMOGLOBIN 28.6 pg (27.0-31.0); MEAN CORPUSCULAR HGB CONC 31.2 g/dL (32.0-36.0); MEAN CORPUSCULAR VOLUME 91.7 fL (81.0-99.0); MEAN PLATELET VOLUME 11.3 fL (7.9-10.8); MONOCYTES % (AUTO) 4.9 %; NEUTROPHILS % (AUTO) 84.9 %; PLT - PLATELET COUNT 255 10^3/uL (130-450); RED BLOOD COUNT 3.25 10^6/uL (4.20-5.40); RED CELL DISTRIBUTION WIDTH 15.5 % (12.0-15.0); WHITE BLOOD COUNT 19.6 x10^3/uL (4.8-10.8)
[2023-06-09 04:37] LABS: ABNORMAL LYMPHS % (MANUAL) 0 %
[2023-06-09 04:51] LABS: ALBUMIN 2.9 g/dL (3.2-5.5); MAGNESIUM 2.2 mg/dL (1.7-2.3); PHOSPHORUS 8.2 mg/dL (2.5-5.0)
[2023-06-09 05:00] LABS: BAND NEUTROPHILS % (MANUAL) 3 %; BASOPHILS # (MANUAL) 0.2 10^3/uL (0-0.1); BASOPHILS % (MANUAL) 1 %; DIFFERENTIAL COMMENT MANUAL DIFFERENTIAL; LYMPHOCYTES # (MANUAL) 1.2 10^3/uL (1.5-3.5); LYMPHOCYTES % (MANUAL) 6 %; MONOCYTES # (MANUAL) 0.4 10^3/uL (0.0-1.0); NEUTROPHILS # (MANUAL) 17.8 10^3/uL (1.5-6.6); PLATELET ESTIMATE, MANUAL NORMAL (130-450,000) (NORMAL); RBC MORPHOLOGY (MULTIPLE) NORMAL APPEARANCE (NORMAL)
[2023-06-09 05:01] LABS: BILIRUBIN,TOTAL 0.7 mg/dL (0.2-1.0); CALCIUM 8.6 mg/dL (8.5-10.3); CREATININE 13.1 mg/dL (0.6-1.3); POTASSIUM 4.4 mmol/L (3.5-4.5); TOTAL PROTEIN 5.9 g/dL (6.4-8.9)
[2023-06-09] MEDS: ONDANSETRON 4 MG/2 ML VIAL IVP STA (05:08)
[2023-06-09] MEDS: SODIUM CHLORIDE 0.9% 500 ML IV STA (05:09)
[2023-06-09] MEDS: ACETAMINOPHEN 1,000 MG/100 ML 1,000 MG/100 ML BAG IV ONE (05:10)
[2023-06-09] MEDS: PIPERACILLIN/TAZOBACTAM 3.375 GM in SODIUM CHLORIDE 0.9% MINIBAG 100 ML IV STA (06:13)
[2023-06-09] MEDS: SODIUM CHLORIDE 0.9% 1,000 ML IV STA (07:28)
[2023-06-09] MEDS: fentaNYL 100 MCG/2 ML VIAL IVP STA (08:23)
--- NOTE | 2023-06-09 08:23 | XRAY Report ---
PROCEDURE: Chest 1V INDICATIONS: dyspnea TECHNIQUE: One view of the chest was acquired. COMPARISON: 10/13/2022. FINDINGS: Surgical changes and devices: Left-sided dialysis catheter tips are seen in the region of SVC.. Lungs and pleura: No pleural effusions or pneumothorax. Lungs are clear. Mediastinum: Mediastinal contours appear normal. Heart size is enlarged. Bones and chest wall: No suspicious bony lesions. Overlying soft tissues appear unremarkable. IMPRESSION: Cardiomegaly. No focal infiltrate, pleural effusion or pneumothorax. No significant changes from prev ious study. No significant discrepancies. Preliminary reading. Reviewed by: Surjit Jin MD on 06/09/2023 8:22 AM PST Approved by: Surjit Jin MD on 06/09/2023 8:22 AM PST Station ID: [id number]
--- NOTE | 2023-06-09 09:34 | Ultrasound Report ---
PROCEDURE: Abdomen Limited INDICATIONS: RUQ pain/elevated LFTs TECHNIQUE: Real-time focused scanning was performed of the abdomen, with image documentation. COMPARISONS: None. FINDINGS: Liver: Liver is normal in size and homogeneous in echotexture. Gallbladder: Marked gallbladder wall thickening. Wall stratification. Pericholecystic fluid. Positive sonographic Walker sign. Gallbladder hydrops. Gallbladder sludge and stones. Biliary ducts: Intrahepatic bile ducts are non-dilated. Extrahepatic bile duct caliber measures 6.5 mm. Normal is 6-7 mm or less in diameter, or 10 mm or less post-cholecystectomy. Pancreas: Visualized portions of the pancreas are sonographically normal. Right kidney: Small. Right kidney measures 7.8 cm long. No hydronephrosis or nephrolithiasis. No so lid masses. No complex renal cystic lesions which require follow-up. IVC: Intrahepatic inferior vena cava is patent. Miscellaneous: No free abdominal fluid. IMPRESSION: Acute cholecystitis. Reviewed by: Vlad Guzmán MD on 06/09/2023 9:33 AM [facility] Approved by: Vlad Guzmán MD on 06/09/2023 9:33 AM PST Station ID: [id number]
--- NOTE | 2023-06-09 12:01 | ED Physician Documentation ---
ED Addendum - Addendum Addendum: 06/09/23 Patient received in signout at shift change. She is boarding awaiting transfer for acute cholecystitis in the setting of a patient who receives dialysis. Patient was recently seen here a few days ago but on today's labs her LFTs are elevated. I have ordered a repeat ultrasound this morning which at this time shows acute cholecystitis. Her intrahepatic bile ducts are nondilated. Her extrahepatic bile duct measures around 6.5 mm. She was scheduled for dialysis on Wednesday and normally goes Mondays and Fridays but did not go last Wednesday. She was admitted in April for evaluation of her gallbladder and we are awaiting word on whether they will be able to accept her today. Have also asked for [facility] to reach out to other facilities to see if we can get her on waiting list at other facilities as we are not able to manage this patient here. Will continue on IV Zosyn. Remain NPO. 06/09/23 15:27 Multiple attempts to reach out to patient's recreation coordinator Dr. Woods to see if there would be any issue with her getting an MRI with contrast (MRCP) as we are unsure of when she will be transferred and could get dialysis. We have not been able to reach him as of yet. 06/09/23 19:04 Patient has remained boarding in the emergency department awaiting transfer. I have again asked the [facility] to reach out to other facilities for transfer. Patient to be signed out at shift change.
[2023-06-09] MEDS: MORPHINE 2 MG/ML CARPUJECT IVP STA ×2 (13:27)
[2023-06-09] MEDS ORDERED: PIPERACILLIN/TAZOBACTAM 2.25 GM in SODIUM CHLORIDE 0.9% MINIBAG 100 ML IV SCH (14:00)
[2023-06-09] MEDS: PIPERACILLIN/TAZOBACTAM 3.375 GM in SODIUM CHLORIDE 0.9% MINIBAG 100 ML IV SCH (18:42)
--- NOTE | 2023-06-09 20:20 | ED Physician Documentation ---
ED Addendum - Addendum Addendum: 06/09/23 20:18 patient endorsed to me by Dr. Rivera at 7pm shift change awaiting transfer for cholecystitis and hemodialysis (M/F). d/w [facility] transfer center who will reach out to [facility] surgery then hospitalist for possible transfer. they do think they have a bed. 06/09/23 22:22 d/w [facility] surgeon Dr. Yang, admitting physician. Disposition transfer condition stable Impression 1. cholecystitis 2. abdominal pain 3. ESRD on hemodialysis
[2023-06-09 22:42] LABS: ALBUMIN/GLOBULIN RATIO 0.9 (1.0-2.2); BILIRUBIN,TOTAL 1.1 mg/dL (0.2-1.0); CALCIUM 8.7 mg/dL (8.5-10.3); POTASSIUM 4.6 mmol/L (3.5-4.5); TOTAL PROTEIN 6.2 g/dL (6.4-8.9)
[2023-06-09 23:59] VITALS: BP 105/67; O2SAT 94
== END 2023-06-10 00:27 | disposition short-term general hospital (02) ==
LOC: EDUNIT# → ED 03:54
DX: K81.9 Cholecystitis, unspecified (principal); I12.0 Hypertensive chronic kidney disease with stage 5 chronic kidney disease or end stage renal disease; E11.22 Type 2 diabetes mellitus with diabetic chronic kidney disease; N18.6 End stage renal disease; E78.00 Pure hypercholesterolemia, unspecified; I48.91 Unspecified atrial fibrillation; R60.1 Generalized edema; Z99.2 Dependence on renal dialysis; Z86.73 Personal history of transient ischemic attack (TIA), and cerebral infarction without residual deficits; Z79.82 Long term (current) use of aspirin; Z79.899 Other long term (current) drug therapy; Z79.01 Long term (current) use of anticoagulants
CPT/HCPCS: 36415; 71045; 76705; 80053; 83605; 83690; 83735; 83880; 84100; 85025; 96365; 96366; 96367; 96375; 99285; J0131

== ENCOUNTER 2023-06-09 23:59 | Outpatient (CLI) | payer MEDICARE, OTHER | END 2023-06-10 | disposition short-term general hospital (02) | LOC: EMS 23:59 | PROVIDERS: ATTEND Emergency Medicine | DX: K81.9 Cholecystitis, unspecified (principal); N18.6 End stage renal disease; Z99.2 Dependence on renal dialysis | CPT/HCPCS: A0425; A0426 ==